=== PATIENT | female | born 1960 | race Caucasian/White ===

== ENCOUNTER 2016-07-27 14:11 | Emergency (ER) | payer OTHER, MEDICARE ==
[2016-07-27] MEDS ORDERED: Ondansetron INJ* 2 MG/ML VIAL IV ONE ×2 (14:30→15:30)
[2016-07-27 14:56] LABS: Hematocrit 43 % (35-47); Hemoglobin 14.3 g/dl (12.0-16.0); Mean Corpuscular HGB Conc 33 g/dl (31-36); Mean Corpuscular Hemoglobin 30 pg (27-31); Mean Corpuscular Volume 90 fL (80-97); Mean Platelet Volume 8 um3 (7.4-10.4); Red Blood Count 4.76 10^6/ul (4.0-5.4); Red Cell Distribution Width 14 % (10.5-15); White Blood Count 7.5 10^3/ul (3.5-10.8)
--- NOTE | 2016-07-27 15:15 | RAD ---
INDICATION: Right upper quadrant pain. COMPARISON: Comparison is made with a prior right upper quadrant ultrasound from November 23, 2011. TECHNIQUE: Multiple real-time images of the right upper quadrant were obtained. FINDINGS: The patient is status post cholecystectomy. No intra or extrahepatic ductal distention is present. The common bile duct measured 0.5 cm in diameter. The liver is normal in size without significant focal abnormality. The pancreas is partially obscured by overlying bowel gas. The right kidney is normal in size without evidence for hydronephrosis. IMPRESSION: STATUS POST CHOLECYSTECTOMY, OTHERWISE UNREMARKABLE STUDY.
--- NOTE | 2016-07-27 15:25 | RAD ---
HISTORY: Chest pain COMPARISONS: August 05, 2015 VIEWS:1: Single frontal portable view of the chest at 3:00 PM FINDINGS: LINES AND TUBES: None. CARDIOMEDIASTINAL SILHOUETTE: The cardiomediastinal silhouette is normal for portable technique. PLEURA: The costophrenic angles are sharp. No pleural abnormalities are noted. LUNG PARENCHYMA: The lungs are clear. ABDOMEN: The upper abdomen is clear. There is no subphrenic gas. BONES AND SOFT TISSUES: No bone or soft tissue abnormalities are noted. IMPRESSION: NO ACTIVE CARDIOPULMONARY DISEASE.
[2016-07-27] MEDS ORDERED: NS 0.9% 1000 ML* 1,000 ML IV ONE (15:30)
[2016-07-27 15:51] LABS: T4 8.52 g/dL (6.09-12.23)
[2016-07-27 15:52] LABS: TSH (Thyroid Stimulating Horm) 1.59 mcIU/mL (0.34-5.60)
[2016-07-27 16:13] LABS: Albumin 4.5 g/dL (3.2-5.2); BUN/Creatinine Ratio 10.6 (8-20); EGFR Non-African American 55.2 (>60); Globulin 3.2 g/dL (2-4); Total Bilirubin 0.3 mg/dL (0.2-1.0); Total Protein 7.7 g/dL (6.4-8.9)
[2016-07-27] MEDS ORDERED: fentaNYL* 50 MCG/ML 2 ML VIAL (100 MCG VIAL) IV SLOW PU ONE (18:16)
--- NOTE | 2016-07-27 18:38 | RAD ---
INDICATION: Right flank pain COMPARISON: CT abdomen pelvis 3 2014 TECHNIQUE: Noncontrast axial source images were acquired from the level hemidiaphragms to the symphysis pubis as part of CT imaging for renal stone. Lung bases: The lung bases are clear. Liver: The liver is normal in size. Noncontrast imaging shows no evidence of a hepatic mass or ductal dilatation. Gallbladder: Cholecystectomy. Spleen: The spleen is normal in size. The noncontrast CT appearance is normal. Pancreas: Noncontrast imaging shows no pancreatic mass or ductal dilitation. Adrenal glands: No masses are identified. Kidneys/Bladder: There is no evidence of nephrolithiasis or CT evidence of hydronephrosis. Noncontrast imaging shows no evidence of a renal mass. The bladder is unremarkable.. Adenopathy: There is no evidence of intraperitoneal or retroperitoneal adenopathy. Evaluation is limited without oral contrast. Fluid collections: There are no free or localized fluid collections. Vessels: There are atherosclerotic changes of the aorta and iliac vessels. There is no focal aneurysm. The IVC appears normal Pelvic organs: There is hysterectomy. There is no adnexal mass. There are multiple surgical clips in the minor pelvis GI tract: Evaluation of the bowel is limited without oral contrast. The stomach, small bowel, and lower GI tract appear grossly normal. There are no obstructive findings. The appendix is visualized and appears normal. Soft tissues: No soft tissue abnormalities of the extraperitoneal abdomen or pelvis are identified. Osseous structures: There are no acute osseous findings. IMPRESSION: NO ACUTE CT FINDINGS. NO EVIDENCE OF UROLITHIASIS. NO MASS OR INFLAMMATORY CHANGE. CHOLECYSTECTOMY. HYSTERECTOMY.
[2016-07-27 19:42] VITALS: BP 145/80
--- NOTE | 2016-07-27 20:47 | ED ---
manuel Mckay Timothy, scribed for Darryl Graves MD on 07/27/16 at 1432 . HPI Chest Pain - HPI Summary HPI Summary: Nichole Boggs is a 55 yo female presenting to [facility] with 8/10 left sided CP since 07/22/16. She was seen in [facility] ER for similar Sx 07/23/16. Her pain has persisted in her chest and mid-epigastric region, and increased. She presents today vomiting with excessive belching. She has not taken any PO medication as she drove here today, but did take dilaudid and zofran last night. Pt's MHx includes angina, CAD, HLD, HTN, coagulopathy, migraine, CVA, seizures, PE, GERD , obesity, kidney stones, hypothyroidism, PTSD, panic disorder, depression, anxietycholecystectomy, hysterectomy, coronary artery spasms. - History of Current Complaint Time Seen by Provider: 07/27/16 14:30 Hx Obtained From: Patient Onset/Duration: Started Days Ago, Still Present, Worse Since - now Timing: Constant Initial Severity: Moderate Current Severity: Moderate Pain Intensity: 8 Pain Scale Used: 0-10 Numeric Chest Pain Location: Discrete at: - left sided Chest Pain Radiates: No Aggravating Factor(s): Nothing Alleviating Factor(s): Nothing Associated Signs and Symptoms: Positive: Chest Pain, Nausea, Abdominal Pain, Vomiting - Additional Pertinent History Primary Care Physician: [id number] - Allergy/Home Medications Allergies/Adverse Reactions: Allergies Allergy/AdvReac Type Severity Reaction Status Date / Time Bee Venom Allergy Severe Anaphylatic Verified 08/06/15 01:20 Shock Hydroxyzine [From Atarax] Allergy Mild Anxiety Verified 08/06/15 01:20 Amitriptyline Allergy See Comment Verified 08/06/15 01:20 CI Pigment Blue 63 Allergy seizure Verified 08/06/15 01:20 [From Cymbalta] Ciprofloxacin [From Cipro] Allergy Itching Verified 08/06/15 01:20 Duloxetine [From Cymbalta] Allergy seizure Verified 08/06/15 01:20 Morphine Allergy Difficulty Verified 08/06/15 01:20 Breathing Sulfa Antibiotics Allergy Unknown Verified 08/06/15 01:25 Reaction Details Amoxicillin [From Augmentin] AdvReac Intermediate NAUSEA/VOMI Verified 08/06/15 01:20 T Clavulanic Acid AdvReac Intermediate NAUSEA/VOMI Verified 08/06/15 01:20 [From Augmentin] T almonds Allergy See Comment Uncoded 08/06/15 01:20 PMH/Surg Hx/FS Hx/Imm Hx Endocrine/Hematology History: Reports: Hx Anticoagulant Therapy, Hx Blood Disorders, Hx Thyroid Disease - benign tumor, Other Endocrine/Hematological Disorders - pt states blood disorder but unable to tell what its called Denies: Hx Diabetes, Hx Anemia Cardiovascular History: Reports: Hx Angina, Hx Coronary Artery Disease, Hx Hypercholesterolemia, Hx Hypertension, Other Cardiovascular Problems/Disorders - HX OF STROKE 2009 HX OF PE X2 MOST RECENT 2006 Denies: Hx Congestive Heart Failure, Hx Myocardial Infarction, Hx Pacemaker/ ICD, Hx Valvular Heart Disease Respiratory History: Reports: Hx Pneumonia, Hx Pulmonary Embolism, Hx Seasonal Allergies Denies: Hx Asthma, Hx Chronic Obstructive Pulmonary Disease (COPD) GI History: Reports: 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., Hx Gastroesophageal Reflux Disease, Hx Gastrointestinal Bleed, Hx Hiatal Hernia, Other GI Disorders - Esophageal spasms Denies: Hx Jaundice History: Reports: Hx Kidney Stones - 4x Denies: Hx Dialysis, Hx Renal Disease Musculoskeletal History: Reports: Hx Arthritis, Hx Back Problems, Hx Bursitis, Hx Orthopedic Injury, Hx Osteoporosis Sensory History: Reports: Hx Contacts or Glasses, Hx Legally Blind - L eye Denies: Hx Hearing Aid Opthamlomology History: Reports: Hx Contacts or Glasses, Hx Legally Blind - L eye Neurological History: Reports: Hx Headaches, Hx Migraine, Hx Seizures - 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, Other Neuro Impairments/Disorders - 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 Psychiatric History: Reports: Hx Anxiety, Hx Depression, Hx Panic Disorder, Hx Post Traumatic Stress Disorder - Cancer History Cancer Type, Location and Year: CERVICAL CA Hx Chemotherapy: No Hx Radiation Therapy: No - Surgical History Surgery Procedure, Year, and Place: GALLBLADDER 98,T&A 91, OVARY REMOVED, SHOULDER X3,WRIST,HYSTERECTOMY,TONSILS Hx Anesthesia Reactions: No - Immunization History Date of Tetanus Vaccine: PT STATES UNSURE Date of Influenza Vaccine: NONE Infectious Disease History: No Infectious Disease History: Denies: Traveled Outside the [place] in Last 30 Days - Family History Known Family History: Positive: Cardiac Disease, Blood Disorder - Social History Alcohol Use: None Hx Substance Use: No Substance Use Type: Reports: None Substance Use Comment - Amount & Last Used: Fentanyl patch 75mcg. Hx Tobacco Use: No Smoking Status (MU): Never Smoked Tobacco Review of Systems Constitutional: Negative Eyes: Negative ENT: Negative Positive: Chest Pain Respiratory: Negative Positive: Abdominal Pain, Vomiting, Nausea Genitourinary: Negative Musculoskeletal: Negative Skin: Negative Neurological: Negative Psychological: Normal All Other Systems Reviewed And Are Negative: Yes Physical Exam - Summary Physical Exam Summary: VITAL SIGNS: Reviewed. GENERAL: Patient is an obese female whos is actively vomiting in the ED. Patient is not in any acute respiratory distress. HEAD AND FACE: No signs of trauma. No ecchymosis, hematomas or skull depressions. No sinus tenderness. EYES: PERRLA, EOMI x 2, No injected conjunctiva, no nystagmus. EARS: Hearing grossly intact. Ear canals and tympanic membranes are within normal limits. MOUTH: Oropharynx within normal limits. NECK: Supple, trachea is midline, no adenopathy, no JVD, no carotid bruit, no c- spine tenderness, neck with full ROM. CHEST: Symmetric, no tenderness at palpation LUNGS: Clear to auscultation bilaterally. No wheezing or crackles. CVS: Regular rate and rhythm, S1 and S2 present, no murmurs or gallops appreciated. ABDOMEN: Soft, Positive RUQ tenderness. No signs of distention. No rebound no guarding, and no masses palpated. Bowel sounds are normal. EXTREMITIES: FROM in all major joints, no edema, no cyanosis or clubbing. NEURO: Alert and oriented x 3. No acute neurological deficits. Speech is normal and follows commands. SKIN: Dry and warm Triage Information Reviewed: Yes Vital Signs On Initial Exam: Initial Vitals Temp Pulse Resp BP Pulse Ox 99.1 F 101 20 138/97 100 07/27/16 14:15 07/27/16 14:15 07/27/16 14:15 07/27/16 14:15 07/27/16 14:15 Vital Signs Reviewed: Yes Diagnostics - Vital Signs Vital Signs Temp Pulse Resp BP Pulse Ox 07/27/16 14:15 99.1 F 101 20 138/97 100 - Laboratory Result Diagrams: 07/27/16 14:40 07/27/16 14:40 Lab Statement: Any lab studies that have been ordered have been reviewed, and results considered in the medical decision making process. - Radiology CXR Xray Interpretation: No Acute Changes - IMPRESSION: NO ACTIVE CARDIOPULMONARY DISEASE. Radiology Interpretation Completed By: Radiologist - CT A/P CT Interpretation: No Acute Changes - IMPRESSION: NO ACUTE CT FINDINGS. NO EVIDENCE OF UROLITHIASIS. NO MASS OR INFLAMMATORY CHANGE. CHOLECYSTECTOMY. HYSTERECTOMY. CT Interpretation Completed By: Radiologist - Ultrasound No standard instances Ultrasound Interpretation: No Acute Changes - IMPRESSION: STATUS POST CHOLECYSTECTOMY, OTHERWISE UNREMARKABLE STUDY. Ultrasound Interpretation Completed By: Radiologist - US abdomen - EKG 1423 Cardiac Rate: Tachycardia - 102 BPM EKG Interpretation: Sinus tachycardia @ 102 BPM, no STEMI Re-Evaluation - Re-Evaluation First Eval Re-Evaluation Time: 19:19 Change: Improved Comment: Pt was informed of results of imaging and lab studies. She is agreeable to the current course of Tx and discharge plan. Chest Pain Course/Dx - Course Assessment/Plan: Nichole Boggs is a 55 yo female presenting to [facility] with left sided CP and N/V since 07/22/16, seen in [facility] ED 07/23/16. Pt's bloodwork was wnl, except creatinine 1.04 glucose 102. Her abd US shows no acute pathology as does her A/P CT. In her ED course, she was given zofran for vomiting, and morphine for pain. She was hydstated via IV. Two troponin tests were conducted 4 hours apart, both were negative. Therefore, Pt will be discharged with instructions to follow up with her PCP, particularly if her symptoms persist. She is hemodynamically stable at this time. I believe patient may benefit of a ERCP. She reports pain and and vomiting only starts after eating meals. I discussed all the findings and test results with the patient. Patient was instructed to return to the emergency room immediately if any of the symptoms return or worsens. They were explained the possibility of an early abdominal pathology which was not detected at this time despite the physical exam and testing. They understand and agree. Abdominal exam before discharge: Soft, NT. No signs of distention. BS present. No rebound no guarding , and no masses palpated. Patient is alert and oriented and hemodynamically stable. Patient is to follow up with primary care physician in the next 2 to 3 days. Patient agree and understands. - Chest Pain Differential Diagnosis/HQI/PQRI: Acute MS, ACS, Angina, CHF, GI Disease, Lower Respiratory Infection - Diagnoses Provider Diagnoses: Abdominal pain, Chest pain, Nausea, Vomiting Discharge - Discharge Plan Condition: Stable Disposition: HOME Prescriptions: Ondansetron ODT TAB* [Zofran 4 MG Odt TAB*] 4 mg PO Q6H PRN #10 tab.odt PRN Reason: Vomiting Patient Education Materials: Abdominal Pain (ED), Chest Pain (ED), Acute Nausea and Vomiting (ED) Referrals: Sandee Gonzalez MD [Primary Care Provider] - As Soon As Possible Additional Instructions: Please follow up with your primary care physician as soon as possible regarding your visit to the emergency department today. Return to the emergency department with any new or recurring symptoms. The documentation as recorded by the manuel smith Timothy accurately reflects the service I personally performed and the decisions made by Star de la rosa Walter, MD.
== END 2016-07-27 19:43 | disposition home or self-care (01) ==
LOC: ED 14:11
DX: R07.9 Chest pain, unspecified (principal); R11.2 Nausea with vomiting, unspecified; R10.9 Unspecified abdominal pain; Z90.49 Acquired absence of other specified parts of digestive tract
CPT/HCPCS: 36415; 71010; 74176; 76705; 80053; 82550; 82553; 83605; 83735; 84436; 84443; 84484; 85025; 85610; 85730; 93005; 96374; 96375; 99283; J2405; J3010

== ENCOUNTER 2016-08-08 13:22 | Inpatient (IN) | payer OTHER, MEDICARE ==
[2016-08-08] MEDS ORDERED: Morphine INJ* 4 MG/ML 1 ML SYRINGE IV ONE (13:56)
[2016-08-08] MEDS ORDERED: NS 0.9% 1000 ML* 1,000 ML IV ONE (13:56)
[2016-08-08 14:18] LABS: Hematocrit 44 % (35-47); Hemoglobin 14.9 g/dl (12.0-16.0); Mean Corpuscular HGB Conc 34 g/dl (31-36); Mean Corpuscular Hemoglobin 30 pg (27-31); Mean Corpuscular Volume 90 fL (80-97); Mean Platelet Volume 9 um3 (7.4-10.4); Red Blood Count 4.92 10^6/ul (4.0-5.4); Red Cell Distribution Width 14 % (10.5-15); White Blood Count 6.9 10^3/ul (3.5-10.8)
[2016-08-08 14:32] LABS: Albumin 4.7 g/dL (3.2-5.2); BUN/Creatinine Ratio 13.2 (8-20); C Reactive Protein 2.81 mg/L (< 5.00); Calcium 10.1 mg/dL (8.6-10.3); EGFR African American 63.9 (>60); EGFR Non-African American 49.7 (>60); Globulin 3.2 g/dL (2-4); Magnesium 1.8 mg/dL (1.9-2.7); Potassium 3.8 mmol/L (3.5-5.0); Total Bilirubin 0.5 mg/dL (0.2-1.0); Total Protein 7.9 g/dL (6.4-8.9)
[2016-08-08] MEDS ORDERED: Ondansetron INJ* 2 MG/ML VIAL IV ONE (15:10)
[2016-08-08] MEDS ORDERED: Morphine INJ* 2 MG/ML 1 ML SYRINGE IV ONE ×2 (15:56→17:37)
--- NOTE | 2016-08-08 15:56 | ED ---
Abdominal Pain/Female - HPI Summary HPI Summary: Patient arrives to ED after transfer by Dr. Rhodes in GI for chest pain. However, on arrival, patient is complaining of LUQ pain and epigastric pain radiating to the back since this morning. She states the pain began about 1 week ago and she was able to keep it at bay by not eating and drinking very little. She ate a biscuit this morning and states the pain returned at 10/10 immediately after eating. She is uncomfortable on exam and tearful. She continues to have gas and is burping on exam. She notes to 5 days of diarrhea with "pus" look to it. She has a significant PMHx of CAD and stroke. She takes Lovenox once daily for previous stroke. She was seen at Dr. Rhodes's office 2 weeks ago, but did not have the severity of symptoms she has currently. PCP is Dr. Gonzalez. - History of Current Complaint Chief Complaint: EDAbdPain Stated Complaint: ABD PAIN Time Seen by Provider: 08/08/16 13:32 Hx Obtained From: Patient ?: No Onset/Duration: Gradual Onset Timing: Constant Severity Initially: Moderate Severity Currently: Severe Pain Intensity: 6 Pain Scale Used: 0-10 Numeric Location: Discrete At: RUQ, Epigastric Radiates: Yes Radiates to: Back Character: Sharp, Burning Aggravating Factor(s): Food Alleviating Factor(s): Spontaneous Resolution - by not eating - Risk Factors Ectopic Risk Factor: Maternal Age ^ 30 Ovarian Torsion Risk Factor: Hysterectomy Allergies/Adverse Reactions: Allergies Allergy/AdvReac Type Severity Reaction Status Date / Time Bee Venom Allergy Severe Anaphylatic Verified 08/08/16 21:15 Shock Hydroxyzine [From Atarax] Allergy Mild Anxiety Verified 08/08/16 21:15 Amitriptyline Allergy See Comment Verified 08/08/16 21:15 CI Pigment Blue 63 Allergy seizure Verified 08/08/16 21:15 [From Cymbalta] Ciprofloxacin [From Cipro] Allergy Itching Verified 08/08/16 21:15 Duloxetine [From Cymbalta] Allergy seizure Verified 08/08/16 21:15 Morphine Allergy Difficulty Verified 08/08/16 21:15 Breathing Sulfa Antibiotics Allergy Unknown Verified 08/08/16 21:15 Reaction Details Amoxicillin [From Augmentin] AdvReac Intermediate NAUSEA/VOMI Verified 08/08/16 21:15 T Clavulanic Acid AdvReac Intermediate NAUSEA/VOMI Verified 08/08/16 21:15 [From Augmentin] T almonds Allergy See Comment Uncoded 08/08/16 21:15 Home Medications: Home Medications Coenzyme Q10 (Ubidecarenone) [Coq-10] 400 mg PO BEDTIME 08/08/16 [History Confirmed 08/08/16] Gabapentin (Once-Daily) [Gralise] 600 mg PO BEDTIME 08/08/16 [History Confirmed 08/08/16] Losartan Potassium [Cozaar] 50 mg PO BEDTIME 08/08/16 [History Confirmed ] Multiple Vitamins W/ Minerals [Multivitamin Women] 1 tab PO DAILY 08/08/16 [ History Confirmed 08/08/16] Rosuvastatin Calcium [Crestor] 10 mg PO BEDTIME 08/08/16 [History Confirmed ] PMH/Surg Hx/FS Hx/Imm Hx Previously Healthy: No - CVA, CAD, PVD, thryoid, on anticoagulants Endocrine/Hematology History: Reports: Hx Anticoagulant Therapy, Hx Blood Disorders, Hx Thyroid Disease - benign tumor, Other Endocrine/Hematological Disorders - pt states blood disorder but unable to tell what its called Denies: Hx Diabetes, Hx Anemia Cardiovascular History: Reports: Hx Angina, Hx Coronary Artery Disease, Hx Hypercholesterolemia, Hx Hypertension, Other Cardiovascular Problems/Disorders - HX OF STROKE 2008 HX OF PE X2 MOST RECENT 2006 Denies: Hx Congestive Heart Failure, Hx Myocardial Infarction, Hx Pacemaker/ ICD, Hx Valvular Heart Disease Respiratory History: Reports: Hx Pneumonia, Hx Pulmonary Embolism, Hx Seasonal Allergies Denies: Hx Asthma, Hx Chronic Obstructive Pulmonary Disease (COPD) GI History: Reports: 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., Hx Gastroesophageal Reflux Disease, Hx Gastrointestinal Bleed, Hx Hiatal Hernia, Other GI Disorders - Esophageal spasms Denies: Hx Jaundice History: Reports: Hx Kidney Stones - 4x Denies: Hx Dialysis, Hx Renal Disease Musculoskeletal History: Reports: Hx Arthritis, Hx Back Problems, Hx Bursitis, Hx Orthopedic Injury, Hx Osteoporosis Sensory History: Reports: Hx Contacts or Glasses, Hx Legally Blind - L eye Denies: Hx Hearing Aid Opthamlomology History: Reports: Hx Contacts or Glasses, Hx Legally Blind - L eye Neurological History: Reports: Hx CVA, Hx Headaches, Hx Migraine, Hx Seizures - Seizures caused by cymbalta 2009, Other Neuro Impairments/Disorders - 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 Psychiatric History: Reports: Hx Anxiety, Hx Depression, Hx Panic Disorder, Hx Post Traumatic Stress Disorder - Cancer History Cancer Type, Location and Year: CERVICAL CA Hx Chemotherapy: No Hx Radiation Therapy: No - Surgical History Surgery Procedure, Year, and Place: GALLBLADDER 98,T&A 91, OVARY REMOVED, SHOULDER X3,WRIST,HYSTERECTOMY,TONSILS Hx Anesthesia Reactions: No - Immunization History Date of Tetanus Vaccine: PT STATES UNSURE Date of Influenza Vaccine: NONE Infectious Disease History: No Infectious Disease History: Denies: Traveled Outside the [place] in Last 30 Days - Family History Known Family History: Positive: Cardiac Disease, Hypertension, Blood Disorder - Social History Occupation: Employed Full-time Lives: With Family Alcohol Use: None Hx Substance Use: No Substance Use Type: Reports: None Substance Use Comment - Amount & Last Used: Fentanyl patch 75mcg. Hx Tobacco Use: No Smoking Status (MU): Never Smoked Tobacco Review of Systems Constitutional: Negative Cardiovascular: Negative Respiratory: Negative Positive: Abdominal Pain, Vomiting, Diarrhea - with "pus" look, Nausea Positive: no symptoms reported, see HPI Musculoskeletal: Negative Skin: Negative Neurological: Negative Psychological: Normal All Other Systems Reviewed And Are Negative: Yes Physical Exam Triage Information Reviewed: Yes Vital Signs On Initial Exam: Initial Vitals Temp Pulse Resp BP Pulse Ox 98.8 F 68 22 136/68 97 08/08/16 13:23 08/08/16 13:23 08/08/16 13:23 08/08/16 13:23 08/08/16 13:23 Vital Signs Reviewed: Yes Appearance: Positive: Well-Appearing, Well-Nourished Skin: Positive: Warm, Skin Color Reflects Adequate Perfusion Eyes: Positive: EOMI, SHADI, Conjunctiva Clear Neck: Positive: Supple Respiratory/Lung Sounds: Positive: Clear to Auscultation, Breath Sounds Present Cardiovascular: Positive: Normal, RRR Abdomen Description: Positive: Soft, Other: - tenderness in RUQ and epigastric pain radiating to the back with diarrhea and N/V Bowel Sounds: Positive: Hypoactive Musculoskeletal: Positive: Normal, Strength/ROM Intact Neurological: Positive: Alert, Oriented to Person Place, Time, Speech Normal Psychiatric: Positive: Normal AVPU Assessment: Alert - [place] Coma Scale Coma Scale Total: 15 Diagnostics - Vital Signs Vital Signs Temp Pulse Resp BP Pulse Ox 08/08/16 15:00 91 96 08/08/16 14:18 18 08/08/16 14:00 90 99 08/08/16 13:36 93 97 08/08/16 13:35 133/66 08/08/16 13:23 98.8 F 68 22 136/68 97 - Laboratory Lab Results: Lab Results 08/08/16 08/08/16 08/08/16 Range/Units 13:55 13:55 13:55 WBC 6.9 (3.5-10.8) 10^3/ul RBC 4.92 (4.0-5.4) 10^6/ul Hgb 14.9 (12.0-16.0) g/dl Hct 44 (35-47) % MCV 90 (80-97) fL MCH 30 (27-31) pg MCHC 34 (31-36) g/dl RDW 14 (10.5-15) % Plt Count 312 (150-450) 10^3/ul MPV 9 (7.4-10.4) um3 Neut % (Auto) 59.4 (38-83) % Lymph % (Auto) 27.2 (25-47) % [place] % (Auto) 9.9 H (1-9) % Eos % (Auto) 2.8 (0-6) % Baso % (Auto) 0.7 (0-2) % Absolute Neuts (auto) 4.1 (1.5-7.7) 10^3/ul Absolute Lymphs (auto) 1.9 (1.0-4.8) 10^3/ul Absolute Monos (auto) 0.7 (0-0.8) 10^3/ul Absolute Eos (auto) 0.2 (0-0.6) 10^3/ul Absolute Basos (auto) 0 (0-0.2) 10^3/ul Absolute Nucleated RBC 0 10^3/ul Nucleated RBC % 0 Sodium 137 (133-145) mmol/L Potassium 3.8 (3.5-5.0) mmol/L Chloride 102 (101-111) mmol/L Carbon Dioxide 24 (22-32) mmol/L Anion Gap 11 (2-11) mmol/L BUN 15 (6-24) mg/dL Creatinine 1.14 H (0.51-0.95) mg/dL Est GFR ( Amer) 63.9 (>60) Est GFR (Non-Af Amer) 49.7 (>60) BUN/Creatinine Ratio 13.2 (8-20) Glucose 78 (70-100) mg/dL Lactic Acid 1.0 (0.5-2.0) mmol/L Calcium 10.1 (8.6-10.3) mg/dL Magnesium 1.8 L (1.9-2.7) mg/dL Total Bilirubin 0.50 (0.2-1.0) mg/dL AST 33 (13-39) U/L ALT 38 (7-52) U/L Alkaline Phosphatase 61 (34-104) U/L Total Creatine Kinase 71 (10-223) U/L C-Reactive Protein 2.81 (< 5.00) mg/L Total Protein 7.9 (6.4-8.9) g/dL Albumin 4.7 (3.2-5.2) g/dL Globulin 3.2 (2-4) g/dL Albumin/Globulin Ratio 1.5 (1-3) Amylase 31 (29-103) U/L Lipase 20 (11.0-82.0) U/L Result Diagrams: 08/09/16 13:22 08/08/16 13:55 Lab Statement: Any lab studies that have been ordered have been reviewed, and results considered in the medical decision making process. - CT No standard instances CT Interpretation: Positive (See Comments) CT Interpretation Completed By: Radiologist - IMPRESSION: 1. Hepatic steatosis. 2. Post cholecystectomy. 3. Potential early acute appendicitis with inflammatory change surrounding the appendix new compared with the July 27, 2016 exam. As this doesn't grossly correlate with LEFT upper quadrant pain correlate with clinical assessment. 4. Post hysterectomy. Negative for adnexal region lesions. 5. Negative for lymphadenopathy. 6. Peripheral vascular disease without aneurysm of the abdominal aorta. Abdominal Pain Fem Course/Dx - Course Course Of Treatment: Morphine given in ambulance. Patient arrives with 10/10 RUQ and epigastric tenderness which radiates to the back. No CVA tenderness. This has been present for [address] abd pelvis shows: 3. Potential early acute appendicitis with inflammatory change surrounding the appendix. new compared with the July 27, 2016 exam. As this doesn't grossly correlate with LEFT. upper quadrant pain correlate with clinical assessment. Patient is not well controlled on morphine. Fluids given. D-Dimer negative. Pleurisy symptoms. Lovenox daily, unable to take NSAIDS. Dr. De Jesus called at 6 :30p for possible surgical need for appendicitis. Dr. Fleming called at 6:45p for possible pain control admit. Patient agrees to stay if needed. EKG WNL NSR. - Diagnoses Differential Diagnosis: Positive: Appendicitis, Bowel Obstruction, Diverticulitis, Hepatitis, Pancreatitis Provider Diagnoses: Abdominal pain Discharge - Discharge Plan Condition: Guarded Disposition: ADMITT[facility] TO [facility]
[2016-08-08 16:14] LABS: Urine Bacteria Absent (Absent); Urine Bilirubin Negative (Negative); Urine Glucose Negative (Negative); Urine Nitrite Negative (Negative)
[2016-08-08] MEDS ORDERED: Iodixanol* (CONTRAST) 320 MG/ML 100 ML SDV IV ONE (16:27)
--- NOTE | 2016-08-08 17:53 | RAD ---
INDICATION: Severe epigastric and LEFT upper quadrant pain radiating to the back. Post cholecystectomy. Previous ovary resection and hysterectomy. History of cervical carcinoma. COMPARISON: July 27, 2016 CT. TECHNIQUE: Multidetector CT images were obtained from the lung bases to the ischial tuberosities with 125 mL Visipaque 320 IV and oral contrast. Multiplanar reformation. REPORT: Unremarkable visualized inferior thorax. Decreased density of the liver consistent with fatty infiltration. Negative for focal hepatic lesions. Post cholecystectomy. Negative for biliary dilatation. Unremarkable pancreas and spleen. Negative for CT abnormality of the upper GI or small bowel. 7 mm diameter minimally prominent appendix demonstrates gas within the proximal to mid segment. Mild periappendiceal fat stranding which appears new compared with the prior exam. No appendicolith visualized. A few colonic diverticula are visualized. No evidence for acute diverticulitis. Negative for ascites, free air, or significant hernias. Normal adrenal glands. Unremarkable kidneys with symmetric nephrograms and pyelograms. Unremarkable ureters and largely decompressed urinary bladder. Post hysterectomy. Pelvic surgical clips. No suspicious lesions at the adnexal regions. Negative for lymphadenopathy. Atherosclerotic plaque of normal diameter abdominal aorta and iliac arteries. Physiologic distention of the IVC. Negative for suspicious osseous lesions. IMPRESSION: 1. Hepatic steatosis. 2. Post cholecystectomy. 3. Potential early acute appendicitis with inflammatory change surrounding the appendix new compared with the July 27, 2016 exam. As this doesn't grossly correlate with LEFT upper quadrant pain correlate with clinical assessment. 4. Post hysterectomy. Negative for adnexal region lesions. 5. Negative for lymphadenopathy. 6. Peripheral vascular disease without aneurysm of the abdominal aorta.
[2016-08-08] MEDS ORDERED: Famotidine IV* 10 MG/ML 2 ML (20 mg) IV SLOW PU ONE (18:36)
[2016-08-08] MEDS: HYDROmorphone* 1 MG/ML 1 ML SYR IV SLOW PU PRN (21:10)
[2016-08-08] MEDS ORDERED: Heparin VIAL(*) 5000 UNITS/ML VIAL (FIVE THOUSAND) SUBCUT SCH (22:00)
[2016-08-08] MEDS: NS 0.9% 1000 ML* 1,000 ML IV SCH (22:11)
[2016-08-08] MEDS: Ondansetron INJ* 2 MG/ML VIAL IV PRN (22:18)
[2016-08-08] MEDS ORDERED: GABAPENTIN 600 MG PO SCH (22:45)
[2016-08-08] MEDS: Ondansetron ODT TAB* 4 MG PO PRN (23:52)
[2016-08-09] MEDS ORDERED: PROCHLORPERAZINE INJ 5 MG/ML 2 ML VIAL ONE (00:51)
[2016-08-09] MEDS: PROCHLORPERAZINE INJ 5 MG/ML 2 ML VIAL IV PRN (00:54)
[2016-08-09] MEDS: Atorvastatin* 20 MG TAB PO SCH ×2 (01:16→20:21)
[2016-08-09] MEDS: Losartan TAB* 25 MG PO SCH ×2 (01:16→20:21)
[2016-08-09] MEDS: Ondansetron INJ* 2 MG/ML VIAL IV PRN ×4 (02:24→23:30)
[2016-08-09] MEDS: Gabapentin CAP(*) 300 MG PO SCH ×2 (02:25→20:20)
[2016-08-09] MEDS: Diltiazem CD CAP* 180 MG PO SCH ×2 (03:00→20:19)
[2016-08-09] MEDS: Ondansetron ODT TAB* 4 MG PO PRN (05:51)
[2016-08-09] MEDS: Levothyroxine TAB* 50 MCG TAB PO SCH (05:51)
[2016-08-09] MEDS: HYDROmorphone* 1 MG/ML 1 ML SYR IV SLOW PU PRN ×4 (06:21→23:30)
--- NOTE | 2016-08-09 08:09 | HP ---
HISTORY AND PHYSICAL: DATE OF ADMISSION: 08/08/16 PRIMARY CARE PHYSICIAN: Sandee Gonzalez MD COLD STORAGE WORKER: Darien Lopez MD CHIEF COMPLAINT: Abdominal pain. HISTORY OF PRESENT ILLNESS: The patient is a 55-year-old woman who presents to [facility] with a chief complaint of abdominal pain, mostly on the left upper quadrant. She states she started having initially in the upper right quadrant. A couple of weeks ago, went to [place] for further evaluation. They did a workup in the ER that apparently was negative and she was sent home. She said she stopped eating for a couple of days, felt better, but then it came back again. She saw Dr. Lopez after that and again stopped eating. She felt better and then she went ahead and had breakfast this past Tuesday at [employer] with her grandchildren. After that she developed significant nausea , vomiting, and diarrhea within a few hours. She stopped eating this weekend after that. She then tried some asad sixto and crackers and felt a little bit better. This morning, ate breakfast again. She had some asad sixto and crackers and then developed left upper quadrant abdominal pain that was significant. She had no fevers or chills. Had some nausea and vomiting. No diarrhea at this time. In the ED, the patient was evaluated and had CAT scan, which indicated possibly early appendicitis if consistent with her clinical picture. The issue is that this is not consistent with her clinical picture. PAST MEDICAL HISTORY: She has a past medical history significant for hypercoagulable state, pulmonary emboli, hypertension, depression, anxiety, migraines, hypothyroidism, retinal artery occlusion on the left, chronic back pain, and ischemic colitis. PAST SURGICAL HISTORY: Significant for EDITH-BSO, laparoscopic cholecystectomy, and 3 right shoulder surgeries. CURRENT MEDICATIONS: Are as follows: 1. Multivitamin 1 tablet daily. 2. Coenzyme Q10 400 mg at bedtime. 3. Rosuvastatin 10 mg at bedtime. 4. Losartan 50 mg at bedtime. 5. Gabapentin 600 mg at bedtime. 6. Lovenox 150 mg subcu q.24 hours. 7. Diltiazem 180 mg at bedtime. 8. Aspirin 81 mg daily. 9. Omeprazole 20 mg in the morning. 10. Levothyroxine 50 mcg daily. 11. Zofran 4 mg every 6 hours as needed. ALLERGIES/ADVERSE REACTIONS: HYDROXYZINE, CYMBALTA, AUGMENTIN, MORPHINE, AMITRIPTYLINE, C1 PIGMENT BLUE, BEE VENOM, ALMONDS, SULFA, and CIPRO. FAMILY HISTORY: Significant for a mother who had a history of cardiomyopathy. Father of coronary artery disease and heart attack at age 49. She has a sister, who had RI at age 55, and also a history of psoriatic arthritis in her mother who has a history of psoriatic arthritis. SOCIAL HISTORY: No tobacco, alcohol, or recreational drug use. 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 She is to her , Gil, also known as Kamaljit Boggs, who is her healthcare proxy. She has 2 children. REVIEW OF SYSTEMS: A 14-point review of systems is completed with the patient. All pertinent positives and negatives are in the history of present Illness, otherwise it is negative. PHYSICAL EXAMINATION GENERAL: A pleasant woman lying in bed, in no acute distress. VITAL SIGNS: Temperature 97.2 degrees, heart rate 82 beats per minute, respiratory rate 16 breaths per minute, pulse ox 97%, and blood pressure 138/81. HEENT: Normocephalic and atraumatic. Pupils are equal, round and reactive to light. Moist mucous membranes. NECK: Supple. No JVD, bruits, palpable thyroid or lymphadenopathy. CHEST: Clear to auscultation and percussion bilaterally. CARDIOVASCULAR: S1, S2 appreciated. ABDOMEN: Positive bowel sounds in all 4 quadrants. Soft, nontender, and nondistended. EXTREMITIES: No cyanosis, clubbing, or edema; +2 peripheral pulses bilaterally. NEUROLOGIC: Alert and oriented x3. Moves all extremities. SKIN: No rashes or abnormalities. DIAGNOSTIC STUDIES/LAB DATA: White count 6.9, hemoglobin 14.9, hematocrit 44, and platelets 312. Sodium 137, potassium 3.8, chloride 102, CO2 of 24, BUN 15, creatinine 1.14, and glucose is 78. D-dimer is less than 200. Urine is unremarkable. CT of the abdomen and pelvis was interpreted by Radiology as hepatic steatosis, post cholecystectomy, potential early acute appendicitis with inflammatory changes surrounding the appendix, new compared to 07/27/16 exam. As this does not closely correlate with left upper quadrant pain correlating with clinical assessment, post hysterectomy, negative for adnexal lesions, negative for lymphadenopathy, peripheral vascular disease, without aneurysm of the abdominal aorta. EKG shows normal sinus rhythm at 77 beats per minute, normal axis, and no acute ST- T wave changes. ASSESSMENT AND PLAN: 1. Abdominal pain: At this point, it is unexplainable as to her pain. She states she has no real history of irritable bowel syndrome. His belly is soft on physical examination. It is actually nontender when I palpated. For now, I will observe her overnight. Surgery is to see her in the morning, IV fluids, and pain management. 2. Hypothyroidism: Stable. Continue Synthroid. 3. Hypertension: Borderline control, continue current regimen, and adjust medications accordingly. 4. Hypercoagulable state: Continue Lovenox. 5. FEN: N.P.O. 6. DVT prophylaxis: She is on Lovenox. 7. Code status: The patient is a full code. TIME SPENT: Over 75 minutes was spent on this H and P; more than 40 minutes of which was spent in direct face-to -face contact with the patient, evaluation, physical exam, counseling, and coordination of care. CC: Sandee Gonzalez MD; Darien Lopez MD * [id number]/[facility] #: [id number] MTDD
[2016-08-09] MEDS: Multivitamins/Minerals TAB PO SCH (08:35)
[2016-08-09] MEDS: Enoxaparin(*) 150 MG/ML 1 ML SYRINGE SUBCUT SCH (08:58)
[2016-08-09] MEDS: Omeprazole CAP* 20 MG PO SCH (09:10)
[2016-08-09] MEDS: NS 0.9% 1000 ML* 1,000 ML IV SCH ×2 (09:11→19:54)
--- NOTE | 2016-08-09 09:55 | CONS ---
CONSULTATION NOTE DATE OF CONSULT: 08/09/16 PATIENT OF: Dr. Michael REFERRED TO: Dr. Jernigan REASON FOR CONSULTATION: Abdominal pain. HISTORY OF PRESENT ILLNESS: Mrs. Boggs is a pleasant, 55-year-old female who was admitted to the hospital via the emergency room last night with complaints of left upper quadrant abdominal pain. Patient notes that her pain started roughly two weeks ago and has been intermittent in nature. The pain usually gets worse after she eats and gets better if she doesn't eat anything. She has not been eating or drinking much for the last two weeks. On Tuesday morning, she had some biscuit and other breakfast items at [employer], after which the pain has gotten severely worse. She described it as a sharp, aching pain, localized to her left upper quadrant and epigastric area with associated nausea and vomiting. Patient was very uncomfortable, for which she was seen at [facility] emergency room initially two weeks ago. She had laboratory workup and a CT scan of the abdomen and pelvis that was essentially unremarkable. Patient was asked to follow up with Dr. Rhodes for a GI consult, and she was seen by him and noted to have more left upper quadrant and epigastric pain for which she was sent to the ER for further evaluation. It is noted that patient has a significnat cardiovascular history with prior cardiac catheterization, but she denied any stent placement at that time. She had laboratory workup and another CT scan last night that was significant for questionable early appendicitis and some inflammation around the appendix, for whcih we were asked to see the patient for further evaluation. Patient, this morning, appears comfortable and she denies any recurrent pain. She has been taking morphine as needed for pain management as well as Zofran for nausea. She also notes diarrhea for the last two days with some pus noted, but denies any blood in the stools. She had her gall bladder out in the past, and she denies any changes in the color of stools, jaundice, or any other associated symptoms. PAST MEDICAL HISTORY: As mentioned above, remarkable for cardiovascular disease , coronary artery disease, PVD, thyroid disease, and she has been chronically on Lovenox as an anticoagulant. She also has a history of a blood disorder, thyroid disease, benign tumor; however, she was unable to tell me exactly why she has been chronically on Lovenox as mentioned above. PAST SURGICAL HISTORY: Significant for cholecystectomy in 1997; T and A in 1990 ; shoulder surgery x3; wrist surgeries; hysterectomy as well as oophorectomy in the past. CURRENT MEDICATIONS: Her medications at home include - 1. Aspirin 81 mg po q daily. 2. Co-enzyme Q10 400 mg po q daily. 3. Diltiazem 120 mg po q daily. 4. Lovenox 150 mg subcu q daily. 5. Gabapentin 600 mg po q daily. 6. Levothyroxine 50 mcg po q daily. 7. Losartan 50 mg po q daily. 8. Multivitamin one tab a day. 9. Prilosec 20 mg po q a.m. 10. Zofran ODT 4 mg po q 6 hours as needed for nausea. 11. Crestor 10 mg po q hs. ALLERGIES: Patient has multiple allergies including on the list - 1. AMOXICILLIN - causing nausea and vomiting. 2. AUGMENTIN - causing nausea and vomiting. 3. SULFA ANTIBIOTICS - causing anaphylactic shock. 4. ALMONDS. 5. CYMBALTA. 6. CIPRO. 7. AMITRIPTYLINE. 8. HYDROXYZINE. 9. MORPHINE - caused difficulty breathing. FAMILY HISTORY: Patient denies any family history of gall bladder disease or colorectal malignancies. SOCIAL HISTORY: Patient is a non-smoker who drinks alcohol rarely, and caffeine intake is minimal. REVIEW OF SYSTEMS: See HPI - otherwise negative. She denies any headache, dizziness, chest pain or shortness of breath. She admits to epigastric and left upper quadrant abdominal pain with associated nausea and vomiting. She also notes diarrhea for the last two days, but denies any blood in the stools. No dysuria, hematuria, or urinary frequency. PHYSICAL EXAMINATION: VITALS: Her vitals this morning showed temperature 97.4, pulse 80, respirations 17, O2 sat 97% on room air, and blood pressure 121/66. GENERAL: She is a pleasant, obese, middle-aged female who appears comfortable and in no acute distress or discomfort at the time of consultation. HEENT: Sclerae anicteric, SUSY, EOMs intact. Oropharynx pink, moist with no exudate. NECK: Supple, trachea midline, no cervical adenopathy, thyromegaly or JVD. LUNGS: Clear to auscultation bilaterally. HEART: Regular rhythm, rate , normal S1 and S2, without rubs, murmurs or gallops. BACK: With normal curvature. No CVA tenderness. BREAST EXAM: Deferred at this time. ABDOMEN: Obese, round, and nondistended. There is moderate tenderness throughout the abdomen, more focused on the left upper quadrant and right lower quadrant respectively. There is some guarding but no rigidity or rebound tenderness noted. There is a focal tenderness at McBurney's point. No hernias, masses or hepatosplenomegaly. EXTREMITIES: Without cyanosis, clubbing, or edema. NEUROLOGIC: Grossly intact. RECTAL EXAM: Deferred at this time. LABORATORY WORKUP: She had a CBC yesterday with white count of 6,900, hemoglobin 14.9, hematocrit 44, and platelets of 312. Her chemistry - sodium 137, potassium 3.8, chloride 102, CO2 24, BUN 15, creatinine 1.1, glucose 78, and lactic acid 1.0. Her LFTs were essentially within normal limits, lipase 20, and magnesium slightly low with value of 1.8. ACCESSORY DIAGNOSTIC DATA: Patient had another CT scan of the abdomen and pelvis last night that was compared to previous study she had two weeks ago. It was noted that she has potentially acute appendicitis with some inflammatory changes noted surrounding the appendix compared to the study she had on . She also had evidence of fatty liver, post hysterectomy, and peripheral vascular disease, but no aneurysm was noted. ASSESSMENT: A 55-year-old female with worsening epigastric and left upper quadrant pain for the past two weeks with associated nausea, vomiting and diarrhea, who had CT scan of the abdomen and pelvis consistent with early acute appendicitis. PLAN: I went on and discussed with patient the findings of her physical exam and CT scan from last night. She appears to be tender on exam, now localized to the right lower quadrant, consistent with acute appendicitis. I went on and discussed with her the rationale, indication, risks and benefits of performing a laparoscopic appendectomy today. Risks include, but are not limited to infection, bleeding, or injury to adjacent structures. There is also her known cardiovascular disease. There's a risk of blood clots, and respiratory issues following her general intubations. She appears to under-stand and wishes to proceed with surgery later today. The case will be discussed with Dr. Jernigan. Patient had her last echocardiogram about a year ago, and she had an EKG that showed sinus rhythm and some abnormal changes with left ventricular hypertrophy yesterday. We will obtain clearance in anticipation to surgery later today. CARMEN COY CC: Dr. Michael; Dr. Rhodes * [id number]/[facility] #: [id number] [facility] CENTERNarciso
[2016-08-09 13:33] LABS: Hematocrit 37 % (35-47); Hemoglobin 12.2 g/dl (12.0-16.0); Mean Corpuscular HGB Conc 33 g/dl (31-36); Mean Corpuscular Hemoglobin 30 pg (27-31); Mean Corpuscular Volume 91 fL (80-97); Mean Platelet Volume 8 um3 (7.4-10.4); Red Blood Count 4.05 10^6/ul (4.0-5.4); Red Cell Distribution Width 14 % (10.5-15); White Blood Count 7.4 10^3/ul (3.5-10.8)
--- NOTE | 2016-08-09 16:13 | PN ---
Subjective Date of Service: 08/09/16 Interval History: Seen and examined with at bedside Of note different man present earlier who pt told nursing was her "work " Pt reporting abdominal pain in multiple places with radiation to back +diarrhea 3 times overnight and several times today with "mucous" no blood +dry heaving Objective Active Medications: Aspirin (Aspirin Ec Low Dose*) 81 mg PO BEDTIME ANDREW Atorvastatin Calcium (Lipitor*) 20 mg PO BEDTIME ANDREW PRN Reason: Protocol Last Admin: 08/09/16 01:16 Dose: Not Given Coenzyme Q10 (Coenzyme Q10 (Nf)) 1 cap PO BEDTIME ANDREW Diltiazem HCl (Cardizem Cd Cap*) 180 mg PO BEDTIME ANDREW Last Admin: 08/09/16 03:00 Dose: Not Given Enoxaparin Sodium (Lovenox(*)) 150 mg SUBCUT Q24HR ANDREW Last Admin: 08/09/16 08:58 Dose: Not Given Gabapentin (Neurontin Cap(*)) 600 mg PO BEDTIME ANDREW Last Admin: 08/09/16 02:25 Dose: 600 mg Sodium Chloride (Ns 0.9% 1000 Ml*) 1,000 mls @ 100 mls/hr IV PER RATE ANDREW Last Admin: 08/09/16 09:11 Dose: 100 mls/hr Levothyroxine Sodium (Synthroid Tab*) 50 mcg PO 0600 ANDREW Last Admin: 08/09/16 05:51 Dose: 50 mcg Losartan Potassium (Cozaar Tab*) 50 mg PO BEDTIME ANDREW Last Admin: 08/09/16 01:16 Dose: Not Given Multivitamins/Minerals (Theragran/Minerals Tab*) 1 tab PO DAILY ANDREW Last Admin: 08/09/16 08:35 Dose: Not Given Omeprazole (Prilosec Cap*) 20 mg PO QAM ANDREW Last Admin: 08/09/16 09:10 Dose: 20 mg Ondansetron HCl (Zofran Inj*) 4 mg IV Q4H PRN PRN Reason: NAUSEA Last Admin: 08/09/16 12:29 Dose: 4 mg Ondansetron HCl (Zofran Odt Tab*) 4 mg PO Q6H PRN PRN Reason: VOMITING Last Admin: 08/09/16 05:51 Dose: 4 mg Oxycodone/Acetaminophen (Percocet 5/325 Tab*) 2 tab PO Q4H PRN PRN Reason: PAIN Prochlorperazine Edisylate (Compazine Inj*) 5 mg IV Q6H PRN PRN Reason: NAUSEA/VOMITING Last Admin: 08/09/16 00:54 Dose: 5 mg Vital Signs 08/08/16 08/08/16 08/08/16 19:00 21:10 21:48 Temperature 97.8 F Pulse Rate 84 80 Respiratory 18 18 Rate Blood Pressure 154/79 (mmHg) O2 Sat by Pulse 96 97 Oximetry 08/08/16 08/08/16 08/08/16 21:55 22:10 22:33 Temperature 97.8 F Pulse Rate 80 Respiratory 18 18 18 Rate Blood Pressure 154/79 (mmHg) O2 Sat by Pulse 97 Oximetry 08/09/16 08/09/16 08/09/16 00:35 04:21 06:21 Temperature 97.2 F 97.4 F Pulse Rate 83 75 Respiratory 16 16 16 Rate Blood Pressure 138/81 139/72 (mmHg) O2 Sat by Pulse 97 99 Oximetry 08/09/16 08/09/16 08/09/16 07:49 08:00 12:28 Temperature 97.4 F Pulse Rate 80 Respiratory 17 16 18 Rate Blood Pressure 121/66 (mmHg) O2 Sat by Pulse 97 Oximetry 08/09/16 15:32 Temperature 98.0 F Pulse Rate 87 Respiratory 18 Rate Blood Pressure 153/87 (mmHg) O2 Sat by Pulse 97 Oximetry Oxygen Devices in Use Now: None Appearance: rocking back and forth in bed, NAD Eyes: No Scleral Icterus, PERRLA Ears/Nose/Mouth/Throat: NL Teeth, Lips, Gums, Clear Oropharnyx, Mucous Membranes Moist Neck: NL Appearance and Movements; NL JVP, Trachea Midline Respiratory: Symmetrical Chest Expansion and Respiratory Effort, Clear to Auscultation Cardiovascular: NL Sounds; No Murmurs; No JVD, RRR Abdominal: - - soft, ND, TTP greatest RUQ, +bs, no rebound gaurding Lymphatic: No Cervical Adenopathy Extremities: No Edema, No Clubbing, Cyanosis Skin: No Rash or Ulcers Neurological: Alert and Oriented x 3 Result Diagrams: 08/09/16 13:22 08/08/16 13:55 Additional Lab and Data: Lab Results 08/08/16 08/08/16 08/08/16 Range/Units 13:55 13:55 13:55 WBC 6.9 (3.5-10.8) 10^3/ul RBC 4.92 (4.0-5.4) 10^6/ul Hgb 14.9 (12.0-16.0) g/dl Hct 44 (35-47) % MCV 90 (80-97) fL MCH 30 (27-31) pg MCHC 34 (31-36) g/dl RDW 14 (10.5-15) % Plt Count 312 (150-450) 10^3/ul MPV 9 (7.4-10.4) um3 Neut % (Auto) 59.4 (38-83) % Lymph % (Auto) 27.2 (25-47) % [place] % (Auto) 9.9 H (1-9) % Eos % (Auto) 2.8 (0-6) % Baso % (Auto) 0.7 (0-2) % Absolute Neuts (auto) 4.1 (1.5-7.7) 10^3/ul Absolute Lymphs (auto) 1.9 (1.0-4.8) 10^3/ul Absolute Monos (auto) 0.7 (0-0.8) 10^3/ul Absolute Eos (auto) 0.2 (0-0.6) 10^3/ul Absolute Basos (auto) 0 (0-0.2) 10^3/ul Absolute Nucleated RBC 0 10^3/ul Nucleated RBC % 0 Sodium 137 (133-145) mmol/L Potassium 3.8 (3.5-5.0) mmol/L Chloride 102 (101-111) mmol/L Carbon Dioxide 24 (22-32) mmol/L Anion Gap 11 (2-11) mmol/L BUN 15 (6-24) mg/dL Creatinine 1.14 H (0.51-0.95) mg/dL Est GFR ( Amer) 63.9 (>60) Est GFR (Non-Af Amer) 49.7 (>60) BUN/Creatinine Ratio 13.2 (8-20) Glucose 78 (70-100) mg/dL Lactic Acid 1.0 (0.5-2.0) mmol/L Calcium 10.1 (8.6-10.3) mg/dL Magnesium 1.8 L (1.9-2.7) mg/dL Total Bilirubin 0.50 (0.2-1.0) mg/dL AST 33 (13-39) U/L ALT 38 (7-52) U/L Alkaline Phosphatase 61 (34-104) U/L Total Creatine Kinase 71 (10-223) U/L C-Reactive Protein 2.81 (< 5.00) mg/L Total Protein 7.9 (6.4-8.9) g/dL Albumin 4.7 (3.2-5.2) g/dL Globulin 3.2 (2-4) g/dL Albumin/Globulin Ratio 1.5 (1-3) Amylase 31 (29-103) U/L Lipase 20 (11.0-82.0) U/L Microbiology and Other Data: Microbiology 08/09/16 00:50 Stool Gross Appearance - Final Stool Stool Lactoferrin - Final Assess/Plan/Problems-Billing Assessment: 55 yo F h/o reported retinal artery occlusion, "coagulopathy" of unknown type on loevnox, h/o coumadin overdose in 2010, pseudoseizures, 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, ischemic colitis 12/2014 presents with 2 weeks waxing/waning abdominal pain associated with N/V, diarrhea - Patient Problems (1) Abdominal pain Comment: CT with concern for early appendicitis but so far inconsistent with presenting course Surgery does not plan on intervention Stool culture pending Advance to clear liquid diet Pain control GI consultation given mucous in stool and history of ischemic colitis In pt with history of conversion disorder (pseudoseizures and blindness) somatization remains on differential (2) Retinal artery occlusion Comment: Lovenox full dose (3) HTN (hypertension) Comment: losaratn and diltiazem
[2016-08-09] MEDS ORDERED: Enoxaparin(*) 100 MG/ML SYR SUBCUT SCH (17:00)
[2016-08-09] MEDS: Aspirin EC Low Dose* 81 MG TAB.EC PO SCH (20:21)
[2016-08-09] MEDS: Coenzyme Q10 (NF) ** ENTER STREGNTH IN LABEL DIRECTIONS PO SCH (20:52)
[2016-08-09] MEDS ORDERED: DILTIAZEM 120 MG PO SCH (21:00)
--- NOTE | 2016-08-09 23:46 | CONS ---
CONSULTATION REPORT: ADDENDUM: DATE OF SERVICE: 08/09/16 REASON FOR CONSULTATION: Abdominal pain with concern on CT scan for appendicitis. HISTORY OF PRESENT ILLNESS: Please see previous dictated note by CARMEN Pete. Ms. Nichole Boggs is a 55-year-old woman with multiple medical issues who over the past 3 weeks has developed migratory abdominal discomfort mainly in the upper abdomen including the epigastrium and left upper quadrant, radiated to her back associated with nausea without vomiting. She has not had any fevers , shakes, or chills, but she states she has had between 7 and 9 loose nonbloody bowel movements a day. This came on rather suddenly. She has had a history of colitis in the past by review of her records. She was seen in [facility] about 3 weeks ago. The pain was described more up into the chest and they did do a CT of her chest, which was unremarkable and laboratory workup was normal and she was discharged home at that time. She had seen Dr. Lopez from in the interim and due to her discomfort, she was sent to the emergency room on July 27. At that time, laboratory workup showed a normal white count as well as chemistry values including liver function tests, total bilirubin, and lactic acid. She underwent a CT scan of the abdomen and pelvis. I did review this image at that time. I did review the images of the study. It showed no acute findings and the patient is status post cholecystectomy as well as hysterectomy. Over the past 10 days, she has had persistent abdominal pain, mainly upper in the left abdomen radiating through to her back associated with the nausea as described above. She has had, once again, no fevers or chills. She has had little oral intake. Last night, she underwent a CT scan of her abdomen and pelvis which I did review. This shows little acute change; however, in this reading, mention was made of potential early acute appendicitis with some possible inflammatory change around the appendix. Also noted, however, was air within the appendix. Repeat white blood cell count yesterday on admission as well as today has been unremarkable as well as the remainder of her chemistry panel. She has had no fevers noted and she has not been tachycardic. PHYSICAL EXAMINATION: On exam today, her abdomen is morbidly obese. She is soft. She had diminished bowel sounds throughout. She has some tenderness in the left upper and epigastric area, some in the periumbilical area. There is no rebound, guarding, or peritoneal signs. I appreciate no significant right lower quadrant abdominal pain, although her exam is somewhat unreliable due to her size. IMPRESSION: Three weeks of abdominal pain radiating up into the chest and back associated with nausea and loose bowel movements. She has had normal laboratory workup over time and a CT scan of the chest 3 weeks ago was normal. I reviewed the last 2 CT scans that were done no more than 2 weeks apart. Mention is made in the CT scan done yesterday of some inflammation surrounding the appendix; however, I feel that this is really not significantly changed from the study done 2 weeks ago and there is air in the appendix done yesterday without enlargement of the appendiceal lumen or any fluid to suggest acute appendicitis and I appreciate no other acute findings. At this point, I do not believe that she has acute appendicitis and I would not recommend any surgical intervention or even treatment with IV antibiotics. With her symptoms of 3 weeks, I would suspect that a CAT scan would have some significant findings related to appendicitis and she would have an elevated white blood cell count. I discussed all of this with her. I suspect this may be perhaps more of a long - term viral-type illness, but I do not feel that surgical intervention is warranted at this time. Thank you for the consultation. We will follow her closely with you. CC: Dr. Hank Rhodes; [facility]; Dr. Sandee Gonzalez in [facility]* [id number]/[facility] #: [id number] MTDD
[2016-08-10] MEDS: HYDROmorphone* 1 MG/ML 1 ML SYR IV SLOW PU PRN ×2 (06:03→11:02)
[2016-08-10] MEDS: Levothyroxine TAB* 50 MCG TAB PO SCH (06:03)
[2016-08-10] MEDS: Ondansetron INJ* 2 MG/ML VIAL IV PRN ×3 (06:05→15:13)
[2016-08-10] MEDS: NS 0.9% 1000 ML* 1,000 ML IV SCH (06:14)
[2016-08-10 06:38] LABS: Hematocrit 37 % (35-47); Hemoglobin 12.2 g/dl (12.0-16.0); Mean Corpuscular HGB Conc 33 g/dl (31-36); Mean Corpuscular Hemoglobin 30 pg (27-31); Mean Corpuscular Volume 91 fL (80-97); Mean Platelet Volume 8 um3 (7.4-10.4); Red Blood Count 4.04 10^6/ul (4.0-5.4); Red Cell Distribution Width 14 % (10.5-15); White Blood Count 5.6 10^3/ul (3.5-10.8)
[2016-08-10 06:52] LABS: BUN/Creatinine Ratio 7.8 (8-20); Calcium 8.9 mg/dL (8.6-10.3); EGFR African American 83.9 (>60); EGFR Non-African American 65.2 (>60); Potassium 3.7 mmol/L (3.5-5.0)
[2016-08-10] MEDS: Omeprazole CAP* 20 MG PO SCH (07:51)
[2016-08-10] MEDS: oxyCODONE/Acetamin 5/325 MG* TAB PO PRN ×3 (07:51→23:22)
[2016-08-10] MEDS: Multivitamins/Minerals TAB PO SCH (07:51)
[2016-08-10] MEDS: Enoxaparin(*) 150 MG/ML 1 ML SYRINGE SUBCUT SCH (07:52)
--- NOTE | 2016-08-10 11:56 | PN ---
Subjective Date of Service: 08/10/16 Interval History: RN reports pt flushed own IV then removed it overnight. Pt denies doing this. She also thinks last dose of dilaudid did not work properly through this IV and would like another dose. Seen walking around unit then hunched over in pain after walking into room. Reports continued loose BMs, 4 this AM. Ate well. No emesis. Objective Active Medications: Aspirin (Aspirin Ec Low Dose*) 81 mg PO BEDTIME ANDREW Last Admin: 08/09/16 20:21 Dose: 81 mg Atorvastatin Calcium (Lipitor*) 20 mg PO BEDTIME ANDREW PRN Reason: Protocol Last Admin: 08/09/16 20:21 Dose: 20 mg Coenzyme Q10 (Coenzyme Q10 (Nf)) 1 cap PO BEDTIME ANDREW Last Admin: 08/09/16 20:52 Dose: Not Given Diltiazem HCl (Cardizem Cd Cap*) 180 mg PO BEDTIME ANDREW Last Admin: 08/09/16 20:19 Dose: 180 mg Enoxaparin Sodium (Lovenox(*)) 150 mg SUBCUT Q24HR ANDREW Last Admin: 08/10/16 07:52 Dose: 150 mg Gabapentin (Neurontin Cap(*)) 600 mg PO BEDTIME ANDREW Last Admin: 08/09/16 20:20 Dose: 600 mg Levothyroxine Sodium (Synthroid Tab*) 50 mcg PO 0600 ANDREW Last Admin: 08/10/16 06:03 Dose: 50 mcg Losartan Potassium (Cozaar Tab*) 50 mg PO BEDTIME ANDREW Last Admin: 08/09/16 20:21 Dose: 50 mg Multivitamins/Minerals (Theragran/Minerals Tab*) 1 tab PO DAILY ANDREW Last Admin: 08/10/16 07:51 Dose: 1 tab Omeprazole (Prilosec Cap*) 20 mg PO QAM ANDREW Last Admin: 08/10/16 07:51 Dose: 20 mg Ondansetron HCl (Zofran Inj*) 4 mg IV Q4H PRN PRN Reason: NAUSEA Last Admin: 08/10/16 11:02 Dose: 4 mg Ondansetron HCl (Zofran Odt Tab*) 4 mg PO Q6H PRN PRN Reason: VOMITING Last Admin: 08/09/16 05:51 Dose: 4 mg Oxycodone/Acetaminophen (Percocet 5/325 Tab*) 2 tab PO Q4H PRN PRN Reason: PAIN Last Admin: 08/10/16 07:51 Dose: 2 tab Prochlorperazine Edisylate (Compazine Inj*) 5 mg IV Q6H PRN PRN Reason: NAUSEA/VOMITING Last Admin: 08/09/16 00:54 Dose: 5 mg Vital Signs 08/09/16 08/09/16 08/09/16 12:28 13:28 15:32 Temperature 98.0 F Pulse Rate 87 Respiratory 18 17 18 Rate Blood Pressure 153/87 (mmHg) O2 Sat by Pulse 97 Oximetry 08/09/16 08/09/16 08/09/16 17:35 18:35 20:00 Temperature Pulse Rate Respiratory 18 16 20 Rate Blood Pressure (mmHg) O2 Sat by Pulse Oximetry 08/09/16 08/09/16 08/09/16 20:20 22:20 23:17 Temperature 98.2 F Pulse Rate 91 Respiratory 18 18 16 Rate Blood Pressure 148/83 (mmHg) O2 Sat by Pulse 97 Oximetry 08/09/16 08/10/16 08/10/16 23:30 00:30 06:03 Temperature Pulse Rate Respiratory 18 20 18 Rate Blood Pressure (mmHg) O2 Sat by Pulse Oximetry 08/10/16 08/10/16 07:51 11:02 Temperature Pulse Rate Respiratory 16 20 Rate Blood Pressure (mmHg) O2 Sat by Pulse Oximetry Oxygen Devices in Use Now: None Appearance: NAD Eyes: No Scleral Icterus, PERRLA Ears/Nose/Mouth/Throat: NL Teeth, Lips, Gums, Clear Oropharnyx, Mucous Membranes Moist Neck: NL Appearance and Movements; NL JVP, Trachea Midline Respiratory: Symmetrical Chest Expansion and Respiratory Effort, Clear to Auscultation Cardiovascular: NL Sounds; No Murmurs; No JVD, RRR Abdominal: No Hepatosplenomegaly, - - soft, ND, +bs, mild TTP RUQ Lymphatic: No Cervical Adenopathy Extremities: No Edema Skin: No Rash or Ulcers Neurological: Alert and Oriented x 3 Result Diagrams: 08/10/16 05:43 08/10/16 05:43 Additional Lab and Data: Lab Results 08/08/16 08/08/16 08/08/16 Range/Units 13:55 13:55 13:55 WBC 6.9 (3.5-10.8) 10^3/ul RBC 4.92 (4.0-5.4) 10^6/ul Hgb 14.9 (12.0-16.0) g/dl Hct 44 (35-47) % MCV 90 (80-97) fL MCH 30 (27-31) pg MCHC 34 (31-36) g/dl RDW 14 (10.5-15) % Plt Count 312 (150-450) 10^3/ul MPV 9 (7.4-10.4) um3 Neut % (Auto) 59.4 (38-83) % Lymph % (Auto) 27.2 (25-47) % Hooker % (Auto) 9.9 H (1-9) % Eos % (Auto) 2.8 (0-6) % Baso % (Auto) 0.7 (0-2) % Absolute Neuts (auto) 4.1 (1.5-7.7) 10^3/ul Absolute Lymphs (auto) 1.9 (1.0-4.8) 10^3/ul Absolute Monos (auto) 0.7 (0-0.8) 10^3/ul Absolute Eos (auto) 0.2 (0-0.6) 10^3/ul Absolute Basos (auto) 0 (0-0.2) 10^3/ul Absolute Nucleated RBC 0 10^3/ul Nucleated RBC % 0 Sodium 137 (133-145) mmol/L Potassium 3.8 (3.5-5.0) mmol/L Chloride 102 (101-111) mmol/L Carbon Dioxide 24 (22-32) mmol/L Anion Gap 11 (2-11) mmol/L BUN 15 (6-24) mg/dL Creatinine 1.14 H (0.51-0.95) mg/dL Est GFR ( Amer) 63.9 (>60) Est GFR (Non-Af Amer) 49.7 (>60) BUN/Creatinine Ratio 13.2 (8-20) Glucose 78 (70-100) mg/dL Lactic Acid 1.0 (0.5-2.0) mmol/L Calcium 10.1 (8.6-10.3) mg/dL Magnesium 1.8 L (1.9-2.7) mg/dL Total Bilirubin 0.50 (0.2-1.0) mg/dL AST 33 (13-39) U/L ALT 38 (7-52) U/L Alkaline Phosphatase 61 (34-104) U/L Total Creatine Kinase 71 (10-223) U/L C-Reactive Protein 2.81 (< 5.00) mg/L Total Protein 7.9 (6.4-8.9) g/dL Albumin 4.7 (3.2-5.2) g/dL Globulin 3.2 (2-4) g/dL Albumin/Globulin Ratio 1.5 (1-3) Amylase 31 (29-103) U/L Lipase 20 (11.0-82.0) U/L Microbiology and Other Data: Microbiology 08/09/16 00:50 Stool Gross Appearance - Final Stool Stool Lactoferrin - Final Assess/Plan/Problems-Billing Assessment: 55 yo F h/o reported retinal artery occlusion, "coagulopathy" of unknown type on lovenox, h/o coumadin overdose in 2010, pseudoseizures, 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 diff added per surgery Stool culture negative including fevcal lactoferrin Advance to GI diet Pain control. d/c IV meds now that she is tolerating oral GI consultation given mucous in stool and history of ischemic colitis In pt with history of conversion disorder (pseudoseizures and blindness) somatization remains on differential (2) Retinal artery occlusion Comment: Lovenox full dose (3) HTN (hypertension) Comment: losaratn and diltiazem
--- NOTE | 2016-08-10 14:10 | PN ---
Progress Note - Progress Note Note: Surgery Progress: (patient seen ~10:30 this a.m.) S: States she is still having pain, variable in location, seemingly assoc w/ eating, and she reports increased diarrhea following advancement of diet. This seems to occur about 15 min after eating. She admits to nausea, but no vomiting. O: Vital Signs - 8 hr 08/10/16 08/10/16 08/10/16 07:30 07:51 11:02 Temperature 97.8 F Pulse Rate 79 Respiratory 16 16 20 Rate Blood Pressure 132/57 (mmHg) O2 Sat by Pulse 98 Oximetry Intake and Output Last 24 Hours 08/08/16 08/09/16 08/10/16 08/11/16 06:59 06:59 06:59 06:59 Intake Total 1756 680 350 Balance 1756 680 350 Weight 223 lb 1.6 oz Intake: IV Fluids 1746 300 NS (0.9%) 733 300 IVPB 10 0 NS (0.9%) 0 Oral 380 350 Other: Estimated Void Small Medium Date of Last Bowel 08/07/16 Movement # Bowel Movements 2 6 Estimated Stool Amount Small Medium # Voids 1 5 Heart: reg LUngs: clear ant Abd: +BS; obese; soft; mild tenderness both upper quadrants, R>L, with referred tenderness to RUQ when palpating RLQ. There is no guarding or rigidity, within limits of exam based on body habitus. Labs: Laboratory Tests 08/10/16 05:43 WBC 5.6 Hgb 12.2 Neut % (Auto) 55.9 P3: normal Stool tests neg (incl occult blood), though it does not appear that C diff was ordered (granted, patient has not been treated with abx recently, though does take omeprazole chronically) A: abd pain, w/ diarrhea P: there do not appear to be any surgically related reasons for her symptoms; I did order a stool for C diff; would also consider GI consult, especially given her history of ischemic colitis. We will continue to follow. Case discussed w/ Dr. Jernigan.
[2016-08-10] MEDS: PROCHLORPERAZINE INJ 5 MG/ML 2 ML VIAL IV PRN ×2 (17:36→23:14)
[2016-08-10] MEDS: Losartan TAB* 25 MG PO SCH (23:20)
[2016-08-10] MEDS: Diltiazem CD CAP* 180 MG PO SCH (23:21)
[2016-08-10] MEDS: Atorvastatin* 20 MG TAB PO SCH (23:21)
[2016-08-10] MEDS: Gabapentin CAP(*) 300 MG PO SCH (23:23)
[2016-08-10] MEDS: Aspirin EC Low Dose* 81 MG TAB.EC PO SCH (23:24)
[2016-08-10] MEDS: Coenzyme Q10 (NF) ** ENTER STREGNTH IN LABEL DIRECTIONS PO SCH (23:25)
[2016-08-11] MEDS: CMCS: Pantoprazole TAB (NF) 40 MG TAB PO SCH ×2 (01:29→08:58)
[2016-08-11] MEDS ORDERED: Zolpidem TAB* 5 MG PO PRN (01:38)
[2016-08-11] MEDS: Levothyroxine TAB* 50 MCG TAB PO SCH (06:31)
[2016-08-11 07:28] VITALS: BP 133/70
[2016-08-11] MEDS: Enoxaparin(*) 150 MG/ML 1 ML SYRINGE SUBCUT SCH (08:56)
[2016-08-11] MEDS: Ondansetron ODT TAB* 4 MG PO PRN (08:58)
[2016-08-11] MEDS: Multivitamins/Minerals TAB PO SCH (08:58)
--- NOTE | 2016-08-11 09:10 | CONS ---
GASTROENTEROLOGY CONSULTATION: DATE OF CONSULT: 08/10/16. CONSULTING PHYSICIAN: Justino De La Cruz MD REASON FOR CONSULTATION: Chronic left upper quadrant and variable abdominal pain. HISTORY OF PRESENT ILLNESS: This 55-year-old woman with a complex past history has had multiple abdominal surgeries. She is followed by Dr. Gonzalez, and is taking Lovenox daily for apparently unspecified thrombophilic tendency. Several weeks ago, she was seen by Dr. Lopez as an outpatient with complaints of abdominal pain and vomiting. Because of the flare, she feels that he wanted her to go to the emergency room and have a CAT scan. She did this and there were no findings on 07/27/16. She also went to [facility] and had a workup there a few days later; this was also nondiagnostic. She called me three days ago over the weekend and said that she had been really sick on 08/06/16 with vomiting and it was bad. She said there was pain in the chest with nausea, vomiting and diarrhea. There was no fever. She talked about, how over basically 2.5 to 3 weeks, she has put herself on clear liquids or crackers periodically and just could not eat. She states the pain was predominantly on the left side later in the conversation. Although there were no alarm findings, it was known that she had had a history of ischemic colitis and carried a diagnosis of a retinal vascular occlusion from 2007, and thus was directed to the emergency room. She was seen there by Dr. Michael who found no particular alarm features to the history, and her abdomen was soft with normal bowel sounds. A repeat CT scan questioned the appendiceal area, though, of course, her complaint was in the left upper quadrant. Beatriz, the nurse that her during the day reports she ate 100% of her breakfast and 100% of her lunch, but no dinner. At 8:15, she was asleep. With some difficulty arousing her, she had gum in her mouth. The nurse had observed that, although diarrhea was a frequent complaint, none had been documented. There was also no documented vomiting. PAST MEDICAL HISTORY: 1. Status post cholecystectomy. 2. Status post ERCP and sphincterotomy. 3. Status post hysterectomy. 4. Status post ischemic colitis, December 2014. 5. Chronic pain syndrome. 6. Depression. SOCIAL HISTORY: She is . She has a grandchild. 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 REVIEW OF SYSTEMS: No history of arrhythmias, syncope, TB, hemoptysis, acute hepatitis (15 ALTs over the last 7 years all normal), renal stones. She has had several upper endoscopies, most recently 2010. She has been maintained on omeprazole for quite some time. PHYSICAL EXAM: After arousal, she is a healthy-appearing though morbidly-obese woman with a large abdominal panniculus. She is afebrile with temperature under 99 the entire 48 hours. Pulses vary between 68 and 100. She appears in no distress, and is quite engaging and pleasant in conversation. She indicates the pain is in the right upper quadrant, and then comments that it moves around. HEENT exam is unremarkable. She has no adenopathy. Lungs are clear. Heart sounds are regular. The abdomen has a very large, symmetric panniculus. No hernias appreciated, though the exam is limited. Bowel sounds are quite normal. Rectal deferred. Extremities are symmetric without any erythema. DIAGNOSTIC STUDIES/LAB DATA: Today - white count 5.6, hemoglobin 12.2, hematocrit 37, platelets 250, eos 3.2%. Sodium 139. LFTs are normal. Albumin 4.7. The most recent CRP 2.81 two days ago. IMPRESSION: This woman with a very complex past medical history and frequent hospitalization complains of abdominal pain which has predominantly been in the left upper quadrant on most recitations of the history, though at other time she will talk about the right upper quadrant or right lower quadrant. It seems unlikely there is a serious underlying disorder, and it also seems unlikely there is just a single etiology for all of her pains. The most likely cause for a treatable entity in the left upper quadrant would be some persisting uncontrolled reflux. This is not likely to be the cause of all of her complaints, and actually may not even be operating; but, to gain her trust, omeprazole will be stopped and Protonix 40 mg will be given, a dose tonight and one in the morning. Sorbitol intolerance is a possibility as are a variety of self-limited illnesses. In particular, she is complained of diarrhea although her stool is heme negative and C. diff negative; there have been no recent antibiotics, and the nurses have been unable to document diarrhea at this time. At this time, no further diagnostic studies seem high yield and will not be ordered. [id number]/[facility] #: [id number] [facility] NOBLE HOSPITALNarciso
--- NOTE | 2016-08-11 20:07 | DS ---
DISCHARGE SUMMARY: DATE OF ADMISSION: 08/08/16 DATE OF DISCHARGE: 08/11/16 PRIMARY CARE PROVIDER: Dr. Sandee Gonzalez. NEUROPHYSIOLOGIST: Dr. Lopez. PRIMARY DIAGNOSIS: Abdominal pain. SECONDARY DIAGNOSES: Include: 1. History of retinal artery occlusion, on therapeutic Lovenox as an outpatient daily. 2. History of hypertension. 3. History of depression and anxiety. 4. History of migraines. 5. History of ischemic colitis. 6. History of chronic back pain. HISTORY OF PRESENT ILLNESS AND HOSPITAL COURSE: This is a 55-year-old woman with a past medical history as outlined in the history of present illness on the day of admission, who presented to the hospital with abdominal pain. Of note, the patient has been hospitalized with pseudoseizures, as well as left eye blindness, was thought to be in the setting of conversion disorder. Multiple studies were undertaken to evaluate etiologies of the patient's abdominal pain, which all were negative. During the course of the patient's hospital stay, she indicated she was having diarrhea, which was unable to be measured. When attempted to test it for C. diff., the patient who was reporting multiple bowel movements per day ceased to have any diarrhea. C. diff was checked on bowel movement from presentation. Of note, the patient's indicated to care provider's team that the patient may have an opioid addiction and he was hesitant about her being discharged with any pain medications. The patient continued to complain of abdominal pain; however, tolerated all of her food. She was seen by Dr. Rhodes from Gastroenterology who changed her omeprazole to Protonix after which the patient reported that all of her problems, including diarrhea and abdominal pain, resolved. I do not think this is an organic problem. I think it is partly conversion or malingering for opioids, unable to differentiate either at this time. Additional abnormal behavior during the hospital stay included flushing her own IV and then removing it when she said it did not work, as well as interact well. On the day of discharge, the patient was tolerating a regular diet, ambulating around the the unit, no longer requiring pain medications. MEDICATIONS ON DISCHARGE: Include: 1. Multivitamin 1 tab daily. 2. Co-enzyme Q10, 400 mg at bedtime. 3. Crestor 10 mg at bedtime. 4. Losartan 50 mg at bedtime. 5. Gabapentin 600 mg at bedtime. 6. Lovenox 150 mg daily. 7. Diltiazem CD 184 mg at bedtime. 8. Aspirin 81 mg at bedtime. 9. Synthroid 50 mcg daily. 10. Ondansetron ODT 4 mg every 6 hours as needed for nausea. 11. Protonix 40 mg daily. DISCHARGE INSTRUCTIONS: At followup, please: 1. Continue to evaluate underlying psychiatric comorbidities which may be contributing to somatization. 2. No specific labs or vitals that need followup. Reasons to return to the hospital include, but not limited to, recurrent or worsening symptoms, including abdominal pain, diarrhea, bright red blood per rectum, chest pain, shortness of breath, nausea, vomiting, lightheadedness, fevers, chills, night sweats, inability to obtain or tolerate medications were discussed with the patient, she acknowledged understanding. TIME SPENT: Greater than 60 minutes were spent on discharge of this patient, greater than half was spent [id number] with the patient. CC: Dr. Sandee Gonzalez; Dr. Lopez* [id number]/[facility] #: [id number] [facility]
== END 2016-08-11 15:35 | disposition home or self-care (01) | DRG 394 ==
LOC: ED 13:22 → MED 18:56
PROVIDERS: ADMIT Internal Medicine; ATTEND Internal Medicine
DX: K35.80 Unspecified acute appendicitis (principal); H34.9 Unspecified retinal vascular occlusion; D68.59 Other primary thrombophilia; Z68.41 Body mass index [BMI] 40.0-44.9, adult; I10 Essential (primary) hypertension; F32.9 Major depressive disorder, single episode, unspecified; F41.9 Anxiety disorder, unspecified; G43.909 Migraine, unspecified, not intractable, without status migrainosus; K21.9 Gastro-esophageal reflux disease without esophagitis; E03.9 Hypothyroidism, unspecified; G89.29 Other chronic pain; M54.9 Dorsalgia, unspecified; E66.9 Obesity, unspecified; Z86.711 Personal history of pulmonary embolism; Z88.2 Allergy status to sulfonamides; Z91.030 Bee allergy status; Z88.3 Allergy status to other anti-infective agents; Z91.018 Allergy to other foods; Z79.01 Long term (current) use of anticoagulants; Z79.82 Long term (current) use of aspirin
CPT/HCPCS: 36415; 74177; 80048; 80053; 81003; 81015; 82150; 82272; 82550; 83605; 83630; 83690; 83735; 85025; 85379; 86140; 87045; 87046; 87493; 87899; 93005; A9270-GY; J0780; J1170; J1650; J2270; J2405; Q9967

== ENCOUNTER 2016-08-25 12:58 | Emergency (ER) | payer OTHER, MEDICARE ==
[2016-08-25] MEDS ORDERED: HYDROmorphone* 2 MG/ML 1 ML SYR IV SLOW PU ONE (13:46)
[2016-08-25] MEDS ORDERED: Ondansetron INJ* 2 MG/ML VIAL IV ONE (13:46)
[2016-08-25 13:55] LABS: Hematocrit 44 % (35-47); Hemoglobin 14.7 g/dl (12.0-16.0); Mean Corpuscular HGB Conc 33 g/dl (31-36); Mean Corpuscular Hemoglobin 30 pg (27-31); Mean Corpuscular Volume 91 fL (80-97); Mean Platelet Volume 8 um3 (7.4-10.4); Red Blood Count 4.88 10^6/ul (4.0-5.4); Red Cell Distribution Width 14 % (10.5-15); White Blood Count 7.8 10^3/ul (3.5-10.8)
[2016-08-25 14:13] LABS: Albumin 4.5 g/dL (3.2-5.2); BUN/Creatinine Ratio 16.9 (8-20); C Reactive Protein 3.84 mg/L (< 5.00); Calcium 9.7 mg/dL (8.6-10.3); EGFR Non-African American 66.1 (>60); Potassium 4.3 mmol/L (3.5-5.0); Total Bilirubin 0.3 mg/dL (0.2-1.0); Total Protein 7.5 g/dL (6.4-8.9)
[2016-08-25 14:25] LABS: Urine Bilirubin Negative (Negative); Urine Glucose Negative (Negative); Urine Nitrite Negative (Negative)
[2016-08-25] MEDS ORDERED: Metoclopramide IV* 5 MG/ML 2 ML VIAL IV ONE (14:31)
[2016-08-25] MEDS ORDERED: Morphine INJ* 4 MG/ML 1 ML SYRINGE IV ONE (14:32)
[2016-08-25] MEDS ORDERED: Lidocaine 2% VISCOUS* 15 ML UDC PO ONE (14:56)
[2016-08-25] MEDS ORDERED: Al Hydrox/Mg Hydrox/Simet LIQ* 30 ML UDC PO ONE (14:56)
[2016-08-25 16:17] VITALS: BP 125/69
--- NOTE | 2016-08-25 22:27 | ED ---
manuel Mckay Timothy, scribed for Moreno Arredondo MD on 08/25/16 at 1336 . Abdominal Pain/Female - HPI Summary HPI Summary: Nichole Boggs is a 55 yo female presenting to [facility] with 8/10 right abd pain , continuing for the past 5-6 days, beginning over a month ago. She states the pain is sharp and radiates to her mid-back and right shoulder, sometimes in the chest. She recently had her gallbladder removed. She is also complaining of emesis 1x and diarrhea 6-6x today. Her pain increased today after she was given pineapple juice for MRCP at [facility]. She states her pain generally increases after she eats or drinks. Her pain is relieved to an extent by sitting on her knees bent over in bed. She has been treated with tylenol [employer] with some relief. Upon administration of morphine she is experiencing more relief. Her MHx includes benign tumor of the thyroid, angina, CAD, cardiac catheterization, anticoagulant therapy, HLD, HTN, embolism, CVA 2008, PE 2x most recently 2006, seizures, GERD, colonoscopy 2013, cholecystectomy, kidney stones 4x, arthrtitis , osteoperosis, PTSD, depression, anxiety. Her Gi Doctors are Dr.'s Lopez and Carmelo, with whom she has an appointment next week. - History of Current Complaint Chief Complaint: EDAbdPain Stated Complaint: ABD PAIN Hx Obtained From: Patient Onset/Duration: Gradual Onset, Lasting Days, Still Present Timing: Constant Severity Initially: Moderate Severity Currently: Moderate Pain Intensity: 8 Pain Scale Used: 0-10 Numeric Location: Other - right side Radiates: Yes Radiates to: Back - middle, Other - right shoulder Character: Sharp Alleviating Factor(s): Position - sitting on knees bent over Associated Signs and Symptoms: Positive: Back Pain, Nausea, Vomiting, Diarrhea Allergies/Adverse Reactions: Allergies Allergy/AdvReac Type Severity Reaction Status Date / Time Bee Venom Allergy Severe Anaphylatic Verified 08/08/16 21:15 Shock Hydroxyzine [From Atarax] Allergy Mild Anxiety Verified 08/08/16 21:15 Amitriptyline Allergy See Comment Verified 08/08/16 21:15 CI Pigment Blue 63 Allergy seizure Verified 08/08/16 21:15 [From Cymbalta] Ciprofloxacin [From Cipro] Allergy Itching Verified 03/19/17 21:15 Duloxetine [From Cymbalta] Allergy seizure Verified 08/08/16 21:15 Morphine Allergy Difficulty Verified 08/08/16 21:15 Breathing Sulfa Antibiotics Allergy Unknown Verified 08/08/16 21:15 Reaction Details Amoxicillin [From Augmentin] AdvReac Intermediate NAUSEA/VOMI Verified 08/08/16 21:15 T Clavulanic Acid AdvReac Intermediate NAUSEA/VOMI Verified 08/08/16 21:15 [From Augmentin] T almonds Allergy See Comment Uncoded 08/08/16 21:15 Home Medications: Home Medications Pantoprazole TAB (NF) [Protonix TAB (NF)] 40 mg PO BID 08/25/16 [History Confirmed 08/25/16] PMH/Surg Hx/FS Hx/Imm Hx Endocrine/Hematology History: Reports: Hx Anticoagulant Therapy, Hx Blood Disorders, Hx Thyroid Disease - benign tumor, Other Endocrine/Hematological Disorders - pt states blood disorder but unable to tell what its called Denies: Hx Diabetes, Hx Anemia Cardiovascular History: Reports: Hx Angina, Hx Coronary Artery Disease, Hx Embolism, Hx Hypercholesterolemia, Hx Hypertension, Other Cardiovascular Problems/Disorders - HX OF STROKE 2008 HX OF PE X2 MOST RECENT 2006 Denies: Hx Congestive Heart Failure, Hx Myocardial Infarction, Hx Pacemaker/ ICD, Hx Valvular Heart Disease Respiratory History: Reports: Hx Pneumonia, Hx Pulmonary Embolism, Hx Seasonal Allergies Denies: Hx Asthma, Hx Chronic Obstructive Pulmonary Disease (COPD) GI History: Reports: 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., Hx Gastroesophageal Reflux Disease, Hx Gastrointestinal Bleed, Hx Hiatal Hernia, Other GI Disorders - Esophageal spasms Denies: Hx Jaundice History: Reports: Hx Kidney Stones - 4x Denies: Hx Dialysis, Hx Renal Disease Musculoskeletal History: Reports: Hx Arthritis, Hx Back Problems, Hx Bursitis, Hx Orthopedic Injury, Hx Osteoporosis Sensory History: Reports: Hx Contacts or Glasses, Hx Legally Blind - L eye, Hx Vision Problem - blind in left eye Denies: Hx Hearing Aid Opthamlomology History: Reports: Hx Contacts or Glasses, Hx Legally Blind - L eye, Hx Vision Problem - blind in left eye Neurological History: Reports: Hx CVA, Hx Headaches, Hx Migraine, Hx Seizures - 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 Hx Tobacco Use: No Smoking Status (MU): Never Smoked Tobacco Review of Systems Constitutional: Negative Negative: Fever, Chills Eyes: Negative Negative: Other - eye redness ENT: Negative Negative: Sore Throat Positive: Chest Pain Respiratory: Negative Negative: Shortness Of Breath, Cough Positive: Abdominal Pain, Vomiting, Diarrhea, Nausea Genitourinary: Negative Negative: dysuria, hematuria Musculoskeletal: Negative Negative: Myalgia, Edema - leg Skin: Negative Negative: Rash Neurological: Negative Psychological: Normal All Other Systems Reviewed And Are Negative: Yes Physical Exam - Summary Physical Exam Summary: Constitutional: Well-developed, Well-nourished, Alert. (-) Distressed Skin: Warm, Dry HENT: Normocephalic; Atraumatic Eyes: Conjunctiva normal Neck: Musculoskeletal ROM normal neck. (-) JVD, (-) Stridor, (-) Tracheal deviation Cardio: Rhythm regular, rate normal, Heart sounds normal; Intact distal pulses; The pedal pulses are 2+ and symmetric. Radial pulses are 2+ and symmetric. (-) Murmur Pulmonary/Chest wall: Effort normal. (-) Respiratory distress, (-) Wheezes, (-) Rales Abd: Soft, (+) exquisite tenderness RUQ palpation of which exactly reproduces her pain, (-) Distension, (-) Guarding, (-) Rebound Musculoskeletal: (-) Edema Lymph: (-) Cervical adenopathy Neuro: Alert, Oriented x3 Psych: Mood and affect Normal Triage Information Reviewed: Yes Vital Signs On Initial Exam: Initial Vitals Temp Pulse Resp BP Pulse Ox 96.7 F 72 18 159/79 100 08/25/16 12:59 08/25/16 12:59 08/25/16 12:59 08/25/16 12:59 08/25/16 12:59 Vital Signs Reviewed: Yes Diagnostics - Vital Signs Vital Signs Temp Pulse Resp BP Pulse Ox 08/25/16 13:09 97.8 F 76 20 151/87 97 08/25/16 12:59 96.7 F 72 18 159/79 100 - Laboratory Result Diagrams: 08/25/16 13:45 08/25/16 13:45 Lab Statement: Any lab studies that have been ordered have been reviewed, and results considered in the medical decision making process. - EKG 1359 Cardiac Rate: NL - 77 BPM EKG Interpretation: NSR @ 77 BPM, no STEMI, biphasic T-waves in V3. Abdominal Pain Fem Course/Dx - Course Course Of Treatment: Nichole Boggs is a 55 yo female with continued 8/10 right sided abd pain radiating to her mid back and right shoulder. In the ED she was administered reglan, zofran to prevent vomiting, and morphine for pain control. Her EKG showed no STEMI and biphasic T-wave in V3. After clinical examination and review of her lab work and EKG, she will be discharged home with epigastric pain and appropriate instructions. - Diagnoses Provider Diagnoses: Epigastric pain Discharge - Discharge Plan Condition: Stable Disposition: HOME Patient Education Materials: Epigastric Pain (ED) Forms: *Work Release Referrals: Sandee Gonzalez MD [Primary Care Provider] - Hank Rhodes MD [Medical Doctor] - 3 Days Additional Instructions: Please follow up with Dr. Rhodes regarding your visit to the emergency department today. Return to the emergency department with any new or recurring symptoms. The documentation as recorded by the manuel smith Timothy accurately reflects the service I personally performed and the decisions made by , Moreno Arredondo MD.
== END 2016-08-25 17:15 | disposition home or self-care (01) ==
LOC: ED 12:58
DX: R10.13 Epigastric pain (principal); M54.9 Dorsalgia, unspecified; R11.2 Nausea with vomiting, unspecified; R19.7 Diarrhea, unspecified
CPT/HCPCS: 36415; 80053; 81003; 83605; 83690; 85025; 86140; 93005; 96374; 96375; 99282; A9270-GY; J2270; J2405

== ENCOUNTER 2016-11-04 14:38 | Emergency (ER) | payer OTHER, MEDICARE ==
--- NOTE | 2016-11-04 16:10 | RAD ---
HISTORY: Trauma, loss of consciousness, headache COMPARISONS: January 16, 2016 TECHNIQUE: Multiple contiguous axial CT scans were obtained of the head without intravenous contrast. FINDINGS: HEMORRHAGE/INFARCT: There is no hemorrhage or acute infarct. MASSES/SHIFT: There is no mass or shift. EXTRA-AXIAL SPACES: There are no extra-axial fluid collections. SULCI AND VENTRICLES: The sulci and ventricles are normal in size and position for the patient's stated age. CEREBRUM: There are no focal parenchymal abnormalities. BRAINSTEM: There are no focal parenchymal abnormalities. CEREBELLUM: There are no focal parenchymal abnormalities. VESSELS: The vessels are grossly normal. PARANASAL SINUSES: The paranasal sinuses are clear. ORBITS: The orbits are unremarkable. BONES AND SOFT TISSUE: No bone or soft tissue abnormalities are noted. OTHER: None IMPRESSION: NO ACUTE INTRACRANIAL PATHOLOGY.
--- NOTE | 2016-11-04 16:14 | RAD ---
HISTORY: Trauma, fall COMPARISONS: September 21, 2011 TECHNIQUE: Multiple contiguous axial CT scans were obtained of the cervical spine without intravenous contrast, with coronal and sagittal multiplanar reformations. FINDINGS: BRAIN: The visualized brain is unremarkable CENTRAL CANAL: Evaluation of the central canal is limited on CT technique, however there is no obvious canalicular mass or epidural hemorrhage. ALIGNMENT: There is straightening of the normal cervical lordosis. VERTEBRAL BODIES: The odontoid process is intact. The atlantoaxial intervals are symmetric. The vertebral bodies are normal in attenuation, without fracture. JOINTS: There is mild diffuse uncovertebral and facet osteoporosis. There is osteoarthritis of the atlantoaxial articulation. MUSCULATURE: Unremarkable INTERVERTEBRAL DISCS: There is diffuse loss of intervertebral disc height. AXIAL IMAGES: There is multilevel degenerative disc disease and osteoarthritis, without osseous neural foraminal narrowing or central canal stenosis. SOFT TISSUES: The visualized soft tissues of the neck are unremarkable. The prevertebral fat stripe is preserved. OTHER: None. IMPRESSION: DEGENERATIVE DISC DISEASE AND OSTEOARTHRITIS. NO ACUTE OSSEOUS INJURY TO THE CERVICAL SPINE
[2016-11-04] MEDS ORDERED: oxyCODONE/Acetamin 5/325 MG* TAB PO ONE (16:22)
[2016-11-04 16:52] VITALS: BP 130/62
--- NOTE | 2016-11-04 17:24 | RAD ---
HISTORY: Right shoulder trauma COMPARISONS: July 16, 2003 VIEWS: 4, Frontal internal rotation, external rotation, outlet, and axillary views of the right shoulder FINDINGS: BONE DENSITY: Normal. BONES: There is no displaced fracture. JOINTS: There is no arthropathy. ALIGNMENT: There is no dislocation. SOFT TISSUES: Unremarkable. OTHER FINDINGS: None. IMPRESSION: NO ACUTE OSSEOUS INJURY. IF SYMPTOMS PERSIST, RECOMMEND REPEAT IMAGING.
--- NOTE | 2016-11-05 18:09 | ED ---
Meg Mckay Edward, scribed for Darryl Graves MD on 11/04/16 at 1518 . Adult Trauma - HPI Summary HPI Summary: 55 y/o female presents to ED s/p large ceramic bowl falling on her head. Patient c/o severe throbbing head and right shoulder pain, neck and upper back pain, nausea and dizziness. Patient denies vomiting, blurred vision, CP, and palpitations. Patient estimated that the bowl was over 20 lbs and stated that it fell on the top left region of her forehead. Patient had a syncopal episode but does not know for how long, from which she woke up on the floor. - History of Current Complaint Chief Complaint: EDHeadInjury Stated Complaint: HEAD INJURY Time Seen by Provider: 11/04/16 15:02 Hx Obtained From: Patient Hx Last Menstrual Period: N/A Mechanism of Injury: Blunt Trauma Loss of Consciousness: brief (seconds) - Woke up on floor Impact: Frontal - Ceramic bowl fell on forehead/top of head Onset of Pain: Immediate Onset Severity: Moderate Current Severity: Moderate Pain Intensity: 5 Pain Scale Used: 0-10 Numeric Location: Head - Forehead and top of head, Neck, Back - Upper back and right shoulder Associated Signs & Symptoms: Positive: Loss of Consciousness, Other: - Dizziness. No palpitations, blurred visions. Negative: Chest Pain, Nausea/ Vomiting - Additional Pertinent History Primary Care Physician: [id number] - Allergy/Home Medications Allergies/Adverse Reactions: Allergies Allergy/AdvReac Type Severity Reaction Status Date / Time Bee Venom Allergy Severe Anaphylatic Verified 08/08/16 21:15 Shock Hydroxyzine [From Atarax] Allergy Mild Anxiety Verified 08/08/16 21:15 Amitriptyline Allergy See Comment Verified 08/08/16 21:15 CI Pigment Blue 63 Allergy seizure Verified 08/08/16 21:15 [From Cymbalta] Ciprofloxacin [From Cipro] Allergy Itching Verified 08/08/16 21:15 Duloxetine [From Cymbalta] Allergy seizure Verified 08/08/16 21:15 Morphine Allergy Difficulty Verified 08/08/16 21:15 Breathing Sulfa Antibiotics Allergy Unknown Verified 08/08/16 21:15 Reaction Details Amoxicillin [From Augmentin] AdvReac Intermediate NAUSEA/VOMI Verified 08/08/16 21:15 T Clavulanic Acid AdvReac Intermediate NAUSEA/VOMI Verified 08/08/16 21:15 [From Augmentin] T almonds Allergy See Comment Uncoded 08/08/16 21:15 PMH/Surg Hx/FS Hx/Imm Hx Previously Healthy: No Endocrine/Hematology History: Reports: Hx Anticoagulant Therapy, Hx Blood Disorders, Hx Thyroid Disease - benign tumor, Other Endocrine/Hematological Disorders - pt states blood disorder but unable to tell what its called Denies: Hx Diabetes, Hx Anemia Cardiovascular History: Reports: Hx Angina, Hx Coronary Artery Disease, Hx Embolism, Hx Hypercholesterolemia, Hx Hypertension, Other Cardiovascular Problems/Disorders - HX OF STROKE 2008 HX OF PE X2 MOST RECENT 2006 Denies: Hx Congestive Heart Failure, Hx Myocardial Infarction, Hx Pacemaker/ ICD, Hx Valvular Heart Disease Respiratory History: Reports: Hx Pneumonia, Hx Pulmonary Embolism, Hx Seasonal Allergies Denies: Hx Asthma, Hx Chronic Obstructive Pulmonary Disease (COPD) GI History: Reports: 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., Hx Gastroesophageal Reflux Disease, Hx Gastrointestinal Bleed, Hx Hiatal Hernia, Other GI Disorders - Esophageal spasms Denies: Hx Jaundice History: Reports: Hx Kidney Stones - 4x Denies: Hx Dialysis, Hx Renal Disease Musculoskeletal History: Reports: Hx Arthritis, Hx Back Problems, Hx Bursitis, Hx Orthopedic Injury, Hx Osteoporosis Sensory History: Reports: Hx Contacts or Glasses, Hx Legally Blind - L eye, Hx Vision Problem - blind in left eye Denies: Hx Hearing Aid Opthamlomology History: Reports: Hx Contacts or Glasses, Hx Legally Blind - L eye, Hx Vision Problem - blind in left eye Neurological History: Reports: Hx CVA, Hx Headaches, Hx Migraine, Hx Seizures - 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 ABDOMINAL LAPROSCOPIC Hx Anesthesia Reactions: No - Immunization History Date of Tetanus Vaccine: PT STATES UNSURE Date of Influenza Vaccine: NONE Infectious Disease History: No Infectious Disease History: Denies: Traveled Outside the [place] in Last 30 Days - Family History Known Family History: Positive: Cardiac Disease, Hypertension, Blood Disorder, Other - GERD - Social History Occupation: Unemployed Lives: With Family Alcohol Use: Rare Hx Substance Use: No Substance Use Type: Reports: None Substance Use Comment - Amount & Last Used: Fentanyl patch 75mcg. Hx Tobacco Use: No Smoking Status (MU): Never Smoked Tobacco Review of Systems Constitutional: Negative Eyes: Negative Negative: Blurred Vision ENT: Negative Cardiovascular: Negative Negative: Palpitations, Chest Pain Respiratory: Negative Positive: Nausea. Negative: Vomiting Genitourinary: Negative Positive: Arthralgia - Neck, upper back and right shoulder pain, Other - COLVIN Skin: Negative Neurological: Other - Dizziness Positive: Headache, Syncope Psychological: Normal All Other Systems Reviewed And Are Negative: Yes Physical Exam - Summary Physical Exam Summary: ~ VITAL SIGNS:~Reviewed. GENERAL:~ Patient is an obese female who is lying comfortable in the stretcher. ~ Patient is not in any acute respiratory distress. HEAD AND FACE:~No signs of trauma.~ Ecchymosis on left forehead, hematomas or skull depressions. No sinus tenderness. EYES:~PERRLA, EOMI x 2, No injected conjunctiva, no nystagmus. EARS:~Hearing grossly intact. Ear canals and tympanic membranes are within normal limits. MOUTH:~Oropharynx within normal limits. NECK:~Supple, trachea is midline, no adenopathy, no JVD, no carotid bruit, no c- spine tenderness, neck with full ROM. CHEST:~Symmetric, no tenderness at palpation LUNGS:~Clear to auscultation bilaterally. No wheezing or crackles. CVS:~Regular rate and rhythm, S1 and S2 present, no murmurs or gallops appreciated. ABDOMEN:~Soft, non-tender. No signs of distention. No rebound no guarding, and no masses palpated. Bowel sounds are normal. EXTREMITIES:~Decreased ROM secondary to pain in the right shoulder, no edema, no cyanosis or clubbing. NEURO:~Alert and oriented x 3. No acute neurological deficits. Speech is normal and follows commands. SKIN:~Dry and warm BACK: No vertebral tenderness, no C-spine tenderness Triage Information Reviewed: Yes Vital Signs On Initial Exam: Initial Vitals Temp Pulse Resp BP Pulse Ox 97.3 F 75 16 131/76 100 11/04/16 14:52 11/04/16 14:52 11/04/16 14:52 11/04/16 14:52 11/04/16 14:52 Vital Signs Reviewed: Yes Diagnostics - Vital Signs Vital Signs Temp Pulse Resp BP Pulse Ox 11/04/16 14:52 97.3 F 75 16 131/76 100 - Laboratory Lab Statement: Any lab studies that have been ordered have been reviewed, and results considered in the medical decision making process. - Radiology Shoulder XR Xray Interpretation: No Acute Changes - NO ACUTE OSSEOUS INJURY. IF SYMPTOMS PERSIST, RECOMMEND REPEAT IMAGING. Radiology Interpretation Completed By: Radiologist - CT C-Spine CT CT Interpretation: No Acute Changes - DEGENERATIVE DISC DISEASE AND OSTEOARTHRITIS. NO ACUTE OSSEOUS INJURY TO THE CERVICAL SPINE CT Interpretation Completed By: Radiologist Brain CT CT Interpretation: No Acute Changes - NO ACUTE INTRACRANIAL PATHOLOGY CT Interpretation Completed By: Radiologist Adult Trauma Course/Dx - Course Assessment/Plan: 55 y/o female presents to ED s/p large ceramic bowl falling on her head. Patient c/o severe head and right shoulder pain, neck and upper back pain, nausea and dizziness. Patient denies vomiting, blurred vision, CP, and palpitations. Patient estimated that the bowl was over 20 lbs and stated that it fell on the top left region of her forehead. Patient had a syncopal episode but does not know for how long, from which she woke up on the floor. In the ED course, the patient was stable. She was given 1 Percocet for the pain. Head CT, C-spine CT and shoulder X-ray all show no acute pathology. She was discharged with a f/u with her PCP. She is ambulating well with a steady good walk. She has no other complaints. The patient is hemodynamically stable and AxOx3. - Diagnoses Provider Diagnoses: Contusion, hip, Neck pain, Shoulder pain Discharge - Discharge Plan Condition: Stable Disposition: HOME Patient Education Materials: Shoulder Pain (ED), Hip Contusion (ED), Neck Pain (ED) Referrals: Sandee Gonzalez MD [Primary Care Provider] - 3 Days The documentation as recorded by the Meg smith Edward accurately reflects the service I personally performed and the decisions made by Star de la rosa Walter, MD.
== END 2016-11-04 17:57 | disposition home or self-care (01) ==
LOC: ED 14:38
DX: S70.00XA Contusion of unspecified hip, initial encounter (principal); M54.2 Cervicalgia; M25.511 Pain in right shoulder; W20.8XXA Other cause of strike by thrown, projected or falling object, initial encounter; R55 Syncope and collapse; Z88.1 Allergy status to other antibiotic agents; Z88.5 Allergy status to narcotic agent; Z88.2 Allergy status to sulfonamides; Z91.030 Bee allergy status; Z79.01 Long term (current) use of anticoagulants; I25.10 Atherosclerotic heart disease of native coronary artery without angina pectoris; I10 Essential (primary) hypertension; M19.90 Unspecified osteoarthritis, unspecified site
CPT/HCPCS: 70450; 72125; 99282; A9270-GY

== ENCOUNTER 2016-11-18 11:43 | Emergency (ER) | payer OTHER, MEDICARE ==
[2016-11-18] MEDS ORDERED: Dexamethasone IV* 4 MG/ML 5 ML VIAL (20 MG) IVPB ONE (12:10)
[2016-11-18] MEDS ORDERED: Orphenadrine Citrate IV* 30 MG/ML 2 ML VIAL IV ONE (12:11)
[2016-11-18] MEDS ORDERED: HYDROmorphone* 1 MG/ML 1 ML SYR IV SLOW PU ONE (12:14)
--- NOTE | 2016-11-18 12:50 | RAD ---
HISTORY: Neck pain, numbness and tingling in the left hand COMPARISONS: November 04, 2016 TECHNIQUE: Multiple contiguous axial CT scans were obtained of the cervical spine without intravenous contrast, with coronal and sagittal multiplanar reformations. FINDINGS: BRAIN: The visualized brain is unremarkable CENTRAL CANAL: Evaluation of the central canal is limited on CT technique; however, there is no obvious canalicular mass or epidural hemorrhage. ALIGNMENT: There is straightening of the cervical lordosis. VERTEBRAL BODIES: There is mild anterolateral marginal osteophyte formation. JOINTS: There is uncovertebral and facet hypertrophic change. This most pronounced at C5-C6. MUSCULATURE: Unremarkable INTERVERTEBRAL DISCS: There is diffuse loss of intervertebral disc height. AXIAL IMAGES: As noted above, there is uncovertebral and facet hypertrophy most now set C5-C6. There is no significant osseous neuroforaminal narrowing or central canal stenosis. SOFT TISSUES: The visualized soft tissues of the neck are unremarkable. The prevertebral fat stripe is preserved. OTHER: None. IMPRESSION: 1. DEGENERATIVE CHANGES, MOST PRONOUNCED AT C5-C6, SIMILAR TO THE EXAMINATION OF NOVEMBER 04, 2016. 2. STRAIGHTENING OF THE CERVICAL LORDOSIS.
--- NOTE | 2016-11-18 13:40 | ED ---
Neck Pain - HPI Summary HPI Summary: 55F presents with extreme neck pain for 3 days. She denies any injury. She states she did have head injury on 11/04 and had no neck pain on that time. She states she has history of neck pain and sees a neck specialists but that it has never been this bad. She gets numbness and tingling into her hands which also occurs with her neck pain. She states that she has been taking tyenlol and flexeril for her pain and it is not enough. She is on a blood thinner for a clotting disorder. She denies any headache. She states she feels this is muscular pain and does not believe she is having a stroke or dissection. She has no midline neck pain. It is located mostly on the right side of her neck. She does have a history of strokes. She denies any fever, chest pain, or SOB. - History of Current Complaint Chief Complaint: EDNeckComplaint Stated Complaint: NECK PAIN Time Seen by Provider: 11/18/16 11:53 Hx Last Menstrual Period: N/A Pain Intensity: 8 - Allergies/Home Medications Allergies/Adverse Reactions: Allergies Allergy/AdvReac Type Severity Reaction Status Date / Time Bee Venom Allergy Severe Anaphylatic Verified 11/18/16 13:36 Shock Hydroxyzine [From Atarax] Allergy Mild Anxiety Verified 11/18/16 13:36 Amitriptyline Allergy See Comment Verified 11/18/16 13:36 CI Pigment Blue 63 Allergy seizure Verified 11/18/16 13:36 [From Cymbalta] Ciprofloxacin [From Cipro] Allergy Itching Verified 11/18/16 13:36 Duloxetine [From Cymbalta] Allergy seizure Verified 11/18/16 13:36 Morphine Allergy Difficulty Verified 11/18/16 13:36 Breathing Sulfa Antibiotics Allergy Unknown Verified 11/18/16 13:36 Reaction Details Amoxicillin [From Augmentin] AdvReac Intermediate NAUSEA/VOMI Verified 11/18/16 13:36 T Clavulanic Acid AdvReac Intermediate NAUSEA/VOMI Verified 11/18/16 13:36 [From Augmentin] T almonds Allergy See Comment Uncoded 08/08/16 21:15 PMH/Surg Hx/FS Hx/Imm Hx Endocrine/Hematology History: Reports: Hx Anticoagulant Therapy, Hx Blood Disorders, Hx Thyroid Disease - benign tumor, Other Endocrine/Hematological Disorders - pt states blood disorder but unable to tell what its called Denies: Hx Diabetes, Hx Anemia Cardiovascular History: Reports: Hx Angina, Hx Coronary Artery Disease, Hx Embolism, Hx Hypercholesterolemia, Hx Hypertension, Other Cardiovascular Problems/Disorders - HX OF STROKE 2009 HX OF PE X2 MOST RECENT 2006 Denies: Hx Congestive Heart Failure, Hx Myocardial Infarction, Hx Pacemaker/ ICD, Hx Valvular Heart Disease Respiratory History: Reports: Hx Pneumonia, Hx Pulmonary Embolism, Hx Seasonal Allergies Denies: Hx Asthma, Hx Chronic Obstructive Pulmonary Disease (COPD) GI History: Reports: 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., Hx Gastroesophageal Reflux Disease, Hx Gastrointestinal Bleed, Hx Hiatal Hernia, Other GI Disorders - Esophageal spasms Denies: Hx Jaundice History: Reports: Hx Kidney Stones - 4x Denies: Hx Dialysis, Hx Renal Disease Musculoskeletal History: Reports: Hx Arthritis, Hx Back Problems, Hx Bursitis, Hx Orthopedic Injury, Hx Osteoporosis Sensory History: Reports: Hx Contacts or Glasses, Hx Legally Blind - L eye, Hx Vision Problem - blind in left eye Denies: Hx Hearing Aid Opthamlomology History: Reports: Hx Contacts or Glasses, Hx Legally Blind - L eye, Hx Vision Problem - blind in left eye Neurological History: Reports: Hx CVA, Hx Headaches, Hx Migraine, Hx Seizures - 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 ABDOMINAL LAPROSCOPIC Hx Anesthesia Reactions: No - Immunization History Date of Tetanus Vaccine: PT STATES UNSURE Date of Influenza Vaccine: NONE Infectious Disease History: No Infectious Disease History: Denies: Traveled Outside the [place] in Last 30 Days - Family History Known Family History: Positive: Cardiac Disease, Hypertension, Blood Disorder, Other - GERD - Social History Alcohol Use: Rare Hx Substance Use: No Substance Use Type: Reports: None Substance Use Comment - Amount & Last Used: Fentanyl patch 75mcg. Hx Tobacco Use: No Smoking Status (MU): Never Smoked Tobacco Review of Systems Negative: Fever Negative: Chest Pain Negative: Shortness Of Breath Positive: Myalgia - neck pain All Other Systems Reviewed And Are Negative: Yes Physical Exam Triage Information Reviewed: Yes Vital Signs On Initial Exam: Initial Vitals Temp Pulse Resp BP Pulse Ox 97.7 F 75 20 148/100 100 11/18/16 11:44 11/18/16 11:44 11/18/16 11:44 11/18/16 11:44 11/18/16 11:44 Vital Signs Reviewed: Yes Appearance: Positive: Pain Distress Skin: Positive: Warm, Dry Head/Face: Positive: Normal Head/Face Inspection Eyes: Positive: Normal, Conjunctiva Clear ENT: Positive: Normal ENT inspection, Pharynx normal, TMs normal Respiratory/Lung Sounds: Positive: Clear to Auscultation, Breath Sounds Present Cardiovascular: Positive: Normal, RRR Musculoskeletal: Positive: Limited @ - neck due to pain, Other - good rn home health strength, good pulses, capillary refill < 2 secs, able to oppose all finger Neurological: Positive: Reflexes Intact - biceps Diagnostics - Vital Signs Vital Signs Temp Pulse Resp BP Pulse Ox 11/18/16 12:52 20 11/18/16 11:46 97.8 F 70 20 148/100 100 11/18/16 11:44 97.7 F 75 20 148/100 100 - Laboratory Lab Statement: Any lab studies that have been ordered have been reviewed, and results considered in the medical decision making process. - CT neck CT Interpretation: Positive (See Comments) - IMPRESSION: 1. DEGENERATIVE CHANGES , MOST PRONOUNCED AT C5-C6, SIMILAR TO THE EXAMINATION OF NOVEMBER 04, 2016. 2. STRAIGHTENING OF THE CERVICAL LORDOSIS. CT Interpretation Completed By: Radiologist Neck Course/Dx - Course Course Of Treatment: 55F presents with extreme neck pain for 3 days. She denies any injury. She states she did have head injury on 11/04 and had no neck pain on that time but things could be related to that. She states she has history of neck pain and sees a neck specialists but that it has never been this bad. She gets numbness and tingling into her hands which also occurs with her neck pain and is unchanged from previous. She states that she has been taking tyenlol and flexeril for her pain and it is not enough. She is on a blood thinner for a clotting disorder. She denies any headache. She states she feels this is muscular pain and does not believe she is having a stroke or dissection and does not work up for such. She has no midline neck pain on exam. It is located mostly on the right side of her neck. neurovascular intact. CT no acute changes. gave dilaudid, norflex, and decardon and pain dec. discussed pain options and since this is a long holiday weekend and can not get into primary will gave more pain medication than normal give to cover until can see primary next week. elen understands and agrees with plan - Diagnoses Differential Dx/HQI/PQRI: Positive: Arthritis, Sprain, Strain, Vertebral Artery Aneurysm Provider Diagnoses: Neck pain Discharge - Discharge Plan Condition: Good Disposition: HOME Prescriptions: Dexamethasone TAB* [Decadron TAB*] 4 mg PO DAILY #4 tab oxyCODONE/Acetamin 5/325 MG* [Percocet 5/325 TAB*] 1 tab PO Q6H PRN #20 tab MDD 4 PRN Reason: Pain Patient Education Materials: Neck Pain (ED) Referrals: Sandee Gonzalez MD [Primary Care Provider] - Additional Instructions: Take steroid once a day for next 4 days starting tomorrow Use Tylenol for pain every 6 hours and use narcotic for break through pain Take muscle relaxer has at home ice/heat area, move as much as possible Follow up with primary within 5 days Return to ED if develop any develop any new or worsening symptoms
[2016-11-18 13:58] VITALS: BP 137/67
== END 2016-11-18 13:58 | disposition home or self-care (01) ==
LOC: ED 11:43
DX: M54.2 Cervicalgia (principal)
CPT/HCPCS: 72125; 96374; 96375; 99282; J1170; J2360

== ENCOUNTER 2016-11-27 18:38 | Emergency (ER) | payer OTHER, MEDICARE ==
[2016-11-27 18:50] VITALS: BP 148/83
--- NOTE | 2016-11-27 19:11 | UC ---
Dental HPI - HPI Summary HPI Summary: 55 YEAR OLD PRESENTS WITH RIGHT SIDED LOWER FACE PAIN. SHE IS HAVING UNCONTROLLED VOMITING SO I WILL SEN D HER TO THE ER. - History of Current Complaint Chief Complaint: UCDentalProblem Stated Complaint: DENTAL COMPLAINT Time Seen by Provider: 11/27/16 19:04 Hx Last Menstrual Period: N/A - Allergies/Home Medications Allergies/Adverse Reactions: Allergies Allergy/AdvReac Type Severity Reaction Status Date / Time Bee Venom Allergy Severe Anaphylatic Verified 11/18/16 13:36 Shock Hydroxyzine [From Atarax] Allergy Mild Anxiety Verified 11/18/16 13:36 Amitriptyline Allergy See Comment Verified 11/18/16 13:36 CI Pigment Blue 63 Allergy seizure Verified 11/18/16 13:36 [From Cymbalta] Ciprofloxacin [From Cipro] Allergy Itching Verified 11/18/16 13:36 Duloxetine [From Cymbalta] Allergy seizure Verified 11/18/16 13:36 Morphine Allergy See Comment Verified 11/27/16 18:52 Sulfa Antibiotics Allergy Unknown Verified 11/18/16 13:36 Reaction Details Amoxicillin [From Augmentin] AdvReac Intermediate NAUSEA/VOMI Verified 11/18/16 13:36 T Clavulanic Acid AdvReac Intermediate NAUSEA/VOMI Verified 11/18/16 13:36 [From Augmentin] T almonds Allergy See Comment Uncoded 08/08/16 21:15 PMH/Surg Hx/FS Hx/Imm Hx Other History Of: Anticoagulant Therapy - Surgical History Surgical History: Yes Surgery Procedure, Year, and Place: GALLBLADDER 98,T&A 91, OVARY REMOVED, SHOULDER X3 ,WRIST,HYSTERECTOMY,TONSILS. ABDOMINAL LAPROSCOPIC - Family History Known Family History: Positive: Cardiac Disease, Hypertension, Blood Disorder, Other - GERD - Social History Alcohol Use: None Substance Use Type: None Substance Use Comment - Amount & Last Used: Fentanyl patch 75mcg. Smoking Status (MU): Never Smoked Tobacco - Immunization History Most Recent Influenza Vaccination: jan 2016 Most Recent Tetanus Shot: 11/2006 Most Recent Pneumonia Vaccination: 2005 Review of Systems Constitutional: Negative Skin: Negative Eyes: Negative ENT: Negative Respiratory: Negative Cardiovascular: Palpitations, Chest Pain Gastrointestinal: Negative Genitourinary: Negative Motor: Negative Neurovascular: Negative Musculoskeletal: Negative Neurological: Negative Psychological: Negative All Other Systems Reviewed And Are Negative: Yes Physical Exam Triage Information Reviewed: Yes Vital Signs: Initial Vital Signs Temp 36.3 C 11/27/16 18:45 Pulse 99 11/27/16 18:45 Resp 18 11/27/16 18:45 BP 148/83 11/27/16 18:45 Pulse Ox 99 11/27/16 18:45 Dental Complaint Course/Dx - Differential Dx/Diagnosis Provider Diagnoses: CHEST PAIN Discharge - Discharge Plan Condition: Stable Disposition: HOME Prescriptions: Chlorhexidine MW 0.12% 473ML* [Peridex Mouth Wash 0.12%*] 15 ml MT TID PC #1 btl Naproxen [Naproxen DR 500 MG TAB] 500 mg PO BID PC #30 tab Penicillin VK TAB 500 MG(NF) [Penicillin VK 500 mg Tab(NF)] 500 mg PO QID #28 tab Patient Education Materials: Dental Abscess (ED) Referrals: Sandee Gonzalez MD [Primary Care Provider] - If Needed
[2016-11-27] MEDS ORDERED: Penicillin VK TAB* 250 MG PO ONE (19:16)
== END 2016-11-27 19:45 | disposition home or self-care (01) ==
LOC: UCEAST 18:38
DX: R07.9 Chest pain, unspecified (principal); Z88.0 Allergy status to penicillin; Z88.3 Allergy status to other anti-infective agents; Z91.030 Bee allergy status; Z88.5 Allergy status to narcotic agent; Z91.018 Allergy to other foods
CPT/HCPCS: 99202; A9270-GY; G0463

== ENCOUNTER 2016-12-26 14:11 | Emergency (ER) | payer OTHER, MEDICARE ==
[2016-12-26] MEDS ORDERED: Ondansetron INJ* 2 MG/ML VIAL IV ONE (14:12)
[2016-12-26] MEDS ORDERED: Morphine INJ* 4 MG/ML 1 ML SYRINGE IV ONE (14:12)
[2016-12-26] MEDS ORDERED: diPHENhydraMINE IV* 25 MG in NS 0.9% 50 ML* 50 ML IVPB ONE ×2 (14:13→14:36)
[2016-12-26] MEDS ORDERED: LORazepam INJ* 2 MG/ML 1 ML VIAL IV PUSH ONE (14:36)
--- NOTE | 2016-12-26 14:45 | RAD ---
Indication: LEFT shoulder and elbow pain post fall. Swelling. Comparison: No relevant prior exams available on the [facility] PACS for comparison. Technique: AP and lateral views LEFT elbow Report: Patient discomfort limits positioning and image quality. No gross evidence for fat pad displacement to indicate effusion. No cortical disruption or suspicious trabecular irregularity to suggest fracture. Normal articular alignment. Few nonspecific calcifications at the level of the extensor musculature along the radial aspect of the proximal forearm. These do not appear to represent acute avulsion fragments from the LEFT lateral epicondyle. IMPRESSION: Negative for effusion, fracture, malalignment.
--- NOTE | 2016-12-26 14:51 | RAD ---
Indication: LEFT shoulder and elbow pain post fall. Comparison: No relevant prior exams available on the [facility] PACS for comparison. Technique: AP and scapular Y views LEFT shoulder. Positioning limited due to patient discomfort. Report: While positioning limits assessment there is suggestion of inferior dislocation of the humeral head. No definitive fracture evident. Normal acromioclavicular joint alignment. No fracture visualized. IMPRESSION: While assessment is limited due to patient discomfort the appearance is suspicious for inferior glenohumeral dislocation/luxatio erecta.
[2016-12-26] MEDS ORDERED: NS 0.9% 500 ML BAG* 500 ML IV SCH (15:00)
[2016-12-26] MEDS ORDERED: Midazolam* 1 MG/ML 5 ML VIAL (5 MG) SLOW PUSH ONE ×2 (15:08→15:09)
[2016-12-26] MEDS ORDERED: Naloxone* 0.4 MG/ML 10 ML VIAL ONE (16:53)
[2016-12-26] MEDS ORDERED: Flumazenil* 0.1 MG/ML 5 ML MDV ONE (16:53)
[2016-12-26] MEDS ORDERED: fentaNYL* 50 MCG/ML 2 ML VIAL (100 MCG VIAL) ONE (16:53)
[2016-12-26] MEDS ORDERED: HYDROcodone/ACETAMIN 5-325 MG* 1 TAB PO ONE (17:16)
--- NOTE | 2016-12-26 17:19 | PN ---
Progress Note - Progress Note Date of Service: 12/26/16 Note: reduction left shoulder done by Parul MORALES and Dr Arredondo attempts 1 with traction and counter traction joint reduced xray: showed joint reduced
--- NOTE | 2016-12-26 17:32 | RAD ---
Indication: Post reduction LEFT glenohumeral joint dislocation Comparison: Prereduction exam of the same date. Technique: AP LEFT shoulder REPORT AND IMPRESSION: Normal alignment of the glenohumeral joint in the AP projection with full assessment requiring an orthogonal view either scapular Y or axillary view. Fracture involving the greater tuberosity of the humerus with only mild displacement. Normal acromioclavicular joint alignment.
--- NOTE | 2016-12-26 19:42 | RAD ---
Indication: Low back pain post fall. Comparison: August 08, 2016 CT abdomen pelvis with sagittal and coronal reformatted images. Technique: AP and lateral views lumbar sacral spine. Report: Alignment is anatomic. No cortical disruption or trabecular impaction to indicate a vertebral body fracture. Preserved disc spaces. Facet joint osteoarthritis most prominent at L4-L5 and L5-S1. Unremarkable paraspinal soft tissue contours. Atherosclerotic calcification of the abdominal aorta and gallbladder fossa and pelvic surgical clips noted. IMPRESSION: No radiographic evidence for traumatic lumbar sacral spine injury.
[2016-12-26] MEDS ORDERED: oxyCODONE/Acetamin 5/325 MG* TAB PO ONE (20:11)
[2016-12-26 21:29] VITALS: BP 134/76
--- NOTE | 2016-12-28 07:55 | ED ---
Karishma Mckay SooYoung, scribed for Moreno Arredondo MD on 12/26/16 at 1418 . Upper Extremity Pain - HPI Summary HPI Summary: A 56 y/o F ALISSA presents to ED with acute, severe LUE pain onset [employer]. EMS gave pt two doses Fentanyl en route. Pt was at home and standing on a stool, she fell and landed on her LUE, mostly on her elbow she thinks. Mild L shoulder pain , mild numbness and tingling in L hand, but she is able to move her fingers. Denies CP, abd pain, back pain, abd pain. No LOC, head trauma. Has previously, broken her L wrist. No pain meds at home. PCP is Dr. Gonzalez. - History of Current Complaint Chief Complaint: EDExtremityUpper Stated Complaint: FALL Hx Obtained From: Patient Hx Last Menstrual Period: N/A Mechanism Of Injury: Fall From Height Of: - 1ft above ground (was on stool), Fall From A Standing Position Onset/Duration: Started Hours Ago, Traumatic, Still Present Severity Currently: Severe Pain Location: Arm - L Aggravating Factor(s): Movement Associated Signs & Symptoms: Positive: Numbness/Tingling - L hand, mild, Other - pos: mild L shoulder pain. Negative: Back Pain, Neck Pain - Allergies/Home Medications Allergies/Adverse Reactions: Allergies Allergy/AdvReac Type Severity Reaction Status Date / Time Bee Venom Allergy Severe Anaphylatic Verified 11/18/16 13:36 Shock Hydroxyzine [From Atarax] Allergy Mild Anxiety Verified 11/18/16 13:36 Amitriptyline Allergy See Comment Verified 11/18/16 13:36 CI Pigment Blue 63 Allergy seizure Verified 11/18/16 13:36 [From Cymbalta] Ciprofloxacin [From Cipro] Allergy Itching Verified 11/18/16 13:36 Duloxetine [From Cymbalta] Allergy seizure Verified 11/18/16 13:36 Morphine Allergy See Comment Verified 11/27/16 18:52 Sulfa Antibiotics Allergy Unknown Verified 11/18/16 13:36 Reaction Details Amoxicillin [From Augmentin] AdvReac Intermediate NAUSEA/VOMI Verified 11/18/16 13:36 T Clavulanic Acid AdvReac Intermediate NAUSEA/VOMI Verified 11/18/16 13:36 [From Augmentin] T almonds Allergy See Comment Uncoded 08/08/16 21:15 PMH/Surg Hx/FS Hx/Imm Hx Previously Healthy: No Endocrine/Hematology History: Reports: Hx Anticoagulant Therapy, Hx Blood Disorders, Hx Thyroid Disease - benign tumor, Other Endocrine/Hematological Disorders - pt states blood disorder but unable to tell what its called Denies: Hx Diabetes, Hx Anemia Cardiovascular History: Reports: Hx Angina, Hx Coronary Artery Disease, Hx Embolism, Hx Hypercholesterolemia, Hx Hypertension, Other Cardiovascular Problems/Disorders - HX OF STROKE 2008 HX OF PE X2 MOST RECENT 2006 Denies: Hx Congestive Heart Failure, Hx Myocardial Infarction, Hx Pacemaker/ ICD, Hx Valvular Heart Disease Respiratory History: Reports: Hx Pneumonia, Hx Pulmonary Embolism, Hx Seasonal Allergies Denies: Hx Asthma, Hx Chronic Obstructive Pulmonary Disease (COPD) GI History: Reports: 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., Hx Gastroesophageal Reflux Disease, Hx Gastrointestinal Bleed, Hx Hiatal Hernia, Other GI Disorders - Esophageal spasms Denies: Hx Jaundice History: Reports: Hx Kidney Stones - 4x Denies: Hx Dialysis, Hx Renal Disease Musculoskeletal History: Reports: Hx Arthritis, Hx Back Problems, Hx Bursitis, Hx Orthopedic Injury, Hx Osteoporosis Sensory History: Reports: Hx Contacts or Glasses, Hx Legally Blind - L eye, Hx Vision Problem - blind in left eye Denies: Hx Hearing Aid Opthamlomology History: Reports: Hx Contacts or Glasses, Hx Legally Blind - L eye, Hx Vision Problem - blind in left eye Neurological History: Reports: Hx CVA, Hx Headaches, Hx Migraine, Hx Seizures - 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, Other Neuro Impairments/Disorders - 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 Hypercoagulation Hx Chemotherapy: No Hx Radiation Therapy: No - Surgical History Surgery Procedure, Year, and Place: GALLBLADDER 98,T&A 91, OVARY REMOVED, SHOULDER X3 ,WRIST,HYSTERECTOMY,TONSILS. ABDOMINAL LAPROSCOPIC Hx Anesthesia Reactions: No - Immunization History Date of Tetanus Vaccine: PT STATES UNSURE Date of Influenza Vaccine: NONE - Family History Known Family History: Positive: Cardiac Disease, Hypertension, Blood Disorder, Other - GERD - Social History Occupation: Unemployed Lives: With Family Alcohol Use: None Hx Substance Use: No Substance Use Type: Reports: None Substance Use Comment - Amount & Last Used: Fentanyl patch 75mcg. Hx Tobacco Use: No Smoking Status (MU): Never Smoked Tobacco Review of Systems Negative: Fever, Chills Negative: Erythema Negative: Sore Throat Negative: Chest Pain Negative: Shortness Of Breath, Cough Negative: Abdominal Pain, Vomiting, Nausea Negative: dysuria, hematuria Positive: Arthralgia - L elbow pain, mild L shoulder pain, Myalgia - LUE pain, Decreased ROM - LUE. Negative: Edema Negative: Rash Neurological: Other - neg: dizziness Positive: Numbness - and tingling in L hand All Other Systems Reviewed And Are Negative: Yes Physical Exam - Summary Physical Exam Summary: Constitutional: Well-developed, Well-nourished, Alert. Pt is crying out, exam is inconsistent with pt's reported symptoms. Skin: Warm, Dry HENT: Normocephalic; Atraumatic Eyes: Conjunctiva normal Neck: Musculoskeletal ROM normal neck. (-) JVD, (-) Stridor, (-) Tracheal deviation Cardio: Rhythm regular, rate normal, Heart sounds normal; Intact distal pulses; The pedal pulses are 2+ and symmetric. Radial pulses are 2+ and symmetric. (-) Murmur. Good radial ulnar pulses. Pulmonary/Chest wall: Effort normal. (-) Respiratory distress, (-) Wheezes, (-) Rales Abd: Soft, (-) Tenderness, (-) Distension, (-) Guarding, (-) Rebound Musculoskeletal: (-) Edema. Some tenderness of proximal L humorous. Lymph: (-) Cervical adenopathy Neuro: Alert, Oriented x3 Psych: Mood and affect Normal Triage Information Reviewed: Yes Vital Signs Reviewed: Yes Diagnostics - Laboratory Lab Statement: Any lab studies that have been ordered have been reviewed, and results considered in the medical decision making process. - Radiology Elbow XR Xray Interpretation: No Acute Changes - IMPRESSION: Negative for effusion, fracture, malalignment. Radiology Interpretation Completed By: Radiologist Shoulder XR Xray Interpretation: Positive (See Comments) - IMPRESSION: While assessment is limited due to patient discomfort the appearance is suspicious for inferior glenohumeral dislocation/luxatio erecta. Radiology Interpretation Completed By: Radiologist Shoulder XR 2 Xray Interpretation: Positive (See Comments) - REPORT AND IMPRESSION: Normal alignment of the glenohumeral joint in the AP projection with full assessment requiring an orthogonal view either scapular Y or axillary view. Fracture involving the greater tuberosity of the humerus with only mild displacement. Normal acromioclavicular joint alignment. Radiology Interpretation Completed By: Radiologist L-SPINE XR Xray Interpretation: No Acute Changes - IMPRESSION: No radiographic evidence for traumatic lumbar sacral spine injury. Radiology Interpretation Completed By: Radiologist Re-Evaluation - Re-Evaluation 1 Re-Evaluation Time: 17:30 Change: Unchanged Comment: Pt recovering from sedation. 2 Re-Evaluation Time: 18:00 Change: Improved Comment: Pt awake but still groggy from sedation. 3 Re-Evaluation Time: 18:36 Change: Worse Comment: Discussing reduction with pt. Pt complains of low back pain; present contradicts this. Will order Back XR. Course/Dx - Course Course Of Treatment: Pt is a 56 y/o F BIBA presenting with acute, severe LUE pain onset [employer]. EMS gave pt two doses Fentanyl en route. Pt was standing on a stool, fell and landed on her LUE, mostly on her elbow she thinks. Mild L shoulder pain, mild numbness and tingling in L hand, but she is able to move her fingers. Denies CP, abd pain, back pain, abd pain. No LOC, head trauma. Has previously broken her L wrist. Denies taking pain meds at home. PCP is Dr. Gonzalez. In ED course, pt given fluids, Morphine, Zofran, Diphenhydramine, Ativan. L elbow XR is negative. L shoulder XR report states "while assessment is limited due to patient discomfort the appearance is suspicious for inferior glenohumeral dislocation/luxatio erecta.". L shoulder reduction performed, note to be completed by CARMEN Fan. Pt was sedated with 10mg Versed, which was tolerated well. Capnography, bag/valve mask, suction and cardiac monitoring present. Shoulder XR after reduction shows "Normal alignment of the glenohumeral joint in the AP projection with full assessment requiring an orthogonal view either scapular Y or axillary view. Fracture involving the greater tuberosity of the humerus with only mild displacement. Normal acromioclavicular joint alignment." L-spine XR is negative. Will d/C home with Percocet to f/u with ortho. - Diagnoses Provider Diagnoses: Greater tuberosity of humerus fracture, Shoulder dislocation Discharge - Discharge Plan Condition: Stable Disposition: HOME Prescriptions: oxyCODONE/Acetamin 5/325 MG* [Percocet 5/325 TAB*] 1 tab PO Q6H PRN #10 tab MDD 4 PRN Reason: Pain Scale 6-10 Patient Education Materials: Shoulder Dislocation (ED), Oxycodone/ Acetaminophen (By mouth), Proximal Humerus Fracture (ED) Referrals: Sandee Gonzalez MD [Primary Care Provider] - Justino Ge MD [Medical Doctor] - 3 Days (Follow up within 2-3 days.) Additional Instructions: Follow up with crystal Robles, in the next 2-3 days. Please return to the ED if you experience new or worsening symptoms. The documentation as recorded by the Karishma smith SooYoung accurately reflects the service I personally performed and the decisions made by , Moreno Arredondo MD.
== END 2016-12-26 21:27 | disposition home or self-care (01) ==
LOC: ED 14:11
DX: S42.252A Displaced fracture of greater tuberosity of left humerus, initial encounter for closed fracture (principal); S43.006A Unspecified dislocation of unspecified shoulder joint, initial encounter; W19.XXXA Unspecified fall, initial encounter; Y93.9 Activity, unspecified; Y92.89 Other specified places as the place of occurrence of the external cause
CPT/HCPCS: 72100; 99285; A9270-GY; J1200; J2060; J2250; J2270; J2310; J2405; J3010

== ENCOUNTER 2016-12-29 12:02 | Day surgery (SDC) | payer OTHER, MEDICARE ==
--- NOTE | 2016-12-29 03:42 | HP ---
CC: PCP, Dr. Gonzalez * HISTORY AND PHYSICAL: DATE OF ADMISSION: 12/29/16 HISTORY OF PRESENT ILLNESS: Nichole is a 56-year-old right-hand dominant female who sustained an injury when she was standing on a step stool to pick some lice on her lean tube. This occurred on 12/26/16 and she fell off the step stool and landed on her outstretched arm, the arm then dislocated. She was subsequently transferred to the [facility] [place] [facility]. She states that it was about 2 to 2 -1/2 hours before an x-ray was done and then it was relocated. She then presented to me for followup. She states that her pain is about 3/10. She has been using a shoulder immobilizer. She does still have some persistent numbness and tingling particularly on the lateral deltoid and even in the hands somewhat. She has noticed that it decreases somewhat but it is still present. She denies any fevers or chills. She has not been moving the shoulder very much. She has never had any prior shoulder surgery or trauma to the shoulder. PAST MEDICAL HISTORY: Significant for high blood pressure, DVT, pulmonary embolism for which she is on Lovenox, high cholesterol, arthritis, thyroid problems, past history of seizures, stroke, kidney disease, kidney stones, bleeding problems, anxiety, history of cervical cancer. PAST SURGICAL HISTORY: Significant for carpal tunnel and tendon repair in 2008 , at least 3 right shoulder surgeries done in [place], hysterectomy, tonsillectomy, oophorectomy, laparoscopic abdominal surgery for acute colitis. MEDICATIONS: Include: 1. Diltiazem. 2. Losartan. 3. Levothyroxine. 4. Omeprazole. 5. Crestor. 6. Lovenox. 7. Soma. 8. Vitamin B3. 9. Vitamin D3 10. Lipitor. ALLERGIES: AUGMENTIN, CYMBALTA, ALMONDS, HYDROXYZINE, VISTARIL, SEPTRA. FAMILY HISTORY: Significant for diabetes in her mother, heart disease in everyone, high blood pressure in everyone, stroke in her father, cancer in her mother and maternal aunt, psoriatic arthritis in her sibling and her grandmother , osteoarthritis in her sibling and parents, hypogonadism I think in her father. SOCIAL HISTORY: She lives with her spouse. 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 She denies tobacco. She drinks 1 alcoholic beverage per week. She walks occasionally. 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 She is right hand dominant, but she also does a lot with her left hand. REVIEW OF SYSTEMS: A 14-point review of systems reviewed, the patient is significant for nausea and vomiting due to pain, kidney stones by history, chronic neck or back pain, weakness, fatigue, easy bleeding and bruising, history of PE as well as the above complaint. PHYSICAL EXAMINATION GENERAL: She is in no acute distress. She is well developed, well nourished. She is alert, oriented x3. She has pleasant mood and normal effect. HEENT: EOMI. LUNGS: Her chest is clear to auscultation. HEART: Regular rate and rhythm. ABDOMEN: Soft and nontender. EXTREMITIES: Examination of the left shoulder demonstrates the skin is intact. There is no erythema or warmth. She has some diminished sensation about the lateral deltoid. She is nontender about the elbow or wrist. She is able to flex and extend her wrist. She is sensate to light touch about the first dorsal webspace and into long finger, also small finger, although it is somewhat subdued. She has 2+ radial pulse. DIAGNOSTIC STUDIES: X-rays reviewed, repeat images obtained today demonstrates a greater tuberosity fracture with a well-located joint with some displacement in rotation. ASSESSMENT AND PLAN: She has displaced greater tuberosity fracture. She is young and she is very active at this point. I would recommend open reduction internal fixation. We can do this as early as tomorrow. We obtained labs which I reviewed at the time of this dictation and are unremarkable. We talked about pain management. I wrote a prescription for oxycodone to help control her pain. I will plan for open reduction internal fixation of the left shoulder tomorrow. We talked about the risks and benefits of surgery. Risks include but are not limited to bleeding, infection, damage to nerves, vessels, surrounding structures, wound nonhealing, persistent pain, need for further surgery, risks of anesthesia, scarring, incomplete relief of symptoms, loss of motion, risk of osteonecrosis and risk of anesthesia. She is also at risk of DVT. I will see the patient back approximately 10 to 14 days postop. [id number]/[facility] #: [id number] [facility]AMPUSNarciso
[~2016-12-29 12:02] MED LIST: Buffered Lidocaine 0.9% SYRIN* 5 ML/SYR SYRINGE INTRADERM ONE; Dexamethasone IV* 4 MG/ML 1 ML (4 MG) IV SLOW PU ONE
[2016-12-29] MEDS ORDERED: Dexamethasone IV* 4 MG/ML 1 ML (4 MG) ONE (12:03)
[2016-12-29] MEDS ORDERED: Buffered Lidocaine 0.9% SYRIN* 5 ML/SYR SYRINGE ONE (12:03)
[2016-12-29] MEDS ORDERED: Clindamycin 900 MG IVPREMIX(* 900 MG/50 ML SDV IV ONE (12:03)
[2016-12-29] MEDS ORDERED: ROPIVACAINE 5 MG/ML 30 ML BTL (0.5%) ONE (14:25)
[2016-12-29] MEDS ORDERED: Midazolam* 1 MG/ML 5 ML VIAL (5 MG) ONE (15:02)
[2016-12-29] MEDS ORDERED: Propofol* 10 MG/ML 20 ML BTL IV PUSH ONE (15:43)
[2016-12-29] MEDS ORDERED: Atracurium* 10 MG/ML 10 ML VIAL ONE (15:43)
[2016-12-29] MEDS ORDERED: fentaNYL* 50 MCG/ML 2 ML VIAL (100 MCG VIAL) ONE (15:43)
[2016-12-29] MEDS ORDERED: Ketorolac INJ* 30 MG/ML 1 ML VIAL ONE (15:43)
[2016-12-29] MEDS ORDERED: Ondansetron INJ* 2 MG/ML VIAL ONE ×2 (15:43→18:25)
[2016-12-29] MEDS ORDERED: Desflurane* 240 ML INH ONE (17:32)
[2016-12-29] MEDS ORDERED: Scopolamine 1.5 mg* PATCH TRANSDERM PRN (18:26)
[2016-12-29] MEDS ORDERED: Ondansetron INJ* 2 MG/ML VIAL IV PRN (18:26)
[2016-12-29] MEDS ORDERED: fentaNYL* 50 MCG/ML 2 ML VIAL (100 MCG VIAL) IV PRN (18:26)
[2016-12-29] MEDS ORDERED: DiMENhydriNATE IV* 50 MG/ML VIAL IV PUSH PRN (18:26)
[2016-12-29] MEDS ORDERED: HYDROmorphone* 1 MG/ML 1 ML SYR IV PRN (18:26)
[2016-12-29] MEDS ORDERED: oxyCODONE/Acetamin 5/325 MG* TAB PO PRN (18:26)
[2016-12-29] MEDS ORDERED: DiMENhydriNATE IV* 50 MG/ML VIAL ONE (18:50)
[2016-12-29] MEDS ORDERED: Scopolamine 1.5 mg* PATCH ONE (18:50)
[2016-12-29 19:11] VITALS: BP 156/99
--- NOTE | 2016-12-29 19:30 | RAD ---
CPT II Codes: 6045F INDICATION: Left proximal humerus ORIF TECHNIQUE: Intraoperative fluoroscopy was provided during left proximal humerus ORIF. FINDINGS: 4 spot films depict 2 medullary screws overlying the greater trochanter of the right humerus.. Fluoroscopy time: 37 seconds IMPRESSION: As above.
--- NOTE | 2016-12-30 02:14 | OP ---
DATE OF OPERATION: 12/29/16 [facility] DATE OF : 62 SURGEON: Karlee Lopez MD. ASSISTANTS: CARMEN Dowell and CARMEN Yusuf. Assistants were needed for the entirety of the case to help with positioning, retraction, and was utilized throughout all portions of the case. ANESTHESIOLOGIST: Dr. Cordoba. ANESTHESIA: General interscalene block. PRE-OP DIAGNOSIS: Left shoulder fracture dislocation greater tuberosity fracture. POST-OP DIAGNOSIS: Left shoulder fracture dislocation greater tuberosity fracture. There was some mild comminution. OPERATIVE PROCEDURE: Open reduction internal fixation of left proximal humerus as well as backup rotator cuff repair. COMPLICATIONS: None. ESTIMATED BLOOD LOSS: 50 cc. IMPLANTS USED: Synthes 4.0 cannulated screws x2 size 32 and 34 mm as well as one Almanzar and [employer] Multifix anchor. INDICATIONS: Nichole Boggs is a 56-year-old right hand dominant female who 3 days ago was standing on an 18-inch step stool when she fell and landed on her shoulders. She experienced immediate pain and swelling, was seen in the ER and diagnosed with a dislocated shoulder. She also sustained a greater tuberosity fracture. She was closed reduced and she followed up in my office yesterday. We reviewed the diagnosis. She is 56 and relatively young. This is not her dominant arm; however, she is very active with both and is almost ambidextrous. This was displaced and we talked about open reduction internal fixation. After review of the risks and benefits, which included, but are not limited to bleeding, infection, damage to nerves, vessels, surrounding structures, wound nonhealing, persistent pain, need for further surgery, scarring, stiffness, risk of anesthesia, osteonecrosis, incomplete relief of symptoms, retear, hardware failure, nonunion, she has elected to proceed. DESCRIPTION OF PROCEDURE: The patient was greeted in the preoperative area by the attending surgeon. The correct extremity was marked and consent was confirmed. The patient underwent interscalene nerve block with anesthesiologist. Please note that she had some paresthesias from the original dislocation, but both she and the anesthesiologist chose to proceed with a block. She was aware that she had likely a stretch injury and this may take some time to resolve. After the block was done, she was brought to the operative suite, where she was placed in supine position on the operating table. She then underwent general anesthesia with endotracheal intubation after which she was placed in the [facility] beach chair position. All bony prominences were padded. SCDs were placed and Zach hugger as well and the patient was appropriately positioned after x-ray confirmation of the fracture as well as positioning. The left shoulder was prepped and draped in the usual sterile fashion beginning with chlorhexidine soap, scrub, and alcohol wipe and a final prep with ChloraPrep. After appropriate surgical pause indicating side, site, procedure, and administration of antibiotics, the lateral deltoid split approach was made. Approximately 6 cm skin incision was then made. The soft tissues were carefully dissected to expose the deltoid fascia. The tip of the acromion was palpated again and a ruler was used to measure approximately 5 cm distal to the tip to place a stay suture to protect any further complication in deltoid split and therefore, possible damage to the axillary nerve. Once this was placed with a nonabsorbable suture, the deltoid was bluntly split in line with its fibers, which exposed the subdeltoid bursa, which was then carefully excised and removed, this helped identify the fracture fragment. The fracture fragment was displaced posteriorly. The hematoma and fracture fragment were debrided. There was a small cortical piece and there was some comminution at the fracture line. The fractured feet was then gently manipulated and reduced carefully. The articular surface was able to be slightly visualized and there was a small stepoff that should attempted to be corrected. There was a small area of impaction of the joint from the comminution that was carefully lifted back into place. Once the reduction was done, this was secured with K-wires that were sized for a cannulated 4.0 screw. The size 2-7 drill bit was then used to break the cortex of the very proximal screw. This was again confirmed under C-arm visualization. At this point, the guidewires were measured and the appropriate length long threaded cannulated screws were then placed with appropriate level of tightening and care not to overtighten or over compress the fracture. The shoulder was taken through range of motion with x-ray gotten and found to have good stability in all planes. The decision was then made to back this up because of the small amount of comminution and the small cortical piece that was easily able to be cued in, but needed some compression. A Almanzar and Nephew fiber tape was then passed through the supraspinatus tendon using a free needle and then passed through a knot that was distal to the fracture with care not to damage the axillary nerve. Once this was complete and shoulder was again taken through range of motion, status post reduction, the wounds were copiously irrigated with sterile saline. The deltoid fascia was closed with #2 Ti-Cron. The subcutaneous tissue was closed with 2-0 Vicryl and the skin was closed with lucila. Sterile dressings were applied. She was placed in a regular sling as well as Cryo/Cuff. She was awoken from anesthesia and transferred to PACU in stable condition. POSTOPERATIVE PLAN: She will be nonweightbearing for 6 weeks. I will protect her and allow only elbow, wrist, and hand range of motion as well as pendulums for the first 2 weeks and I will put her on physical therapy to work on passive range of motion. I will see the patient back in 10 to 14 days. She will be discharged on pain medication and antibiotics. DVT prophylaxis was considered, but she is already on Lovenox for hypercoagulable state. [id number]/[facility] #: [id number] MTDD
[2017-01-01] MEDS ORDERED: Scopolomine PATCH Remove* 1 NOTE MISC PATCH OFF ONE (18:27)
== END 2016-12-29 19:50 | disposition home or self-care (01) ==
LOC: OR 12:02
PROVIDERS: ATTEND Orthopaedic Surgery
DX: S42.252A Displaced fracture of greater tuberosity of left humerus, initial encounter for closed fracture (principal); I10 Essential (primary) hypertension; E03.9 Hypothyroidism, unspecified; W11.XXXA Fall on and from ladder, initial encounter; Y92.009 Unspecified place in unspecified non-institutional (private) residence as the place of occurrence of the external cause
CPT/HCPCS: A9270-GY; C1713; J1100; J1240; J1885; J2250; J2405; J2704; J2795; J3010

== ENCOUNTER 2017-06-01 14:45 | Emergency (ER) | payer OTHER, MEDICARE ==
--- OUTSIDE RECORDS SUMMARY | 2017-06-01 15:29 | XMS REPORT ---
:1960 External Reference #:[id number] Author Organization [facility] Address [address] [address] Phone [phone] Care Team Providers Name Role Phone Sandee Gonzalez MD Primary Care Physician Unavailable Payers Type Date Identification Numbers Payment Provider Subscriber Commercial Effective: Policy Number: [employer] Gil Boggs 2008 [id number] Group Number: [id number] [address] PayID: [id number] [place] [address] Medigap Part B Effective: 2014 Policy Number: Medicare Nichole Boggs [id number] PayID: [id number] [address] [place] [address] Problems Date Description Provider Status Onset: 03/05/2014 Essential hypertension Basil Kuo M.D., [facility], Active [facility] Onset: 03/05/2014 Coronary arteriosclerosis Basil Kuo M.D., [facility], Active [facility] Onset: 03/05/2014 Hyperlipidemia Basil Kuo M.D., [facility], Active [facility] Onset: 03/05/2014 Obesity Basil Kuo M.D., [facility], Active [facility] Onset: 10/10/2014 Cervical spondylosis without Russell Godfrey M.D. 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 ETOH Use Denies alcohol use Smoking Patient has never smoked Recreational Drug Use Denies Drug Use Allergies, Adverse Reactions, Alerts Date Description Reaction Status Severity Comments 05/28/2013 Augmentin active 05/28/2013 Almonds active 03/05/2014 Cymbalta active 03/05/2014 Hydroxyzine active 12/28/2016 Vistaril active 12/28/2016 Sulfamethoxazole/Trimethoprim active 12/31/2016 Sulfa Antibiotics active Medications Medication Date Status Form Strength Qnty SIG Indications Ordering Provider Percocet 01/11/ Active Tablets 7.5-325mg 20tab take 1 S42.252D Zaneb 2017 s tabs as Yaseen, needed MD every 6-8 hours Cyclobenzaprine 01/11/ Active Tablets 10mg 60tab take 1 S42.252D Zaneb HCL 2016 s tab 3 Yaseen, times a MD day as needed Diltiazem HCL ER 03/05/ Active Caps ER 120mg 90cap 1 cap by 414.01 Basil Coated Beads 2013 24HR s mouth Stefek, every day M.D., FACC, [facility] Gralise / Active Tablets 600mg 90tab 1 tab po Unknown 0000 s daily Vitamin B Complex / Active Tablets 1 by Unknown 0000 mouth every day Levothyroxine / Active 105mcg Unknown Sodium 0000 Omeprazole / Active Capsules 20mg [address] mouth every day Lovenox / Active Solution 150mg/ml 150 mg sc Unknown 0000 twice a day as directed Losartan / Active Tablets 50mg 1 by Unknown Potassium 0000 mouth every day Crestor / Active Unknown 0000 Cyclobenzaprine 12/31/ Hx Tablets 10mg 30tab 1 tablet Z48.89 Nyla HCL 2016 - s by mouth Eleno, 01/11/ q8 hours M.D. 2016 as needed muscle spasms Clindamycin HCL 12/29/ Hx Capsules 300mg 15cap 1 tab by Karlee 2016 - s mouth Yaseen, 03/09/ three MD 2017 times a day for 5 days Oxycodone-Acetami 12/28/ Hx Tablets 7.5-325mg 45tab take 1 S42.252A Karlee mcdaniel 2017 - s tab every Yase, 03/09/ 4 hours 2016 as needed for pain [place] 05/18/ Hx Tablets 5-325mg 60tab 1-2 po Dirk 2010 - s q4-6hr Dara, 03/04/ abdulkadirn Oumar 2013 Lisinopril /00/ Hx Unknown 2013 Coumadin / Hx Unknown 2013 Lipitor / Hx Unknown 2013 Lipitor / Hx Tablets 40mg 1 by Unknown 0000 - mouth at 12/30/ bedtime 2016 Lisinopril / Hx Tablets 10mg 1 by Unknown 0000 - mouth 12/28/ 2016 Aspirin / Hx Tablets 81mg 1 by Unknown 0000 - mouth 12/28/ day 2016 Fentanyl / Hx Patches 50mcg/HR 10uni one every Unknown 0000 - 72HR ts 48 hours 2016 Percocet / Hx Tablets 7.5-325mg 100ta 1-2 by Unknown 0000 - bs mouth 01/11/ four 2017 times a day as needed Diazepam / Hx Tablets 5mg 2tabs as needed Unknown - 2016 Soma / Hx Tablets 350mg 30tab as needed Unknown 0000 - s 2016 Vitamin D3 / Hx Capsules 1000Unit 90cap 1 by Unknown 0000 - s mouth 12/30/ day 2016 Magnesium / Hx Tablets 250mg 1 by Unknown 0000 - mouth 12/28/ day 2016 Medications Administered in Office Medication Date Status Form Strength Qnty SIG Indications Ordering Provider Depomedrol Administered Injection Dirk Dara, 40MG 012 M.D. Depomedrol Administered Injection Dirk Dara, 40MG 011 M.D. Depomedrol Administered Injection Dirk Dara, 40MG 009 M.D. Vital Signs Date Vital Result Comment 05/06/2017 Height 62 inches 5'2" Weight 210.00 lb BP Systolic 142 mmHg BP Diastolic 84 mmHg Body Temperature 97.8 F BMI (Body Mass Index) 38.4 kg/m2 03/11/2017 Height 62 inches 5'2" Weight 214.00 lb Heart Rate 99 /min Respiratory Rate 17 /min Body Temperature 97.1 F Pain Level 2 BMI (Body Mass Index) 39.1 kg/m2 02/11/2017 Height 62 inches 5'2" Weight 220.00 lb Heart Rate 68 /min BP Systolic 130 mmHg BP Diastolic 70 mmHg Respiratory Rate 18 /min Pain Level 3 BMI (Body Mass Index) 40.2 kg/m2 01/11/2017 Height 62 inches 5'2" Weight 220.00 lb Heart Rate 68 /min Respiratory Rate 17 /min Body Temperature 97.4 F Pain Level 3 BMI (Body Mass Index) 40.2 kg/m2 12/31/2016 Heart Rate 63 /min BP Systolic 109 mmHg BP Diastolic 60 mmHg Body Temperature 97.9 F 12/28/2016 Height 62 inches 5'2" Weight 220.00 lb BP Systolic 134 mmHg BP Diastolic 88 mmHg Body Temperature 97.7 F Pain Level 3 BMI (Body Mass Index) 40.2 kg/m2 10/10/2014 Height 61 inches 5'1" Weight 206.00 lb Heart Rate 50 /min BP Systolic Sitting 150 mmHg BP Diastolic Sitting 70 mmHg Pain Level 6 L arm BMI (Body Mass Index) 38.9 kg/m2 03/05/2014 Height 61 inches 5'1" Weight 202.00 lb Heart Rate 80 /min 96 BP Systolic Sitting 102 mmHg left arm, large cuff BP Diastolic Sitting 80 mmHg left arm, large cuff BP Systolic Standing 92 mmHg left arm, large cuff BP Diastolic Standing 76 mmHg left arm, large cuff Respiratory Rate 16 /min BMI (Body Mass Index) 38.2 kg/m2 Results Test Date Test Result H/L Range Note CBC Auto Diff 12/28/2016 White Blood Count 10.0 10^3/uL 3.5-10.8 Red Blood Count 4.54 10^6/uL 4.0-5.4 Hemoglobin 13.5 g/dL 12.0-16.0 Hematocrit 41 % 35-47 Mean Corpuscular Volume 91 fL 80-97 Mean Corpuscular Hemoglobin 30 pg 27-31 Mean Corpuscular HGB Conc 33 g/dL 31-36 Red Cell Distribution Width 15 % 10.5-15 Platelet Count 250 10^3/uL 150-450 Mean Platelet Volume 9 um3 7.4-10.4 Abs Neutrophils 6.6 10^3/uL 1.5-7.7 Abs Lymphocytes 2.4 10^3/uL 1.0-4.8 Abs Monocytes 0.9 10^3/uL High 0-0.8 Abs Eosinophils 0.1 10^3/uL 0-0.6 Abs Basophils 0.1 10^3/uL 0-0.2 Abs Nucleated RBC 0 10^3/uL Granulocyte % 65.7 % 38-83 Lymphocyte % 23.8 % Low 25-47 Monocyte % 9.0 % 1-9 Eosinophil % 0.9 % 0-6 Basophil % 0.6 % 0-2 Nucleated Red Blood Cells % 0 Basic Metabolic Panel 12/28/2016 Sodium 135 mmol/L 133-145 Potassium 3.9 mmol/L 3.5-5.0 Chloride 99 mmol/L Low 101-111 Co2 Carbon Dioxide 27 mmol/L 22-32 Anion Gap 9 mmol/L 2-11 Glucose 104 mg/dL High 70-100 Blood Urea Nitrogen 18 mg/dL 6-24 Creatinine 0.91 mg/dL 0.51-0.95 BUN/Creatinine Ratio 19.8 8-20 Calcium 9.4 mg/dL 8.6-10.3 Egfr Non- 64.2 >60 Egfr 82.5 >60 1 Basic Metabolic Panel 07/11/2010 Sodium 139 mmol/L 135-145 Potassium 4.1 mmol/L 3.5-5.0 Chloride 107 mmol/L 101-111 Co2 (Carbon Dioxide) 28.0 mmol/L 22-32 Anion Gap 4.0 mmol/L 2-11 2 Glucose 131 mg/dL High 70-100 BUN 15 mg/dL 6-24 Creatinine 1.00 mg/dL 0.50-1.40 One Over Creatinine 1.00 BUN/Creatinine Ratio 15.0 8-20 Calcium 8.7 mg/dL 8.1-9.9 eGFR Non- 59.2 > 60 eGFR 76.1 > 60 3 International Normalized Ratio 07/11/2010 Inr 7.21 High 0.82-1.17 4, 5 Protime 94.4 SEC High 10.2-14.8 4, 6 Laboratory test finding 07/11/2010 PTT (Aptt) 43.8 High 25.15-38.53 4 1 Because ethnic data is not always readily available, this report includes an eGFR for both -Americans and non- Americans. The National Kidney Disease Education Program (NKDEP) does not endorse the use of the MDRD equation for patients that are not between the ages of 18 and 70, are , have extremes of body size, muscle mass, or nutritional status, or are non- or non-. According to the National Kidney Foundation, irrespective of diagnosis, the stage of the disease is based on the level of kidney function: Stage Description GFR(mL/min/1.73 m(2)) 1 Kidney damage with normal or decreased GFR 90 2 Kidney damage with mild decrease in GFR 60-89 3 Moderate decrease in GFR 30-59 4 Severe decrease in GFR 15-29 5 Kidney failure <15 (or dialysis) 2 Anion gap measurement may be of limited value in the presence of any alkalosis, especially in a combined acid base disorder. . 3 Because ethnic data is not always readily available, this report includes an eGFR for both -Americans and non- Americans. The National Kidney Disease Education Program (NKDEP) does not endorse the use of the MDRD equation for patients that are not between the ages of 18 and 70, are , have extremes of body size, muscle mass, or nutritional status, or are non- or non-. According to the National Kidney Foundation, irrespective of diagnosis, the stage of the disease is based on the level of kidney function: Stage Description GFR(mL/min/1.73 m(2)) 1 Kidney damage with normal or decreased GFR 90 2 Kidney damage with mild decrease in GFR 60-89 3 Moderate decrease in GFR 30-59 4 Severe decrease in GFR 15-29 5 Kidney failure <15 (or dialysis) 4 VERBAL TO ILEANA JEAN-BAPTISTE BY PENDING SALE TO [facility] at 0811 on 07/11/10. Results read back accurately. 5 Recommended INR for Patients on Oral Anticoagulants Prophylaxis 2.0 - 3.0 Treatment of thrombosis 2.0 - 3.0 Prevention of embolism 2.0 - 3.0 Prevention of embolism from prosthetic heart valves 2.5 - 3.5 6 DIAGNOSIS,TREATMENT,AND THERAPY MUST BE BASED ON THE INR VALUE ALONE. Procedures Date CPT Code Description Status 12/29/2016 77403 Dislocation Shoulder Open TX W/FX GRTR Tuberosity W/Wo Completed Fixation 12/29/2016 65416 Dislocation Shoulder Open TX W/FX GRTR Tuberosity W/Wo Completed Fixation 08/07/2015 88236 Treadmill Interp/Report Only Completed 08/07/2015 85178 Stress Test Supervsn W/Out I/R Completed 08/06/2015 05360 ECHO Transthorasic Realtime 2D W Doppler & Color Completed Flow [facility] 03/05/2014 30314 EKG Tracing & Interpretation Completed 01/25/2014 54596 Left Heart Cath. Incl S/I Coronaries, Angio S/I V Gram Completed If Done 01/25/2014 80319 ECHO Transthorasic Realtime 2D W Doppler & Color Completed [facility] 01/25/2014 76231 Treadmill Interp/Report Only Completed 01/25/2014 79889 Stress Test Supervsn W/Out I/R Completed 11/01/2012 77379 Xray Knee 3 Views Completed 11/01/2012 66549 Rad Exam; Knee, Ap&L Completed 03/04/2012 79935 EKG, Interpretation Only Completed 10/22/2011 89726 Inject/Drain Joint/Bursa Major Completed 10/22/2011 96049 Xray Knee 3 Views Completed 05/27/2011 46652 Carpal Tunnel Release Completed 05/27/2011 50582 Carpal Tunnel Release Completed 05/27/2011 98075 Dequervains-Tendon Sheath Incision/Extensor Completed Sheath,Wrist 05/27/2011 49881 Dequervains-Tendon Sheath Incision/Extensor Completed Sheath,Wrist 05/18/2011 08546 Rad Exam; Elbow, Comp Completed 05/03/2011 61412 Rad Exam; Wrist, Comp, Min 3 Views Completed 05/03/201156514 Inject/Drain Joint/Bursa Small Completed 05/03/201163271 Injection, Carpal Tunnel Completed 08/05/2009 23286 Rad Exam; Knee Comp Completed 03/17/2009 37552 Rad Exam; Pelvis Completed 03/17/200988375 Inject/Drain Joint/Bursa Major Completed Encounters Type Date Location Provider CPT E/M Dx Office Visit 03/11/2017 [facility] [place] [address] S42.252D 9:00a C.M.A. M25.522 Office Visit 12/28/2016 8:45a [facility] [place] [address] S42.252A C.M.A. Office Visit 08/11/2016 11:00a [facility], 81462 R10.84 Assoc, Hospitalists Oumar E03.9 K21.9 E78.5 Office Visit 08/10/2016 8:34a [facility] Clayton Casillas, 23543 R10.10 Of Ariel PA R19.7 Office Visit 08/10/2016 11:00a [facility] Assoc,[facility], 45414 R10.84 Hospitalists Oumar K21.9 E78.5 E03.9 Office Visit 08/09/2016 [facility], 10800 R10.84 Hospitalists Oumar K21.9 E03.9 E78.5 Office Visit 08/09/2016 7:00a [facility] Gil Jernigan, 67149 R10.84 Of Ariel MATUTE R10.10 R11.2 R19.7 Office Visit 08/09/2016 7:00a [facility] CARMEN Mccall 00000 R10.84 Of Tuck Pointer R11.2 R19.7 Office Visit 08/08/2016 10:59a [facility]oc, Mauricio Michael M.D. 05347 R10.84 Hospitalists E03.9 K21.9 E78.5 Office Visit 01/02/2015 1:14p [facility] [address] 557.9 Hospitalists 578.9 558.9 401.9 Office Visit 01/01/2015 1:13p [facility],[place] [address] 557.9 Hospitalists 578.9 401.9 Office Visit 12/31/2014 1:13p [facility], Lala Gimenez, 60715 578.9 Hospitalists Oumar 558.9 401.9 Office Visit 12/30/2014 1:12p [facility]pc Lala Gimenez, 82535 578.9 Hospitalists M.DHanane 558.9 401.9 Office Visit 12/29/2014 1:12p [facility] Assoc,pc Lala Gimenez, 52617 578.9 Hospitalists M.DHanane 558.9 401.9 Office Visit 10/10/2014 11:00a [facility] Russell Godfrey M.D. 20260 721.0 Of [facility] 721.0 Office Visit 09/05/2014 1:40p [facility] Russell Hirsch 55710 300.11 Oumar Gilliam Office Visit 03/05/2014 3:40p [facility] Basil Kuo, 57271 401.9 At [facility]umar, [facility], [facility] 414.01 272.4 278.00 Office Visit 01/26/2014 9:10a [facility] Cherelle Root, 53160 786.50 Assoc, Hospitalists MSusan 784.0 401.9 300.00 Office Visit 01/25/2014 7:24a [facility], Justino De La Cruz, 10949 786.50 Hospitalists MSusan 784.0 300.00 401.9 Office Visit 01/25/2014 3:12p [facility] Talya Lozada, 11464 786.50 M.DHanane 794.31 794.39 414.9 Office Visit 01/24/2014 9:09a [facility]oc, Stefanie Gaston N.P. 85727 786.50 Hospitalists 784.0 401.9 300.00 Office Visit 11/15/2012 10:00a [facility] Diamond M.D. 57533 836.0 C.M.A. Office Visit 11/01/2012 1:45p [facility] Johnson 37418 727.09 C.M.ADaniele Olivo Office Visit 03/05/2012 12:21p [facility] [place] [address] 786.52 Assoc, Hospitalists 300.00 278.01 786.51 Office Visit 03/02/2012 12:20p [facility] Mesha, 11603 786.51 Assoc, Hospitalleyda Oseguera 300.00 278.01 Office Visit 10/22/2011 2:00p [facility] Duc Diamond M.D. 31610 726.64 Of C.M.A. Office Visit 05/18/2011 2:45p [facility] Hardy Johnson 82812 923.11 Of Nuris.Daniele Eli Office Visit 05/03/2011 8:00a [facility] Duc Diamond M.D. 08184 354.0 Of C.M.Terell 727.05 Office Visit 02/18/2010 9:30a [facility] Diamond M.D. 97250 844.9 C.M.AHanane Office Visit 08/25/2009 4:00p [facility] [place] 67050 844.9 Piyush Arnold R.S.A.-O Office Visit 08/05/2009 3:00p [facility] [place] 66732 836.3 C.Maikol Arnold R.S.A.-O 836.1 Office Visit 03/17/2009 3:30p [facility] Diamond M.D. 45469 726.5 C.M.A. 724.4 Office Visit 01/08/2009 12:30a [facility], Fabrizio Guidry, 12300 780.39 Hospitalists Oumar 784.0 Office Visit 01/07/2009 4:15a [facility] Assoc,ambrocio Guidry, 41663 780.39 Hospitalleyda Oseguera 784.0 Office Visit 01/06/2009 [facility] [address] 780.39 Assoc, Hospitalists Oumar 784.0 Plan of Care Future Appointment(s):07/07/2017 8:30 am - Karlee Lopez MD at [facility]
[2017-06-01 16:24] LABS: ABS Basophils 0.1 10^3/ul (0-0.2); ABS Eosinophils 0 10^3/ul (0-0.6); ABS Lymphocytes 1.3 10^3/ul (1.0-4.8); ABS Monocytes 0.6 10^3/ul (0-0.8); ABS Nucleated RBC 0 10^3/ul; Eosinophil % 0 % (0-6); Hematocrit 41 % (35-47); Hemoglobin 13.6 g/dl (12.0-16.0); Mean Corpuscular HGB Conc 33 g/dl (31-36); Mean Corpuscular Hemoglobin 31 pg (27-31); Mean Corpuscular Volume 92 fL (80-97); Mean Platelet Volume 8 um3 (7.4-10.4); Nucleated Red Blood Cells % 0; Platelet Count 311 10^3/ul (150-450); Red Blood Count 4.46 10^6/ul (4.0-5.4); Red Cell Distribution Width 15 % (10.5-15)
[2017-06-01 16:33] LABS: INR 0.88 (0.77-1.02)
[2017-06-01] MEDS ORDERED: diPHENhydraMINE IV* 50 MG/ML 1 ml VIAL (BENADRYL) IV ONE (16:34)
[2017-06-01] MEDS ORDERED: Metoclopramide IV* 5 MG/ML 2 ML VIAL IV ONE (16:34)
[2017-06-01 16:51] LABS: EGFR Non-African American 63.4 (>60)
[2017-06-01] MEDS ORDERED: Iohexol 350* (CONTRAST) 500 ML MDV IV ONE (16:54)
--- NOTE | 2017-06-01 17:15 | RAD ---
INDICATION: Weakness. Headaches. COMPARISON: CT brain November 04, 2016 TECHNIQUE: Noncontrast axial source images were acquired from the skull base to the vertex. FINDINGS: Ventricles/sulci: The ventricles and cisterns are normal in size and configuration for age. Brain parenchyma: There is no focal parenchymal finding, evidence of intracranial mass, or intracranial mass effect. Intracranial hemorrhage:None. Extra-axial spaces: There are no abnormal extra axial fluid collections or evidence of extra-axial mass. Calvarium: There is no calvarial fracture or other calvarial abnormality. Scalp: There is no evidence of scalp or extracalvarial soft tissue abnormality. Paranasal sinuses/mastoid: The paranasal sinuses and mastoid air cells are clear. Other: None. IMPRESSION: NEGATIVE EXAMINATION, UNCHANGED
--- NOTE | 2017-06-01 17:24 | RAD ---
INDICATION: 56-year-old with headaches. Prior CT angiographic evaluation COMPARISON: CT angiogram of the head and neck February 09, 2014 TECHNIQUE: Axial source images were acquired with coronal and sagittal reconstructions. CT angiographic technique was utilized with injection of 80 mL Omnipaque 300. FINDINGS: Aortic arch: There are no CT angiogram abnormalities of the arch or the great vessels arising from the arch. Right carotid: The common carotid artery, carotid bifurcation, extracranial portions of the internal carotid artery, carotid artery at the skull base, carotid siphon, and carotid termination appear widely patent. Mild calcific plaque formation is present at the carotid bifurcation. Left carotid:The common carotid artery, carotid bifurcation, extracranial portions of the internal carotid artery, carotid artery at the skull base, carotid siphon, and carotid termination appear widely patent. Mild calcific plaque formation is present at the carotid bifurcation.. Right middle and anterior cerebral arteries: There are no CT angiographic abnormalities of the middle or anterior cerebral arteries. Left middle and anterior cerebral arteries: There are no CT angiographic abnormalities of the middle or anterior cerebral arteries Right vertebral: The CT angiographic appearance of the vertebral artery is normal. Left vertebral: The CT angiographic appearance of the vertebral artery is normal. Basilar artery: The basilar artery and basilar tip appear normal. Posterior cerebral arteries: The distal distribution of the right and left posterior cerebral arteries is normal. [place]: The CT angiographic appearance of the [place] is normal. Source images show no evidence of mass or adenopathy within the neck. There are no focal brain parenchymal abnormalities or abnormal areas of enhancement. IMPRESSION: MILD BILATERAL CAROTID BIFURCATION PLAQUE FORMATION. NO EVIDENCE OF SIGNIFICANT STENOSIS, ANEURYSM, OR BRANCH OCCLUSION. CPT II Codes: 3100F RS
[2017-06-01] MEDS ORDERED: HYDROmorphone INJ* 2 MG/ML CARPUJECT SYRINGE IV SLOW PU ONE ×2 (17:50→20:12)
--- NOTE | 2017-06-01 18:58 | ED ---
Gurwinder Mckay Angela, scribed for Rob Lyles MD on 06/01/17 at 1547 . Hypertension - HPI Summary HPI Summary: This pt is a 56 y/o female presenting to [facility] c/o back pain x6 days, worsening since yesterday, with associated headache and HTN. Pt reports she fell 6 days ago on her buttocks and since then she has had back pain. She went to [facility] on 05/26/17 and had a cat scan of her lower back, which showed no fractures. Pt also c/o gradual onset of headache within the past 24 hours and hypertension. Pt believes her back pain is making her hypertensive. Her blood pressure at home today was 220/120. She also notes she is "dropping things" with left hand for the last few days, which began after onset of headache ( broke left arm in the summer December 26, 2016 and now has 2 screws on left shoulder done by Dr. Lopez). Pt additionally notes left two fingers are numb. Pt had cortisone injections yesterday (which usually work) with no relief. Denies abd pain, chest pain, SOB. Pt is currently on Losartan and diltiazem. She reports she is not taking any beta blockers because it makes her SOB. Denies hx of COPD. PMHx includes kidney stones, PE, coronary artery spasms, hypercoagulation syndrome. CVA x2. 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 Pt takes Lovenox 150 mg every night (for 2 years now). No hx of abdominal aortic aneurysm. Last MRI of head was 2 years ago. FHx: father had CVA and 1 year later. - History of Current Complaint Chief Complaint: EDHypertension Stated Complaint: HEADACHE Hx Obtained From: Patient Hx Last Menstrual Period: N/A Onset/Duration: Started Days Ago, Traumatic, Still Present Timing: Lasting Days Aggravating Factor(s): Other: - back pain Alleviating Factor(s): Nothing Associated Signs & Symptoms: Numbness - in left two fingers., Weakness - in left arm, Pain - back pain and headache - Allergies/Home Medications Allergies/Adverse Reactions: Allergies Allergy/AdvReac Type Severity Reaction Status Date / Time Bee Venom Allergy Severe Anaphylatic Verified 06/01/17 14:50 Shock Hydroxyzine [From Atarax] Allergy Mild Anxiety Verified 06/01/17 14:50 Amitriptyline Allergy See Comment Verified 06/01/17 14:50 CI Pigment Blue 63 Allergy seizure Verified 06/01/17 14:50 [From Cymbalta] Ciprofloxacin [From Cipro] Allergy Itching Verified 06/01/17 14:50 Duloxetine [From Cymbalta] Allergy seizure Verified 06/01/17 14:50 Sulfa Antibiotics Allergy Unknown Verified 06/01/17 14:50 Reaction Details Amoxicillin [From Augmentin] AdvReac Intermediate NAUSEA/VOMI Verified 06/01/17 14:50 T Clavulanic Acid AdvReac Intermediate NAUSEA/VOMI Verified 06/01/17 14:50 [From Augmentin] T almonds Allergy TROUBLE Uncoded 06/01/17 14:50 BREATHING VISTRAL Allergy Agitation Uncoded 06/01/17 14:50 PMH/Surg Hx/FS Hx/Imm Hx Endocrine/Hematology History: Reports: Hx Anticoagulant Therapy - Currently on Levonox, Hx Blood Disorders, Hx Thyroid Disease, Other Endocrine/Hematological Disorders - pt states blood disorder but unable to tell what its called Denies: Hx Diabetes, Hx Anemia Cardiovascular History: Reports: Hx Angina, Hx Coronary Artery Disease, Hx Embolism - PE's, Hx Hypercholesterolemia, Hx Hypertension, Other Cardiovascular Problems/Disorders - Coronary artery spasms Denies: Hx Congestive Heart Failure, Hx Myocardial Infarction, Hx Pacemaker/ ICD, Hx Valvular Heart Disease Respiratory History: Reports: Hx Pneumonia, Hx Pulmonary Embolism, Hx Seasonal Allergies Denies: Hx Asthma, Hx Chronic Bronchitis - Gets acute Bronchitis occasionally , Hx Chronic Obstructive Pulmonary Disease (COPD) GI History: Reports: Hx Gall Bladder Disease - Cholestectomy, Hx Gastroesophageal Reflux Disease, Hx Gastrointestinal Bleed, Hx Hiatal Hernia, Hx Ulcer, Other GI Disorders - Esophageal spasms Denies: Hx Jaundice History: Reports: Hx Kidney Stones Denies: Hx Dialysis, Hx Renal Disease Musculoskeletal History: Reports: Hx Arthritis, Hx Back Problems, Hx Bursitis, Hx Orthopedic Injury - Fractured bilateral wrists, left ankle, left arm, fingers , ribs, Hx Osteoporosis, Hx Tendonitis Sensory History: Reports: Hx Contacts or Glasses, Hx Legally Blind - L eye, Hx Vision Problem - blind in left eye, Other Sensory Impairments - 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 Denies: Hx Hearing Aid Opthamlomology History: Reports: Hx Contacts or Glasses, Hx Legally Blind - L eye, Hx Vision Problem - blind in left eye, Other Sensory Impairments - 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 Neurological History: Reports: Hx CVA, Hx Headaches, Hx Migraine, Hx Seizures - 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 ABDOMINAL LAPROSCOPIC Hx Anesthesia Reactions: No - Immunization History Date of Tetanus Vaccine: PT STATES UNSURE Date of Influenza Vaccine: NONE Infectious Disease History: No Infectious Disease History: Denies: Traveled Outside the [place] in Last 30 Days - Family History Known Family History: Positive: Cardiac Disease, Hypertension, Blood Disorder, Other - GERD - Social History Alcohol Use: None Hx Substance Use: No Substance Use Type: Reports: Marijuana Substance Use Comment - Amount & Last Used: occasional Hx Tobacco Use: No Smoking Status (MU): Never Smoked Tobacco Review of Systems Constitutional: Other - hypertension Negative: Fever, Chills Negative: Chest Pain Negative: Shortness Of Breath Musculoskeletal: Other - back pain Positive: Headache, Weakness - left arm, Numbness - left two fingers All Other Systems Reviewed And Are Negative: Yes Physical Exam - Summary Physical Exam Summary: Appearance: Well-appearing, Well-nourished. No acute distress. Skin: Warm. No rash. Eyes: Normal. EOMI. PERRL 3 mm and brisk. ENT: Normal Neck: Supple, nontender. Normal ROM. Respiratory: Clear to auscultation bilaterally. Cardiovascular: Normal, S1, S2. No murmurs. Abdomen: Soft, nontender Musculoskeletal: Normal, Strength/ROM Intact Neurological: A&Ox3. Mild weakness to hand bsw on the left. Minimal shakiness on finger to nose test on the left. No obvious dysmetria. No pronator drift. No facial asymmetry. Psychiatric: Normal Triage Information Reviewed: Yes Vital Signs On Initial Exam: Initial Vitals Temp Pulse Resp BP Pulse Ox 97.9 F 87 19 171/101 97 06/01/17 14:46 06/01/17 14:46 06/01/17 14:46 06/01/17 14:46 06/01/17 14:46 Vital Signs Reviewed: Yes - [place] Coma Scale Best Eye Response: 4 - Spontaneous Best Motor Response: 6 - Obeys Commands Best Verbal Response: 5 - Oriented Coma Scale Total: 15 Diagnostics - Vital Signs Vital Signs Temp Pulse Resp BP Pulse Ox 06/01/17 15:03 80 98 06/01/17 15:01 148/91 06/01/17 14:46 97.9 F 87 19 171/101 97 - Laboratory Lab Results: Lab Results 06/01/17 06/01/17 06/01/17 Range/Units 16:16 16:16 16:16 WBC 11.0 H (3.5-10.8) 10^3/ul RBC 4.46 (4.0-5.4) 10^6/ul Hgb 13.6 (12.0-16.0) g/dl Hct 41 (35-47) % MCV 92 (80-97) fL MCH 31 (27-31) pg MCHC 33 (31-36) g/dl RDW 15 (10.5-15) % Plt Count 311 (150-450) 10^3/ul MPV 8 (7.4-10.4) um3 Neut % (Auto) 81.7 (38-83) % Lymph % (Auto) 12.0 L (25-47) % [place] % (Auto) 5.8 (1-9) % Eos % (Auto) 0 (0-6) % Baso % (Auto) 0.5 (0-2) % Absolute Neuts (auto) 9.0 H (1.5-7.7) 10^3/ul Absolute Lymphs (auto) 1.3 (1.0-4.8) 10^3/ul Absolute Monos (auto) 0.6 (0-0.8) 10^3/ul Absolute Eos (auto) 0 (0-0.6) 10^3/ul Absolute Basos (auto) 0.1 (0-0.2) 10^3/ul Absolute Nucleated RBC 0 10^3/ul Nucleated RBC % 0 INR (Anticoag Therapy) 0.88 (0.77-1.02) APTT 29.9 (26.0-36.3) seconds Sodium 140 (133-145) mmol/L Potassium 3.9 (3.5-5.0) mmol/L Chloride 107 (101-111) mmol/L Carbon Dioxide 25 (22-32) mmol/L Anion Gap 8 (2-11) mmol/L BUN 23 (6-24) mg/dL Creatinine 0.92 (0.51-0.95) mg/dL Est GFR ( Amer) 81.5 (>60) Est GFR (Non-Af Amer) 63.4 (>60) BUN/Creatinine Ratio 25.0 H (8-20) Glucose 108 H (70-100) mg/dL Calcium 9.9 (8.6-10.3) mg/dL Total Bilirubin 0.30 (0.2-1.0) mg/dL AST 12 L (13-39) U/L ALT 18 (7-52) U/L Alkaline Phosphatase 53 (34-104) U/L Troponin I 0.00 (<0.04) ng/mL Total Protein 6.7 (6.4-8.9) g/dL Albumin 4.2 (3.2-5.2) g/dL Globulin 2.5 (2-4) g/dL Albumin/Globulin Ratio 1.7 (1-3) Result Diagrams: 06/01/17 16:16 06/01/17 16:16 Lab Statement: Any lab studies that have been ordered have been reviewed, and results considered in the medical decision making process. - CT Brain CT CT Interpretation: No Acute Changes - IMPRESSION: Negative examination, unchanged. Dr. Lyles has reviewed this radiology report. CT Interpretation Completed By: Radiologist CTA Head/Neck CT Interpretation: Positive (See Comments) - IMPRESSION: Mild bilateral carotid bifurcation plaque formation. No evidence of significant stenosis, aneurysm, or branch occlusion. Dr. Lyles has reviewed this radiology report. CT Interpretation Completed By: Radiologist - EKG 16:04 Cardiac Rate: NL EKG Rhythm: Sinus Rhythm - at 75 bpm - Additional Comments Diagnostic Additional Comments: MRI Brain, as read by radiologist: Pending official radiologist report, [facility] Hypertension Course/Dx - Course Assessment/Plan: pt complains of persistent weakness of L hand and COLVIN, MRI pending, pt care signed out to PM attending Dr. Ruffin - Diagnoses Provider Diagnoses: Hand weakness Discharge - Discharge Plan Condition: Guarded Disposition: OTHER Discharge Disposition Comment: pt care signed out to PM attending Referrals: Sandee Gonzalez MD [Primary Care Provider] - The documentation as recorded by the Gurwinder smith Angela accurately reflects the service I personally performed and the decisions made by me, Rob Lyles MD.
[2017-06-01] MEDS ORDERED: HYDROmorphone INJ* 2 MG/ML CARPUJECT SYRINGE IV SLOW PU PRN (20:02)
[2017-06-01] MEDS ORDERED: LORazepam INJ* 2 MG/ML 1 ML VIAL IV PUSH ONE (20:13)
--- NOTE | 2017-06-01 21:00 | RAD ---
INDICATION: Left hand numbness. Headaches. COMPARISON: CT brain same date; CTA of the head and neck same date. TECHNIQUE: sagittal T1 FLAIR, axial diffusion, axial T1 FLAIR, axial T2, axial T2 FLAIR, and SWI images were acquired. FINDINGS: Craniocervical junction: The craniocervical junction appears normal. Ventricles/sulci: The ventricles and cisterns are normal in size and configuration for age. Brain parenchyma: There are scant T2-weighted hyperintensities which may represent small areas of gliosis. There are no other focal parenchymal abnormalities. There is no evidence of intracranial mass or mass effect. The diffusion weighted images show no evidence of acute ischemia. Intracranial hemorrhage: There is no intracranial hemorrhage. Extra-axial spaces: There are no extra-axial fluid collections or masses. Orbits: There are no MR abnormalities of the orbital structures. Paranasal sinuses/mastoid: The paranasal sinuses are clear. The mastoid air cells are well aerated.. Vascular: No abnormalities are seen. Other: None IMPRESSION: SCANT T2-WEIGHTED HYPERINTENSITIES, OTHERWISE NEGATIVE.
[2017-06-01 22:32] VITALS: BP 131/74
== END 2017-06-01 22:29 | disposition home or self-care (01) ==
LOC: ED 14:45
DX: R53.1 Weakness (principal); M54.9 Dorsalgia, unspecified; R51 Headache
CPT/HCPCS: 36415; 70450; 70496; 70498; 70551; 80053; 84484; 85025; 85610; 85730; 93005; 96374; 96375; 99283; J1170; J1200; J2060; J2765; Q9967

== ENCOUNTER 2017-11-03 01:42 | Emergency (ER) | payer OTHER, MEDICARE ==
[2017-11-03] MEDS ORDERED: oxyCODONE/Acetamin 5/325 MG* TAB PO ONE (02:24)
[2017-11-03 03:45] VITALS: BP 115/77
--- NOTE | 2017-11-03 07:47 | RAD ---
HISTORY: fall, right leg injury COMPARISONS: None VIEWS: 2, Frontal and lateral views of the right leg FINDINGS: BONE DENSITY: Normal. BONES: There is no displaced fracture. JOINTS: There is no arthropathy. ALIGNMENT: There is no dislocation. SOFT TISSUES: There is soft tissue swelling of the anterior distal foreleg. . OTHER FINDINGS: None. IMPRESSION: SOFT TISSUE SWELLING. NO ACUTE OSSEOUS INJURY. IF SYMPTOMS PERSIST, RECOMMEND REPEAT IMAGING.
--- NOTE | 2017-11-14 07:28 | ED ---
Blaire Mckay Elizabeth, scribed for Palma Perez MD on 11/03/17 at 0319 . Lower Extremity - HPI Summary HPI Summary: This patient is a 56 year old F presenting to [facility] accompanied by her with a chief complaint of RLE pain since last night. The patient reports that last night she fell on a ramp while helping her dog and hit her RLE and arm. The patient rates the pain 4/10 in severity. Symptoms aggravated by nothing. Symptoms alleviated by nothing. Patient has hx of hypercoagulation and takes Lovenox daily. - History of Current Complaint Chief Complaint: EDExtremityLower Stated Complaint: RIGHT LEG INJURY Time Seen by Provider: 11/03/17 02:05 Hx Obtained From: Patient Hx Last Menstrual Period: N/A Onset of Pain: Days - 1 day ago, Post Accident Onset/Duration: Still Present - 1 day Severity Initially: Mild Severity Currently: Mild Pain Intensity: 4 Pain Scale Used: 0-10 Numeric Timing: Constant, Lasting Days - 1 day Location: Is Discrete @ - RLE Associated Signs And Symptoms: Positive: Swelling, Bruising Aggravating Factor(s): Nothing Alleviating Factor(s): Nothing - Allergies/Home Medications Allergies/Adverse Reactions: Allergies Allergy/AdvReac Type Severity Reaction Status Date / Time bee venom protein (honey bee) Allergy Severe Anaphylatic Verified 11/03/17 02:14 Shock duloxetine [From Cymbalta] Allergy Severe seizure Verified 11/03/17 02:14 amitriptyline Allergy S-T Verified 11/03/17 02:14 depression on EKG amoxicillin [From Augmentin] Allergy Nausea And Verified 11/03/17 02:14 Vomiting ciprofloxacin [From Cipro] Allergy Itching Verified 11/03/17 02:14 clavulanic acid Allergy Nausea And Verified 11/03/17 02:14 [From Augmentin] Vomiting hydroxyzine Allergy Anxiety Verified 11/03/17 02:14 Sulfa (Sulfonamide Allergy Unknown Verified 11/03/17 02:14 Antibiotics) Reaction Details almonds Allergy TROUBLE Uncoded 11/03/17 02:14 BREATHING PMH/Surg Hx/FS Hx/Imm Hx Endocrine/Hematology History: Reports: Hx Anticoagulant Therapy - Currently on Levonox, Hx Blood Disorders, Hx Thyroid Disease, Other Endocrine/Hematological Disorders - pt states blood disorder but unable to tell what its called Denies: Hx Diabetes, Hx Anemia Cardiovascular History: Reports: Hx Angina, Hx Coronary Artery Disease, Hx Embolism - PE's, Hx Hypercholesterolemia, Hx Hypertension, Other Cardiovascular Problems/Disorders - Coronary artery spasms Denies: Hx Congestive Heart Failure, Hx Myocardial Infarction, Hx Pacemaker/ ICD, Hx Valvular Heart Disease Respiratory History: Reports: Hx Pneumonia, Hx Pulmonary Embolism, Hx Seasonal Allergies Denies: Hx Asthma, Hx Chronic Bronchitis - Gets acute Bronchitis occasionally , Hx Chronic Obstructive Pulmonary Disease (COPD) GI History: Reports: Hx Gall Bladder Disease - Cholestectomy, Hx Gastroesophageal Reflux Disease, Hx Gastrointestinal Bleed, Hx Hiatal Hernia, Hx Ulcer, Other GI Disorders - Esophageal spasms Denies: Hx Jaundice History: Reports: Hx Kidney Stones Denies: Hx Dialysis, Hx Renal Disease Musculoskeletal History: Reports: Hx Arthritis, Hx Back Problems, Hx Bursitis, Hx Orthopedic Injury - Fractured bilateral wrists, left ankle, left arm, fingers , ribs, Hx Osteoporosis, Hx Tendonitis Sensory History: Reports: Hx Contacts or Glasses, Hx Legally Blind - L eye, Hx Vision Problem - blind in left eye, Other Sensory Impairments - 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 Denies: Hx Hearing Aid Opthamlomology History: Reports: Hx Contacts or Glasses, Hx Legally Blind - L eye, Hx Vision Problem - blind in left eye, Other Sensory Impairments - 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 Neurological History: Reports: Hx CVA, Hx Headaches, Hx Migraine, Hx Seizures - 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 ABDOMINAL LAPROSCOPIC Hx Anesthesia Reactions: No - Immunization History Date of Tetanus Vaccine: utd Date of Influenza Vaccine: fall 2016 Infectious Disease History: No Infectious Disease History: Denies: Traveled Outside the [place] in Last 30 Days - Family History Known Family History: Positive: Cardiac Disease, Hypertension, Blood Disorder, Other - GERD - Social History Alcohol Use: None Hx Substance Use: No Substance Use Type: Reports: None Substance Use Comment - Amount & Last Used: occasional Hx Tobacco Use: No Smoking Status (MU): Never Smoked Tobacco Review of Systems Negative: Fever Negative: Epistaxis Positive: Edema - in RLE, Other - pain in RLE Positive: Bruising - in RLE All Other Systems Reviewed And Are Negative: Yes Physical Exam - Summary Physical Exam Summary: VITAL SIGNS: Reviewed. GENERAL: ~Patient is a well-developed and nourished FEMALE who is lying comfortable in the stretcher. Patient is not in any acute respiratory distress. HEAD AND FACE: No signs of trauma. No ecchymosis, hematomas or skull depressions. No sinus tenderness. EYES: PERRLA, EOMI x 2, No injected conjunctiva, no nystagmus. EARS: Hearing grossly intact. Ear canals and tympanic membranes are within normal limits. MOUTH: Oropharynx within normal limits. NECK: Supple, trachea is midline, no adenopathy, no JVD, no carotid bruit, no c- spine tenderness, neck with full ROM. CHEST: Symmetric, no tenderness at palpation LUNGS: Clear to auscultation bilaterally. No wheezing or crackles. CVS: Regular rate and rhythm, S1 and S2 present, no murmurs or gallops appreciated. ABDOMEN: Soft, non-tender. No signs of distention. No rebound no guarding, and no masses palpated. Bowel sounds are normal. EXTREMITIES: FROM in all major joints, no cyanosis or clubbing. Swollen tender area over the anterior aspect of the right leg. Neurovascular exam is intact distally.+2 dorsalis pedis and +2 posterior tibialis pulses NEURO: Alert and oriented x 3. No acute neurological deficits. Speech is normal and follows commands. SKIN: Dry and warm Triage Information Reviewed: Yes Vital Signs On Initial Exam: Initial Vitals Temp Pulse Resp BP Pulse Ox 97.8 F 86 18 132/75 100 11/03/17 01:44 11/03/17 01:44 11/03/17 01:44 11/03/17 01:44 11/03/17 01:44 Vital Signs Reviewed: Yes Diagnostics - Vital Signs Vital Signs Temp Pulse Resp BP Pulse Ox 11/03/17 02:30 16 11/03/17 01:44 97.8 F 86 18 132/75 100 - Laboratory Lab Statement: Any lab studies that have been ordered have been reviewed, and results considered in the medical decision making process. - Radiology Lower Right Leg XR Xray Interpretation: No Acute Changes - No fractures. Radiology Interpretation Completed By: ED Physician - Dr. Perez, pending official report. Lower Extremity Course/Dx - Course Course Of Treatment: This patient is a 56 year old reporting RLE pain following a fall last night. Patient has hx of hypercoagulation and takes Lovenox daily. Physical exam reveals swollen tender area over the anterior aspect of the right leg. Right lower extremity XR, pending official report, reveals no fracture. Imaging and lab results discussed with patient. In the ED course the patient was given oxycodone. Patient will be discharged home with dx of contusion and hematoma to her right leg, prescription for oxycodone, and follow up from her primary care physician in 1-2 days. Patient is advised to consider halting Lovenox after discussing with Dr. Mason. The patient is agreeable with this plan. - Diagnoses Provider Diagnoses: Contusion, Hematoma Discharge - Sign-Out/Discharge Documenting (check all that apply): Discharge/Admit/Transfer - Discharge Plan Condition: Stable Disposition: HOME Discharge Disposition Comment: discharge home Prescriptions: oxyCODONE/Acetamin 5/325 MG* [Percocet 5/325 TAB*] 1 tab PO Q6H PRN #14 tab MDD 4 PRN Reason: Pain Patient Education Materials: Contusion in Adults (ED) Referrals: Sandee Gonzalez MD [Primary Care Provider] - 2 Days (follow up with primary care physician in 1-2 days) Additional Instructions: Consider halting Lovenox after discussing with Dr. Mason. Follow up with primary care physician in 1-2 days. Return to the emergency department with any new or worsening symptoms. The documentation as recorded by the Blaire smith Elizabeth accurately reflects the service I personally performed and the decisions made by , Palma Perez MD.
== END 2017-11-03 03:44 | disposition home or self-care (01) ==
LOC: ED 01:42
DX: S80.11XA Contusion of right lower leg, initial encounter (principal); W10.2XXA Fall (on)(from) incline, initial encounter; Y93.K9 Activity, other involving animal care; Y92.9 Unspecified place or not applicable; D68.59 Other primary thrombophilia; Z86.711 Personal history of pulmonary embolism; Z79.01 Long term (current) use of anticoagulants; Z88.8 Allergy status to other drugs, medicaments and biological substances; Z88.3 Allergy status to other anti-infective agents; Z88.2 Allergy status to sulfonamides
CPT/HCPCS: 99282; A9270-GY

== ENCOUNTER 2018-04-28 14:36 | Emergency (ER) | payer OTHER, MEDICARE ==
--- NOTE | 2018-04-28 14:55 | ED ---
Shortness of Breath - HPI Summary HPI Summary: This patient is a 57 year old F presenting to [facility] with a chief complaint of SOB since 1 week ago, worsening today. The patient rates the pain 5/10 in severity. Patient reports heavy CP worsened by deep breath, dizziness, vomiting (yesterday), and nausea (yesterday). Patient denies palpitations and constipation. She was diagnosed with PNA 3 weeks ago, for which she completed a course of antibiotics. However, she still reports not feeling well recently. Patient has not traveled recently. - History of Current Complaint Chief Complaint: EDShortnessOfBreath Time Seen by Provider: 04/28/18 14:41 Hx Obtained From: Patient Onset/Duration: Lasting Days - Earlier this week, Worse Since - Today Dyspnea At: Rest Aggrevating Factors: Deep Breaths Associated Signs & Symptoms: Chest Pain Unrelated to Cough, Edema - Dizziness, vomiting (yesterday), and nausea (yesterday). Denies palpitations and constipation. - Allergy/Home Medications Allergies/Adverse Reactions: Allergies Allergy/AdvReac Type Severity Reaction Status Date / Time bee venom protein (honey bee) Allergy Severe Anaphylatic Verified 04/06/18 11:32 Shock duloxetine [From Cymbalta] Allergy Severe seizure Verified 04/06/18 11:32 amitriptyline Allergy S-T Verified 04/06/18 11:32 depression on EKG amoxicillin [From Augmentin] Allergy Nausea And Verified 04/06/18 11:32 Vomiting ciprofloxacin [From Cipro] Allergy Itching Verified 04/06/18 11:32 clavulanic acid Allergy Nausea And Verified 04/06/18 11:32 [From Augmentin] Vomiting hydroxyzine Allergy Anxiety Verified 04/06/18 11:32 Sulfa (Sulfonamide Allergy Unknown Verified 04/06/18 11:32 Antibiotics) Reaction Details almonds Allergy TROUBLE Uncoded 03/30/18 13:59 BREATHING PMH/Surg Hx/FS Hx/Imm Hx Endocrine/Hematology History: Reports: Hx Anticoagulant Therapy - Currently on Levonox, Hx Blood Disorders, Hx Thyroid Disease, Other Endocrine/Hematological Disorders - pt states blood disorder but unable to tell what its called Denies: Hx Diabetes, Hx Anemia Cardiovascular History: Reports: Hx Angina, Hx Coronary Artery Disease, Hx Embolism - PE's, Hx Hypercholesterolemia, Hx Hypertension, Other Cardiovascular Problems/Disorders - Coronary artery spasms Denies: Hx Congestive Heart Failure, Hx Myocardial Infarction, Hx Pacemaker/ ICD, Hx Valvular Heart Disease Respiratory History: Reports: Hx Pneumonia, Hx Pulmonary Embolism, Hx Seasonal Allergies Denies: Hx Asthma, Hx Chronic Bronchitis - Gets acute Bronchitis occasionally , Hx Chronic Obstructive Pulmonary Disease (COPD) GI History: Reports: Hx Gall Bladder Disease - Cholestectomy, Hx Gastroesophageal Reflux Disease, Hx Gastrointestinal Bleed, Hx Hiatal Hernia, Hx Ulcer, Other GI Disorders - Esophageal spasms Denies: Hx Jaundice History: Reports: Hx Kidney Stones Denies: Hx Dialysis, Hx Renal Disease Musculoskeletal History: Reports: Hx Arthritis, Hx Back Problems, Hx Bursitis, Hx Orthopedic Injury - Fractured bilateral wrists, left ankle, left arm, fingers , ribs, sacrum fx, Hx Osteoporosis, Hx Tendonitis Sensory History: Reports: Hx Contacts or Glasses, Hx Legally Blind - L eye, Hx Vision Problem - blind in left eye, Other Sensory Impairments - 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 Denies: Hx Hearing Aid Opthamlomology History: Reports: Hx Contacts or Glasses, Hx Legally Blind - L eye, Hx Vision Problem - blind in left eye, Other Sensory Impairments - 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 Neurological History: Reports: Hx CVA, Hx Headaches, Hx Migraine, Hx Seizures - 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 ABDOMINAL LAPROSCOPIC. BONE CEMENT FOR SACRAL FRACTURE 10/31/2017 Hx Anesthesia Reactions: No - Immunization History Date of Tetanus Vaccine: utd Date of Influenza Vaccine: fall 2016 Infectious Disease History: No Infectious Disease History: Denies: Traveled Outside the [place] in Last 30 Days - Family History Known Family History: Positive: Cardiac Disease, Hypertension, Blood Disorder, Other - GERD - Social History Alcohol Use: None Hx Substance Use: No Substance Use Type: Reports: None Substance Use Comment - Amount & Last Used: occasional Hx Tobacco Use: No Smoking Status (MU): Never Smoked Tobacco Review of Systems Positive: Chest Pain - Worsened by deep breaths. Negative: Palpitations Positive: Shortness Of Breath - since 1 week ago, worsening today Positive: Vomiting. Negative: Other - Denies constipation Neurological: Other - Dizziness All Other Systems Reviewed And Are Negative: Yes Physical Exam - Summary Physical Exam Summary: VITAL SIGNS: Reviewed. GENERAL: Patient is a well-developed and nourished FEMALE who is lying comfortable in the stretcher. Patient is not in respiratory distress but able to speak in full sentences. HEAD AND FACE: No signs of trauma. No ecchymosis, hematomas or skull depressions. No sinus tenderness. EYES: PERRLA, EOMI x 2, No injected conjunctiva, no nystagmus. EARS: Hearing grossly intact. Ear canals and tympanic membranes are within normal limits. MOUTH: Oropharynx within normal limits. NECK: Supple, trachea is midline, no adenopathy, no JVD, no carotid bruit, no c- spine tenderness, neck with full ROM. CHEST: Symmetric, no tenderness at palpation LUNGS: Clear to auscultation bilaterally. No wheezing or crackles. CVS: Regular rate and rhythm, S1 and S2 present, no murmurs or gallops appreciated. ABDOMEN: Soft, non-tender. No signs of distention. No rebound no guarding, and no masses palpated. Bowel sounds are normal. EXTREMITIES: FROM in all major joints, no edema, no cyanosis or clubbing. NEURO: Alert and oriented x 3. No acute neurological deficits. Speech is normal and follows commands. SKIN: Dry and warm Triage Information Reviewed: Yes Vital Signs On Initial Exam: Initial Vitals Temp Pulse Resp BP Pulse Ox 98.1 F 77 18 164/95 100 04/28/18 14:38 04/28/18 14:38 04/28/18 14:38 04/28/18 14:38 04/28/18 14:38 Vital Signs Reviewed: Yes Diagnostics - Vital Signs Vital Signs Temp Pulse Resp BP Pulse Ox 04/28/18 14:38 98.1 F 77 18 164/95 100 - Laboratory Result Diagrams: 04/28/18 14:57 04/28/18 14:57 Lab Statement: Any lab studies that have been ordered have been reviewed, and results considered in the medical decision making process. - Radiology Chest X-Ray Radiology Interpretation Completed By: Radiologist Summary of Radiographic Findings: 15:48. NO EVIDENCE FOR ACTIVE CARDIOPULMONARY DISEASE. ED Physician has reviewed this imaging report. - EKG 15:05 Cardiac Rate: NL - 74 BPM EKG Rhythm: Sinus Rhythm Summary of EKG Findings: ST depressions from V2-V6 Course/Dx - Course Assessment/Plan: This patient is a 57 year old F presenting to [facility] with a chief complaint of SOB since 1 week ago, worsening today. The patient rates the pain 5/10 in severity. Patient reports heavy CP worsened by deep breath, dizziness, vomiting (yesterday), and nausea (yesterday). Patient denies palpitations and constipation. She was diagnosed with PNA 3 weeks ago, for which she completed a course of antibiotics. However, she still reports not feeling well recently. Patient has not traveled recently. Blood work without any significant abnormality except for creatinine 1, calcium is 10.8, troponin 0.00. D-dimer is isnt 200 therefore no suspicion for PE. Chest x-ray impression:no evidence for cardiopulmonary disease. In the ED course the patient was given morphine for the pain and Zofran for nausea. After these medications were given all her symptoms are resolved. Second troponin 4 hours apart is also 0.00. Therefore the patient will be discharged home with follow- up with primary care physician. The heart score is equal to 3. I discussed all the findings and test results with the patient. Patient was instructed to return to the emergency room immediately if any of the symptoms return or worsens. Plan of care was discussed with the patient and understands and agrees. All questions were answered at patient satisfaction. There were no further complaints or concerns. Lung exam before discharge: CTA B/L. Good air exchange. No wheezing or crackles heard. CVS: S1 and S2 present. No murmurs appreciated. Patient is alert and oriented x 3. Patient is hemodynamically stable. Patient will be discharged home with follow up PCP in the next 2-3 days - Diagnoses Provider Diagnoses: Atypical chest pain Discharge - Sign-Out/Discharge Documenting (check all that apply): Patient Departure - D/C - Discharge Plan Condition: Stable Disposition: HOME Patient Education Materials: Chest Pain (ED) Referrals: Sandee Gonzalez MD [Primary Care Provider] - 3 Days Additional Instructions: RETURN THE ED FOR ANY WORSENING OR NEW SYMPTOMS. FOLLOW UP WITH YOUR PRIMARY CARE PROVIDER WITHIN 3 DAYS. - Billing Disposition and Condition Condition: STABLE Disposition: Home - Attestation Statements Document Initiated by Ronalde: Yes Documenting Scribe: Carroll Mccoy Provider For Whom Scribe is Documenting (Include Credential): Darryl Graves MD Scribe Attestation: ICarroll, scribed for Darryl Graves MD on 04/28/18 at 2119. Scribe Documentation Reviewed: Yes Provider Attestation: The documentation as recorded by the Carroll smith accurately reflects the service I personally performed and the decisions made by me, Darryl Graves MD Status of Scribe Document: Viewed
[2018-04-28 15:12] LABS: ABS Basophils 0.1 10^3/ul (0-0.2); ABS Eosinophils 0 10^3/ul (0-0.6); ABS Lymphocytes 1.9 10^3/ul (1.0-4.8); ABS Monocytes 0.7 10^3/ul (0-0.8); ABS Neutrophils 6.8 10^3/ul (1.5-7.7); ABS Nucleated RBC 0 10^3/ul; Eosinophil % 0.3 %; Hematocrit 44 % (35-47); Hemoglobin 14.9 g/dl (12.0-16.0); Lymphocyte % 19.8 %; Mean Corpuscular HGB Conc 34 g/dl (31-36); Mean Corpuscular Hemoglobin 30 pg (27-31); Mean Corpuscular Volume 89 fL (80-97); Nucleated Red Blood Cells % 0; Platelet Count 362 10^3/ul (150-450); Red Cell Distribution Width 14 % (10.5-15); White Blood Count 9.5 10^3/ul (3.5-10.8)
[2018-04-28 15:27] LABS: EGFR Non-African American 57.4 (>60)
[2018-04-28 15:37] LABS: INR 0.94 (0.77-1.02)
[2018-04-28] MEDS ORDERED: Ondansetron INJ* 2 MG/ML VIAL IV ONE (18:12)
[2018-04-28] MEDS ORDERED: Morphine VIAL* 4 MG/ML VIAL (1 ml vial) IV ONE (18:24)
[2018-04-28 19:45] VITALS: BP 139/92
== END 2018-04-28 19:47 | disposition home or self-care (01) ==
LOC: ED 14:36
DX: R07.89 Other chest pain (principal); R05 Cough; R60.9 Edema, unspecified; R42 Dizziness and giddiness; Z79.01 Long term (current) use of anticoagulants; Z88.0 Allergy status to penicillin; Z88.2 Allergy status to sulfonamides; Z88.8 Allergy status to other drugs, medicaments and biological substances; Z88.1 Allergy status to other antibiotic agents; Z91.030 Bee allergy status
CPT/HCPCS: 36415; 71046; 80053; 82550; 82553; 83605; 83880; 84484; 85025; 85379; 85610; 85730; 86140; 87040; 93005; 96374; 96375; 99284; J2270; J2405

== ENCOUNTER 2018-12-10 11:04 | Emergency (ER) | payer OTHER, MEDICARE ==
--- OUTSIDE RECORDS SUMMARY | 2018-12-10 11:18 | XMS REPORT | Continuity of Care Document ---
:1960 External Reference #:[id number] Author Name Marzena Andrade O.D. Address [address] [place] [address] Care Team Providers Name Role Phone Sandee Gonzalez M.D. 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 Family History Date Family Member(s) Observation Comments Father No Current Problems Mother No Current Problems Social History Type Date Description Comments Sex Unknown Marital Status Legal Status: Occupation [employer] Work Status Retired ETOH Use Denies alcohol use Tobacco Use Start: Unknown Patient has never smoked Recreational Drug Use Denies Drug Use Smoking Status Reviewed: 12/05/18 Patient has never smoked Allergies, Adverse Reactions, Alerts Active Allergies Reaction Severity Comments Date Augmentin 12/01/2018 Cymbalta 12/01/2018 Sulfa Antibiotics 12/01/2018 Vistaril 12/01/2018 Bee Stings 12/01/2018 Almonds 12/01/2018 Medications Active Medications SIG Qnty Indications Ordering Provider Date Buspirone HCL Take 1 To 2 Unknown 5mg Tablets Tablets By Mouth Twice Daily as Directed For Anxiety Maximum Daily Dose 4 Omeprazole Unknown 20mg Capsules Rosuvastatin Calcium Unknown 20mg Tablets Levothyroxine Sodium Unknown 50mcg Tablets Gralise Unknown 600mg Tablets Diltiazem HCL ER Unknown 240mg Caps ER 24HR Aspirin Low Dose 1 by mouth every Unknown 81mg day Tablets DR Medications Administered in Office Medication SIG Qnty Indications Ordering Provider Date Crizal Sp James 02/02/2002 Injection Procedures Date Code Description Status 12/01/2018 94014 New Patient Comprehensive Exam Completed 07/08/2004 32074 Determination Of Refractive State Completed 07/08/2004 31209 Est Patient Comprehensive Exam Completed 02/02/2002 113 Crizal Completed Plan of Treatment Future Appointment(s):12/15/2018 3:00 pm - Tracey Martin O.D. at [facility] MD, 2018 - Marzena Andrade O.D.H43.811 Vitreous degeneration, right eyeComments:Smoking can increase the risk of developing or worsening any eye related disease, as well as affect your overall health. If you are a smoker , we strongly recommend that you quit.If you are not a smoker, we strongly recommend that you do not start. You have a Posterior Vitreous Detachment in your right eye. If you have any changes in your floaters or flashing lights, please contact this office.Follow up:3 WEEKS [id number] Lattice degeneration of retina, bilateral
--- OUTSIDE RECORDS SUMMARY | 2018-12-10 11:18 | XMS REPORT | Continuity of Care Document ---
:1960 External Reference #:[id number] Author Name Marzena Andrade O.D. Address [address] [place] [address] Care Team Providers Name Role Phone Sandee Gonzalez M.D. 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 Onset: 12/01/2018 Family History Date Family Member(s) Observation Comments Father No Current Problems Mother No Current Problems Social History Type Date Description Comments Sex Unknown Marital Status Legal Status: Occupation Em[employer] Work Status Retired ETOH Use Denies alcohol use Tobacco Use Start: Unknown Patient has never smoked Recreational Drug Use Denies Drug Use Smoking Status Reviewed: 12/01/18 Patient has never smoked Allergies, Adverse Reactions, [...] 02/02/2002 Injection Procedures Date Code Description Status 07/08/2004 63590 Determination Of Refractive State Completed 07/08/2004 38033 Est Patient Comprehensive Exam Completed 02/02/2002 113 Crizal Completed Plan of Treatment 12/01/2018 - Marzena Andrade O.D.H43.811 Vitreous degeneration, right eyeComments:You have Vitreous Floaters. If you have any changed in your floaters or flashing lights, please contact this office.Follow up:2 WEEKS DFE OR SOONER [id number] Lattice degeneration of retina, bilateralComments: Smoking can increase the risk of developing or worsening any eye related disease , as well as affect your overall health. If you are a smoker, we strongly recommend that you quit.If you are not a smoker, we strongly recommend that you do not start.
--- NOTE | 2018-12-10 11:29 | ED ---
Allergic Reaction/Systemic - HPI Summary HPI Summary: Pt is a 58 y/o F presenting to the ED brought in by EMS for an allergic reaction. She states [facility] [place] [facility] [employer] [facility] when she was stung by a bee. She immediately went to the EMS tent, applied ice and took out the stinger, and was given Epinephrine and an Albuterol tx. She states it helped , but she reports some current throat swelling and dryness along with diaphoresis. She denies CP. Vital signs while in room: BP 157/94, HR 97bpm, SaO2 97% on room air with 22 respirations per minute. Home Medications Medication Instructions Recorded Confirmed Type Levothyroxine TAB* [Synthroid 25 50 mcg PO QAM 12/29/14 09/20/18 History MCG TAB*] Enoxaparin(*) [Lovenox(*)] 140 mg SUBCUT QPM 08/06/15 09/20/18 History Losartan Potassium [Cozaar] 100 mg PO BEDTIME 08/08/16 09/20/18 History Gabapentin [Gralise] 300 mg PO BEDTIME 09/15/16 09/20/18 History Cholecalciferol (Vitamin D3) 5,000 unit PO DAILY PRN 05/02/17 09/20/18 History [Vitamin D3] Nerve Tonic 6 tab SL DAILY PRN 05/02/17 09/20/18 History Omeprazole [Prilosec] 20 mg PO DAILY 05/02/17 09/20/18 History Aspirin EC TAB* [Ecotrin EC Low 81 mg PO DAILY 07/22/17 09/20/18 History Dose 81 MG*] Multivitamins/Minerals TAB* 1 tab PO DAILY 07/22/17 09/20/18 History [Theragran/minerals TAB*] Diltiazem CD CAP* [Cardizem CD 240 mg PO DAILY 03/30/18 09/20/18 History CAP*] EPINEPHrine [Epipen 2-Yves] 0.3 mg IM SEE INSTRUCTIONS PRN 03/30/18 09/20/18 History Magnesium Oxide [Magnesium] 500 mg PO DAILY 03/30/18 09/20/18 History Cyclobenzaprine TAB* [Flexeril 10 10 mg PO BEDTIME 09/20/18 09/20/18 History MG TAB*] Doxylamine Succinate [Unisom] 25 mg PO BEDTIME PRN 09/20/18 09/20/18 History - History of Current Complaint Chief Complaint: EDAllergicReaction Time Seen by Provider: 12/10/18 11:15 Hx Obtained From: Patient Hx Last Menstrual Period: N/A Onset/Duration: Sudden Onset, Started hours ago, Resolved Timing: Intermittent, Lasting Minutes Severity Initially: Moderate Severity Currently: Mild Pain Intensity: 3 Pain Scale Used: 0-10 Numeric Character: Swelling, Pain Aggravating Factor(s): Other - bee sting Alleviating Factor(s): Cold, Epinephrine, Other - albuterol tx - EMS Associated Signs And Symptoms: Positive: Diaphoresis, Hoarseness, Throat Tightening. Negative: Chest Pain - Related Hx Possible Reaction To: Insect - bee Prior Episode Dx as Allergic Reaction to: Same/Other: same - Allergies/Home Medications Allergies/Adverse Reactions: Allergies Allergy/AdvReac Type Severity Reaction Status Date / Time bee venom protein (honey bee) Allergy Severe Anaphylatic Verified 04/06/18 11:32 Shock duloxetine [From Cymbalta] Allergy Severe seizure Verified 04/06/18 11:32 amitriptyline Allergy S-T Verified 04/06/18 11:32 depression on EKG amoxicillin [From Augmentin] Allergy Nausea And Verified 04/06/18 11:32 Vomiting ciprofloxacin [From Cipro] Allergy Itching Verified 04/06/18 11:32 clavulanic acid Allergy Nausea And Verified 04/06/18 11:32 [From Augmentin] Vomiting hydroxyzine Allergy Anxiety Verified 04/06/18 11:32 Sulfa (Sulfonamide Allergy Unknown Verified 04/06/18 11:32 Antibiotics) Reaction Details almonds Allergy TROUBLE Uncoded 03/30/18 13:59 BREATHING PMH/Surg Hx/FS Hx/Imm Hx Previously Healthy: No Endocrine/Hematology History: Reports: Hx Anticoagulant Therapy - Currently on Levonox, Hx Blood Disorders, Hx Thyroid Disease, Other Endocrine/Hematological Disorders - pt states blood disorder but unable to tell what its called Denies: Hx Diabetes, Hx Anemia Cardiovascular History: Reports: Hx Angina, Hx Coronary Artery Disease, Hx Embolism - PE's, Hx Hypercholesterolemia, Hx Hypertension, Other Cardiovascular Problems/Disorders - Coronary artery spasms Denies: Hx Congestive Heart Failure, Hx Myocardial Infarction, Hx Pacemaker/ ICD, Hx Valvular Heart Disease Respiratory History: Reports: Hx Pneumonia, Hx Pulmonary Embolism, Hx Seasonal Allergies Denies: Hx Asthma, Hx Chronic Bronchitis - Gets acute Bronchitis occasionally , Hx Chronic Obstructive Pulmonary Disease (COPD) GI History: Reports: Hx Gall Bladder Disease - Cholestectomy, Hx Gastroesophageal Reflux Disease, Hx Gastrointestinal Bleed, Hx Hiatal Hernia, Hx Ulcer, Other GI Disorders - Esophageal spasms Denies: Hx Jaundice History: Reports: Hx Kidney Stones Denies: Hx Dialysis, Hx Renal Disease Musculoskeletal History: Reports: Hx Arthritis, Hx Back Problems, Hx Bursitis, Hx Orthopedic Injury - Fractured bilateral wrists, left ankle, left arm, fingers , ribs, sacrum fx, Hx Osteoporosis, Hx Tendonitis Sensory History: Reports: Hx Contacts or Glasses, Hx Legally Blind - L eye, Hx Vision Problem - blind in left eye, Other Sensory Impairments - 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 Denies: Hx Hearing Aid Opthamlomology History: Reports: Hx Contacts or Glasses, Hx Legally Blind - L eye, Hx Vision Problem - blind in left eye, Other Sensory Impairments - 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 Neurological History: Reports: Hx CVA, Hx Headaches, Hx Migraine, Hx Seizures - 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 ABDOMINAL LAPROSCOPIC. BONE CEMENT FOR SACRAL FRACTURE 10/31/2017 Hx Anesthesia Reactions: No - Immunization History Date of Tetanus Vaccine: utd Date of Influenza Vaccine: fall 2016 Infectious Disease History: No Infectious Disease History: Denies: Traveled Outside the [place] in Last 30 Days - Family History Known Family History: Positive: Unknown - paternal hx unknown, Cardiac Disease, Hypertension, Blood Disorder, Other - GERD, alcoholism - Social History Alcohol Use: None Hx Substance Use: Yes Substance Use Type: Reports: Marijuana Substance Use Comment - Amount & Last Used: occasional Hx Tobacco Use: No Smoking Status (MU): Never Smoked Tobacco Review of Systems Positive: Skin Diaphoresis Positive: Other - dry throat, throat edema Negative: Chest Pain Positive: Edema Positive: Other - bee sting site All Other Systems Reviewed And Are Negative: Yes Physical Exam - Summary Physical Exam Summary: Appearance: Ill-appearing, moderate pain distress, well-nourished, voice is slightly hoarse Skin: Warm, color reflects adequate perfusion, diaphoretic Head: Normal Head/Face inspection, atraumatic Eyes: Conjunctiva clear ENT: Pharynx is erythematous but there is no uvular edema Neck: Supple, no nodes, no JVD Respiratory: Lungs clear, decreased breath sounds, no respiratory distress Cardio: RRR, No murmur, pulses normal, brisk capillary refill Abdomen: Soft, nontender Bowel sounds: Present Musculoskeletal: Strength Intact/ROM intact, no calf tenderness, no edema. Psychological: Normal Neuro: Alert, muscle tone normal, no focal deficit Triage Information Reviewed: Yes Vital Signs On Initial Exam: Initial Vitals Temp Pulse Resp BP Pulse Ox 98.4 F 98 18 157/94 99 12/10/18 11:06 12/10/18 11:06 12/10/18 11:06 12/10/18 11:06 12/10/18 11:06 Vital Signs Reviewed: Yes Diagnostics - Vital Signs Vital Signs Temp Pulse Resp BP Pulse Ox 12/10/18 11:10 99 99 12/10/18 11:08 99 157/94 97 12/10/18 11:06 98.4 F 98 18 157/94 99 - Laboratory Result Diagrams: 12/10/18 12:05 12/10/18 12:05 Lab Statement: Any lab studies that have been ordered have been reviewed, and results considered in the medical decision making process. - EKG 1335 Cardiac Rate: NL - 95bpm EKG Rhythm: Sinus Rhythm ST Segment: Non-Specific Ectopy: None Summary of EKG Findings: An EKG at 1335 reveals NSR at 95bpm with nml AV/IV CT, prolonged QTc (509), and nml axis. No acute changes. No change from 04/28/18. ED MD has reviewed and interpreted this EKG. Allergic Reaction Course/Dx - Course Course Of Treatment: Pt is a 58 y/o F presenting to the ED brought in by EMS for an allergic reaction to a bee sting. EMS tx helped, but she reports some current throat swelling and dryness along with diaphoresis. She denies CP. Vital signs while in room: BP 157/94, HR 97bpm, SaO2 97% on room air with 22 respirations per minute. On exam, pt's voice is slightly hoarse, she is diaphoretic, and her pharynx is erythematous but there is no uvular edema. An EKG at 1335 reveals NSR at 95bpm with nml AV/IV CT, prolonged QTc (509), and nml axis. No acute changes. No change from 04/28/18. ED MD has reviewed and interpreted this EKG. Pt has been stable during her time in the ED. She will be sent home with dx of anaphylaxis. She is stable and agreeable with this plan. - Diagnoses Provider Diagnoses: Anaphylaxis Discharge - Sign-Out/Discharge Documenting (check all that apply): Patient Departure Patient Received Moderate/Deep Sedation with Procedure: No - Discharge Plan Condition: Stable Disposition: HOME Patient Education Materials: Insect Bite or Sting (ED), Anaphylaxis (ED) Referrals: Sandee Gonzalez MD [Primary Care Provider] - 2 Days Additional Instructions: You were given benadryl 50mg IV, Solumedrol 125mg IV, pepcid 20mg IV and a duoneb in the ER. Your symptoms improved. Please return to the ER if you have any new or worsening symptoms. - Attestation Statements Document Initiated by Scribe: Yes Documenting Scribe: Rhonda Reynolds Provider For Whom Roc is Documenting (Include Credential): Dr. Charissa Gold MD. Scribe Attestation: Rhonda Mckay, scribed for Dr. Charissa Gold MD. on 12/10/18 at 1353. Status of Scribe Document: Ready
[2018-12-10] MEDS ORDERED: NS 0.9% 1000 ML** 2,000 ML IV ONE (11:38)
[2018-12-10] MEDS ORDERED: Famotidine IV* 10 MG/ML 2 ML (20 mg) IV ONE (11:41)
[2018-12-10] MEDS ORDERED: Albuterol/Ipratropium NEB.SOL* Albuterol 2.5 MG/Ipratropium 0.5 MG 3 ML INH ONE (11:41)
[2018-12-10] MEDS ORDERED: diPHENhydraMINE IV* 50 MG/ML 1 ml VIAL (BENADRYL) IV ONE (11:41)
[2018-12-10] MEDS ORDERED: methylPREDNISolone 125 MG* 2 ML VIAL IV ONE (11:42)
[2018-12-10] MEDS ORDERED: diPHENhydraMINE IV* 50 MG/ML 1 ml VIAL (BENADRYL) ONE (12:03)
[2018-12-10 12:15] LABS: ABS Basophils 0.1 10^3/ul (0-0.2); ABS Eosinophils 0.2 10^3/ul (0-0.6); ABS Lymphocytes 3.4 10^3/ul (1.0-4.8); ABS Monocytes 0.8 10^3/ul (0-0.8); ABS Neutrophils 4.2 10^3/ul (1.5-7.7); Eosinophil % 2.7 %; Hematocrit 39 % (35-47); Hemoglobin 13.2 g/dL (12.0-16.0); Lymphocyte % 38.9 %; Mean Corpuscular HGB Conc 34 g/dL (31-36); Mean Corpuscular Hemoglobin 30 pg (27-31); Mean Corpuscular Volume 90 fL (80-97); Mean Platelet Volume 7.8 fL (7.4-10.4); Platelet Count 341 10^3/uL (150-450); Red Blood Count 4.35 10^6 /uL (3.70-4.87); Red Cell Distribution Width 14 % (10-15); White Blood Count 8.6 10^3/uL (3.5-10.8)
[2018-12-10 12:30] LABS: Albumin 4.2 g/dL (3.2-5.2); Albumin/Globulin Ratio 1.7 (1-3); BUN/Creatinine Ratio 14.2 (8-20); C Reactive Protein 5.87 mg/L (<8.01); EGFR African American 64.7 (>60); EGFR Non-African American 53.4 (>60); Globulin 2.5 g/dL (2-4); Potassium 3.5 mmol/L (3.5-5.0); Total Bilirubin 0.3 mg/dL (0.2-1.0); Total Protein 6.7 g/dL (6.4-8.9)
[2018-12-10 13:46] VITALS: BP 133/75
== END 2018-12-10 14:21 | disposition home or self-care (01) ==
LOC: ED 11:04
DX: T78.2XXA Anaphylactic shock, unspecified, initial encounter (principal); Y92.9 Unspecified place or not applicable; Z79.82 Long term (current) use of aspirin; Z79.899 Other long term (current) drug therapy; Z88.1 Allergy status to other antibiotic agents; Z88.2 Allergy status to sulfonamides; Z88.8 Allergy status to other drugs, medicaments and biological substances; Z79.01 Long term (current) use of anticoagulants; I25.119 Atherosclerotic heart disease of native coronary artery with unspecified angina pectoris; E78.00 Pure hypercholesterolemia, unspecified; I10 Essential (primary) hypertension; Z86.711 Personal history of pulmonary embolism
CPT/HCPCS: 36415; 80053; 85025; 86140; 93005; 96361; 96374; 96375; 99283; A9270-GY; J1200; J2930

== ENCOUNTER 2019-03-21 14:06 | Emergency (ER) | payer OTHER, MEDICARE ==
--- OUTSIDE RECORDS SUMMARY | 2019-03-21 14:42 | XMS REPORT | Summary of Care ---
:1960 Author Organization [facility] Address [address] [facility] [place] [address] Care Team Providers Name Role Phone Sandee Gonzalez MD Primary Care Provider Reason for Visit Reason Comments Follow Up MRI results in Epic. Encounter Details Date Type Department Care Team Description 01/29/2019 Office Visit [facility] - Ady Urias MD Spinal stenosis of lumbar region with radiculopathy (Primary Dx); [address] Closed fracture of sacrum and coccyx, initial encounter ([facility]) [address] [facility] [address] [place], [place] [address] [place] [id number] [phone] Allergies Active Allergy Reactions Severity Noted Date Comments Augmentin GI Reaction High 01/31/2013 Ciprofloxacin Hcl Hives 03/31/2015 She couldn't breath Duloxetine Hcl Other High 01/31/2013 Seizures Hydroxyzine Other High 01/31/2013 agitated/angry documented as of this encounter (statuses as of 01/29/2019) Medications Medication Sig Dispensed Refills Start Date End Date Status lisinopril (PRINIVIL, Take 20 mg by 0 Active ZESTRIL) 20 MG Oral mouth DAILY. Tab atorvastatin (LIPITOR) Take 20 mg by 0 Active 20 MG Oral Tab mouth DAILY. carisoprodol (SOMA) Take 350 mg by 0 Active 350 MG Oral Tab mouth FOUR TIMES DAILY. Diltiazem HCl 120 MG Take 240 mg by 0 Active Oral Tab mouth. Gabapentin, PHN, Take 1,200 mg by 0 Active (GRALISE) 600 MG Oral mouth. Tab Omeprazole 20 MG Oral Take by mouth. 0 Active Tab EC Pseudoephedrine-APAP Take 81 mg by 0 Active 30-500 MG Oral Tab mouth. enoxaparin (LOVENOX) Inject 120 mg 0 Active 150 MG/ML Subcutaneous beneath the Solution skin. Rosuvastatin Calcium Take by mouth 0 Active (CRESTOR) 20 MG Oral DAILY. Tab losartan (COZAAR) 50 Take 50 mg by 0 Active MG Oral Tab mouth DAILY. Aspirin 81 MG Oral Tab Take by mouth. 0 Active EC Magnesium 500 MG Oral Take by mouth. 0 Active Cap HYDROcodone-acetaminop Take 1 Tab by 28 Tab 0 01/29/2019 02/05/2019 Active hen (NORCO) 7.5-325 MG mouth EVERY SIX Oral Tab HOURS NEEDED (pain) for up to 7 days. Max Daily Amount: 4 Tabs. documented as of this encounter (statuses as of 01/29/2019) Active Problems Problem Noted Date Fx sacrum/coccyx-closed 01/10/2019 Closed fracture of sacrum with routine healing 12/11/2018 Closed fracture of sacrum with routine healing 09/28/2017 Lateral epicondylitis of right elbow 06/01/2016 Arm pain, left 03/10/2016 Left arm numbness 03/31/2015 Brachial neuritis or radiculitis NOS 11/19/2014 Stroke syndrome 09/09/2014 Neck pain 01/31/2013 Lumbosacral spondylosis without myelopathy 01/31/2013 Arthropathy, unspecified, other specified sites 01/31/2013 documented as of this encounter (statuses as of 01/29/2019) Immunizations Name Administration Dates Next Due Depo Medrol (30mg) 01/31/2013 Depo Medrol (40mg) 06/01/2016 Depo Medrol (80mg) 06/28/2016 documented as of this encounter Social History Tobacco Use Types Packs/Day Years Used Date Never Smoker Smokeless Tobacco: Never Used Alcohol Use Drinks/Week oz/Week Comments Yes rare Sex Assigned at Date Recorded Not on file Job Start Date Occupation Industry Not on file Not on file Not on file Travel History Travel Start Travel End No recent travel history available. documented as of this encounter Last Filed Vital Signs Vital Sign Reading Time Taken Comments Blood Pressure 148/107 01/29/2019 10:46 AM EDT Pulse 96 01/29/2019 10:46 AM EDT Temperature - - Respiratory Rate - - Oxygen Saturation - - Inhaled Oxygen Concentration - - Weight 95.3 kg (210 lb) 01/29/2019 10:46 AM EDT Height 154.9 cm (5' 1") 01/29/2019 10:46 AM EDT Body Mass Index 39.68 01/29/2019 10:46 AM EDT documented in this encounter Progress Notes Ady Urias MD - 01/29/2019 11:00 AM EDT Name: Nichole Boggs : 1960 Date of Service: 01/29/2019 Chief Complaint Patient presents with Follow Up MRI results in [facility]. Generally improving slowly. Rates pain at about 60% improvement compared to initially approximately2 months ago. Has continued low back pain but also some increase in right radicular pain. Also describes what sounds like it may possibly be left sided radicular pain into the groin. MRI reviewed. Again there is no evidence of acute sacral insufficiency fracture but symptoms consistent with that diagnosis. Also MRI consistent with stenosis with radicular component. No significant central stenosis. No large disc herniation seen. Physical exam shows a healthy-appearing woman in no acute distress. Alert and oriented. Tender lower back midline. Decreased range of motion. Flexion causes pain. Straight leg raising negative. No focal motor or sensory abnormalities. Impression: Improving as above. Persistent right-sided radicular pain. Plan: Will decrease Ten Sleep to 7.5/325 today and down to 5/325 next week. After this, will plan to discontinue. Will also schedule transforaminal epidurals right L4-5 and L5-S1. Will discontinue Lovenox prior to injections. ICD-9-CM ICD-10-CM 1. Spinal stenosis of lumbar region with radiculopathy 724.02 M48.061 724.4 M54.16 2. Closed fracture of sacrum and coccyx, initial encounter ([facility]) 805.6 S32.10XA S32.2XXA Author: Ady Urias MD 01/29/2019 11:04 This record contains sections created with voice recognition software. It has been electronically signed. A reasonable attempt at proofreading has been made. Please call with any questions or corrections. documented in this encounter Plan of Treatment Health Maintenance Due Date Last Done Comments MEDICARE ANNUAL WELLNESS 1960 VISIT PAP SMEAR 1960 DEPRESSION SCREENING 1973 HIV SCREENING 1976 HEPATITIS C SCREENING 2001 MAMMOGRAM (SCREENING) 2001 LIPID DISORDER SCREENING 09/27/2002 09/27/2001, 01/29/1999, 04/30/1998, Additional history exists COLONOSCOPY SCREENING 12/06/2011 ZOSTER IMMUNIZATION SERIES 12/06/2011 (1 of 2) DIABETES SCREENING 11/01/2018 11/01/2017 INFLUENZA VACCINE (#1) 2019 HPV IMMUNIZATION SERIES Aged Out No longer eligible based on patient's age to complete this topic MENINGOCOCCAL VACCINE IMM Aged Out No longer eligible based on patient's age to complete this topic PNEUMOCOCCAL 0-64 YRS Aged Out No longer eligible based on patient's age to complete this topic documented as of this encounter Results Not on filedocumented in this encounter Visit Diagnoses Diagnosis Spinal stenosis of lumbar region with radiculopathy - Primary Spinal stenosis, lumbar region, without neurogenic claudication Closed fracture of sacrum and coccyx, initial encounter ([facility]) documented in this encounter Insurance Payer Benefit Plan / Subscriber ID Effective Dates Phone Address Type Group [employer] COMMERCIAL AETNA ALLY xxxxxxxxxx 2016-Present [employer] [place] MEDICARE MEDICARE PART A xxxxxxxxxxx 2014-Present Medicare & B Guarantor Name Account Type Relation to Date of Phone Billing Address Patient Jaclyn Boggs Personal/Famil [phone] ([address]) [address] [phone] [place], [place] ([place]) [id number] documented as of this encounter
--- NOTE | 2019-03-21 17:19 | ED ---
Lower Extremity - HPI Summary HPI Summary: Patient is a 58-year-old female who presents emergency department for left calf times several days. 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 Patient is concerned because pain is persisting and she has a history of hypercoagulopathy and is currently on Lovenox. Patient is concerned she may have a DVT. She denies chest pain or shortness of breath. Symptoms are mild in severity. Walking makes symptoms worse. Rest makes symptoms better. - History of Current Complaint Chief Complaint: EDExtremityLower Stated Complaint: POSS BLOOD CLOT PER PT Time Seen by Provider: 03/21/19 15:55 Hx Obtained From: Patient Hx Last Menstrual Period: N/A Pain Intensity: 5 - Allergies/Home Medications Allergies/Adverse Reactions: Allergies Allergy/AdvReac Type Severity Reaction Status Date / Time bee venom protein (honey bee) Allergy Severe Anaphylatic Verified 04/06/18 11:32 Shock duloxetine [From Cymbalta] Allergy Severe seizure Verified 04/06/18 11:32 amitriptyline Allergy S-T Verified 04/06/18 11:32 depression on EKG amoxicillin [From Augmentin] Allergy Nausea And Verified 04/06/18 11:32 Vomiting ciprofloxacin [From Cipro] Allergy Itching Verified 04/06/18 11:32 clavulanic acid Allergy Nausea And Verified 04/06/18 11:32 [From Augmentin] Vomiting hydroxyzine Allergy Anxiety Verified 04/06/18 11:32 Sulfa (Sulfonamide Allergy Unknown Verified 04/06/18 11:32 Antibiotics) Reaction Details almonds Allergy TROUBLE Uncoded 03/30/18 13:59 BREATHING Home Medications: Home Medications Enoxaparin(*) [Lovenox(*)] 150 mg SUBCUT Q24H 03/21/19 [History Confirmed ] Losartan TAB* [Cozaar TAB*] 100 mg PO DAILY 03/21/19 [History Confirmed 03/21/19 ] Omeprazole CAP (NF) [Prilosec CAP* 20 MG] 20 mg PO DAILY 03/21/19 [History Confirmed 03/21/19] Rosuvastatin (NF) [Crestor] 20 mg PO BEDTIME 03/21/19 [History Confirmed ] busPIRone TAB* [Buspar TAB*] 2.5 mg PO BID PRN 03/21/19 [History Confirmed 03/21] PMH/Surg Hx/FS Hx/Imm Hx Previously Healthy: Yes Endocrine/Hematology History: Reports: Hx Anticoagulant Therapy - Currently on Lovenox, Hx Blood Disorders - pt states blood disorder but unable to tell what its called, Hx Thyroid Disease, Other Endocrine/Hematological Disorders - pt states blood disorder but unable to tell what its called Denies: Hx Diabetes, Hx Anemia Cardiovascular History: Reports: Hx Angina, Hx Coronary Artery Disease, Hx Embolism - PE's, Hx Hypercholesterolemia, Hx Hypertension, Other Cardiovascular Problems/Disorders - Coronary artery spasm Denies: Hx Congestive Heart Failure, Hx Myocardial Infarction, Hx Pacemaker/ ICD, Hx Valvular Heart Disease Respiratory History: Reports: Hx Pneumonia, Hx Pulmonary Embolism, Hx Seasonal Allergies Denies: Hx Asthma, Hx Chronic Bronchitis - Gets acute Bronchitis occasionally , Hx Chronic Obstructive Pulmonary Disease (COPD) GI History: Reports: Hx Gall Bladder Disease - Cholestectomy, Hx Gastroesophageal Reflux Disease, Hx Gastrointestinal Bleed, Hx Hiatal Hernia, Hx Ulcer, Other GI Disorders - Esophageal spasm Denies: Hx Jaundice History: Reports: Hx Kidney Stones Denies: Hx Dialysis, Hx Renal Disease Musculoskeletal History: Reports: Hx Arthritis, Hx Back Problems, Hx Bursitis, Hx Orthopedic Injury - Fractured bilateral wrists, left ankle, left arm, fingers , ribs, sacrum fx, Hx Osteoporosis, Hx Tendonitis Sensory History: Reports: Hx Contacts or Glasses, Hx Legally Blind - L eye, Hx Vision Problem - blind in left eye, Other Sensory Impairments - 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 Denies: Hx Hearing Aid Opthamlomology History: Reports: Hx Contacts or Glasses, Hx Legally Blind - L eye, Hx Vision Problem - blind in left eye, Other Sensory Impairments - 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 ABDOMINAL LAPROSCOPIC. BONE CEMENT FOR SACRAL FRACTURE 10/31/2017 Hx Anesthesia Reactions: No - Immunization History Date of Tetanus Vaccine: utd Date of Influenza Vaccine: fall 2016 Immunizations Up to Date: Yes Infectious Disease History: No Infectious Disease History: Denies: Traveled Outside the [place] in Last 30 Days - Family History Known Family History: Positive: Unknown - paternal hx unknown, Cardiac Disease, Hypertension, Blood Disorder, Other - GERD, alcoholism, Non-Contributory - Social History Occupation: Employed Full-time Lives: With Family Alcohol Use: None Hx Substance Use: Yes Substance Use Type: Reports: Marijuana Substance Use Comment - Amount & Last Used: occasional Hx Tobacco Use: No Smoking Status (MU): Never Smoked Tobacco Review of Systems Positive: Other - left calf pain Skin: Negative Neurological: Negative Negative: Weakness, Paresthesia, Numbness All Other Systems Reviewed And Are Negative: Yes Physical Exam Triage Information Reviewed: Yes Vital Signs On Initial Exam: Initial Vitals Temp Pulse Resp BP Pulse Ox 97.6 F 88 16 181/106 100 03/21/19 14:08 03/21/19 14:08 03/21/19 14:08 03/21/19 14:08 03/21/19 14:08 Vital Signs Reviewed: Yes Appearance: Positive: Well-Appearing - Patient sitting on bed in no acute distress. Skin: Positive: Warm, Dry Head/Face: Positive: Normal Head/Face Inspection Eyes: Positive: Normal, EOMI Musculoskeletal: Positive: Other - Diffuse left calf tenderness on palpation. To appreciate any edema. Good pulses. No open wounds. No bony tenderness. Neurological: Positive: Normal, CN Intact II-III Psychiatric: Positive: Affect/Mood Appropriate Procedures - Sedation Patient Received Moderate/Deep Sedation with Procedure: No Diagnostics - Vital Signs Vital Signs Temp Pulse Resp BP Pulse Ox 03/21/19 14:08 97.6 F 88 16 181/106 100 - Laboratory Lab Statement: Any lab studies that have been ordered have been reviewed, and results considered in the medical decision making process. Lower Extremity Course/Dx - Course Assessment/Plan: Patient presenting with left calf pain and history of DVT. Venous duplex negative for DVT or acute findings, reading per radiology. Suspect contusion. Advised patient to elevate and ice intermittently. To follow-up with PCP for recheck if symptoms persist. - Diagnoses Differential Diagnosis/HQI/PQRI: Positive: Contusion, DVT, Sprain, Strain Provider Diagnoses: Contusion of leg Discharge ED - Sign-Out/Discharge Documenting (check all that apply): Patient Departure - Discharge Plan Condition: Good Disposition: HOME Patient Education Materials: Contusion in Adults (ED) Referrals: Sandee Gonzalez MD [Primary Care Provider] - Additional Instructions: Follow up with PCP if symptoms persist Ice and elevate area Return to ER if symptoms change or worsen - Billing Disposition and Condition Condition: GOOD Disposition: Home - Attestation Statements Provider Attestation: I was available for consult. This patient was seen by the [facility]. The patient was not presented to, seen by, or examined by me. -John
[2019-03-21 18:04] VITALS: BP 137/86
== END 2019-03-21 17:47 | disposition home or self-care (01) ==
LOC: ED 14:06
DX: S80.12XA Contusion of left lower leg, initial encounter (principal); V49.88XA Car occupant (driver) (passenger) injured in other specified transport accidents, initial encounter; Y92.9 Unspecified place or not applicable; Y99.0 Civilian activity done for income or pay; I25.10 Atherosclerotic heart disease of native coronary artery without angina pectoris; I10 Essential (primary) hypertension; K21.9 Gastro-esophageal reflux disease without esophagitis; F41.9 Anxiety disorder, unspecified; F32.9 Major depressive disorder, single episode, unspecified; Z90.710 Acquired absence of both cervix and uterus; Z86.73 Personal history of transient ischemic attack (TIA), and cerebral infarction without residual deficits; Z90.49 Acquired absence of other specified parts of digestive tract; Z86.711 Personal history of pulmonary embolism; Z79.01 Long term (current) use of anticoagulants; Z79.899 Other long term (current) drug therapy; Z88.1 Allergy status to other antibiotic agents; Z88.0 Allergy status to penicillin; Z88.2 Allergy status to sulfonamides; Z88.8 Allergy status to other drugs, medicaments and biological substances
CPT/HCPCS: 99282

== ENCOUNTER 2020-10-03 15:33 | Observation (INO) ==
[2020-10-03] MEDS ORDERED: Morphine 4 MG/ML VIAL (1 ml) IV ONE ×2 (15:51→17:08)
[2020-10-03] MEDS ORDERED: Ondansetron 4 mg VIAL 2 MG/ML 2 ml VIAL IV ONE ×2 (15:51→17:08)
[2020-10-03] MEDS ORDERED: NS 0.9% 1000 ml BAG 1,000 ML IV ONE ×2 (15:51→17:08)
[2020-10-03 16:12] LABS: ABS Basophils 0.1 10^3/ul (0-0.2); ABS Lymphocytes 2.1 10^3/ul (1.0-4.8); ABS Monocytes 0.7 10^3/ul (0-0.8); ABS Neutrophils 8.1 10^3/ul (1.5-7.7); Eosinophil % 0.4 %; Hematocrit 43 % (35-47); Hemoglobin 14.8 g/dL (12.0-16.0); Lymphocyte % 19.2 %; Mean Corpuscular HGB Conc 35 g/dL (31-36); Mean Corpuscular Hemoglobin 32 pg (27-31); Mean Corpuscular Volume 92 fL (80-97); Mean Platelet Volume 8.3 fL (7.4-10.4); Platelet Count 372 10^3/uL (150-450); Red Blood Count 4.68 10^6 /uL (3.70-4.87); Red Cell Distribution Width 14 % (10-15)
[2020-10-03 16:22] LABS: INR 1.1 (0.82-1.09)
[2020-10-03 16:35] LABS: Troponin I 0.01 ng/mL (<0.03)
[2020-10-03 16:37] LABS: ALT 26 U/L (7-52); AST 18 U/L (13-39); Albumin 4.8 g/dL (3.2-5.2); Albumin/Globulin Ratio 1.7 (1-3); Alkaline Phosphatase 58 U/L (34-104); Anion Gap 9 mmol/L (2-11); Blood Urea Nitrogen 14 mg/dL (6-24); CO2 Carbon Dioxide 26 mmol/L (22-32); Calcium 9.9 mg/dL (8.6-10.3); Chloride 107 mmol/L (101-111); EGFR African American 61.7 (>60); Globulin 2.9 g/dL (2-4); Glucose 117 mg/dL (70-100); Potassium 4.2 mmol/L (3.5-5.0); Sodium 142 mmol/L (135-145); Total Protein 7.7 g/dL (6.4-8.9)
[2020-10-03] MEDS ORDERED: Morphine 10 MG/ML VIAL (1 ml) IV ONE (18:49)
[2020-10-03] MEDS ORDERED: Nitro 2% OINT (Nitroglycerin) 1 INCH/PAK TOPICAL ONE (18:49)
[2020-10-03] MEDS ORDERED: Iodixanol (CONTRAST) 320 MG/ML 100 ML SDV IV ONE (18:58)
[2020-10-03 19:22] LABS: Magnesium 1.9 mg/dL (1.9-2.7)
[2020-10-03 19:38] LABS: Alcohol, S < 10 mg/dL (<10)
[2020-10-03] MEDS: Prochlorperazine 5 mg/ml 2 ml VIAL (10 mg) IV PRN (19:45)
[2020-10-03 19:48] LABS: TSH Ultra Thyroid Stim Horm 2.61 mcIU/mL (0.34-5.60)
[2020-10-03] MEDS ORDERED: Albuterol HFA INHALER 8 gm MDI INH PRN (21:49)
[2020-10-03] MEDS ORDERED: Morphine 2 MG/ML SYRINGE IV ONE (23:11)
[2020-10-03] MEDS: Ondansetron 4 mg VIAL 2 MG/ML 2 ml VIAL IV PRN (23:44)
[2020-10-04] MEDS ORDERED: Morphine 2 MG/ML SYRINGE IV PRN (03:32)
[2020-10-04 03:44] LABS: ABS Basophils 0.1 10^3/ul (0-0.2); ABS Eosinophils 0.2 10^3/ul (0-0.6); ABS Lymphocytes 3.4 10^3/ul (1.0-4.8); ABS Monocytes 0.6 10^3/ul (0-0.8); ABS Neutrophils 4.1 10^3/ul (1.5-7.7); Eosinophil % 2.2 %; Hematocrit 39 % (35-47); Hemoglobin 13.3 g/dL (12.0-16.0); Lymphocyte % 41.3 %; Mean Corpuscular HGB Conc 34 g/dL (31-36); Mean Corpuscular Hemoglobin 32 pg (27-31); Mean Corpuscular Volume 93 fL (80-97); Mean Platelet Volume 8.1 fL (7.4-10.4); Platelet Count 326 10^3/uL (150-450); Red Blood Count 4.22 10^6 /uL (3.70-4.87); Red Cell Distribution Width 14 % (10-15); White Blood Count 8.3 10^3/uL (3.5-10.8)
[2020-10-04] MEDS: Prochlorperazine 5 mg/ml 2 ml VIAL (10 mg) IV PRN ×2 (04:08→17:55)
[2020-10-04 04:09] LABS: Calcium 8.8 mg/dL (8.6-10.3); EGFR African American 73.1 (>60); EGFR Non-African American 60.4 (>60)
[2020-10-04] MEDS: oxyCODONE/Acetamin 5/325 mg TAB PO PRN ×2 (08:45→20:30)
[2020-10-04] MEDS: Vitamin THERAPEUTIC TAB PO SCH (08:45)
[2020-10-04] MEDS: Cholecalciferol (VIT D3) 1,000 unit TAB PO SCH (08:45)
[2020-10-04] MEDS: Aspirin EC 81 mg TAB.EC (enteric coated) PO SCH (08:45)
[2020-10-04] MEDS: Ondansetron 4 mg VIAL 2 MG/ML 2 ml VIAL IV PRN ×3 (10:49→23:48)
[2020-10-04 13:17] LABS: Creatine Kinase 33 U/L (10-223)
[2020-10-04] MEDS: Morphine 10 MG/ML VIAL (1 ml) IV PRN ×3 (13:44→23:05)
[2020-10-04] MEDS: Nitro 2% OINT (Nitroglycerin) 1 INCH/PAK TOPICAL SCH (13:44)
[2020-10-04] MEDS ORDERED: Iodixanol (CONTRAST) 320 MG/ML 100 ML SDV IV ONE (14:50)
[2020-10-04] MEDS ORDERED: Metoclopramide 5 MG/ML VIAL (10 mg) IV SLOW PU ONE (18:05)
[2020-10-04] MEDS ORDERED: Nitro Patch/OINT Remove PATCH TOPICAL SCH (20:00)
[2020-10-05] MEDS: Ondansetron 4 mg VIAL 2 MG/ML 2 ml VIAL IV PRN ×2 (06:09→20:46)
[2020-10-05] MEDS: Morphine 10 MG/ML VIAL (1 ml) IV PRN ×3 (06:09→20:52)
[2020-10-05] MEDS: Nitro 2% OINT (Nitroglycerin) 1 INCH/PAK TOPICAL SCH (08:13)
[2020-10-05] MEDS: Aspirin EC 81 mg TAB.EC (enteric coated) PO SCH (08:15)
[2020-10-05] MEDS: Cholecalciferol (VIT D3) 1,000 unit TAB PO SCH (08:15)
[2020-10-05] MEDS: Vitamin THERAPEUTIC TAB PO SCH (08:16)
[2020-10-05] MEDS: Prochlorperazine 5 mg/ml 2 ml VIAL (10 mg) IV PRN ×2 (09:15→18:56)
[2020-10-05] MEDS: oxyCODONE/Acetamin 5/325 mg TAB PO PRN (18:57)
[2020-10-05] MEDS ORDERED: Metoclopramide 5 MG/ML VIAL (10 mg) ONE (19:37)
[2020-10-06] MEDS: Morphine 10 MG/ML VIAL (1 ml) IV PRN (04:07)
[2020-10-06] MEDS: Ondansetron 4 mg VIAL 2 MG/ML 2 ml VIAL IV PRN ×2 (04:07→11:33)
[2020-10-06] MEDS: Aspirin EC 81 mg TAB.EC (enteric coated) PO SCH (07:46)
[2020-10-06] MEDS: Vitamin THERAPEUTIC TAB PO SCH (07:46)
[2020-10-06] MEDS: Prochlorperazine 5 mg/ml 2 ml VIAL (10 mg) IV PRN (07:46)
[2020-10-06] MEDS: Cholecalciferol (VIT D3) 1,000 unit TAB PO SCH (07:46)
[2020-10-06] MEDS: oxyCODONE/Acetamin 5/325 mg TAB PO PRN (11:33)
[2020-10-06] MEDS ORDERED: Regadenoson 0.4 MG/5 ML SYRINGE ONE (13:27)
[2020-10-06 17:10] VITALS: BP 139/63
== END 2020-10-06 18:08 | disposition home or self-care (01) ==
LOC: ED 15:33 → MEDTELE 15:33
PROVIDERS: ADMIT Internal Medicine; ATTEND Hospitalist

== ENCOUNTER 2020-12-05 11:20 | Observation (INO) ==
[2020-12-05] MEDS ORDERED: Al Hydrox/Mg Hydrox/Simet LIQ 30 ML UDC PO ONE (12:06)
[2020-12-05] MEDS ORDERED: Lactated Ringers 1000 ml BAG 1,000 ML IV ONE ×2 (12:06→18:19)
[2020-12-05] MEDS ORDERED: HYDROmorphone 0.5 MG/0.5 ML SYRINGE IV ONE (12:07)
[2020-12-05 13:58] LABS: ABS Lymphocytes 1.7 10^3/ul (1.0-4.8); ABS Monocytes 0.5 10^3/ul (0-0.8); ABS Neutrophils 5.9 10^3/ul (1.5-7.7); Eosinophil % 0.4 %; Hematocrit 42 % (35-47); Hemoglobin 14.2 g/dL (12.0-16.0); Lymphocyte % 21.1 %; Mean Corpuscular HGB Conc 33 g/dL (31-36); Mean Corpuscular Hemoglobin 31 pg (27-31); Mean Corpuscular Volume 92 fL (80-97); Platelet Count 349 10^3/uL (150-450); Red Cell Distribution Width 14 % (10-15); White Blood Count 8.3 10^3/uL (3.5-10.8)
[2020-12-05 14:15] LABS: Albumin 4.5 g/dL (3.2-5.2); Albumin/Globulin Ratio 1.6 (1-3); C Reactive Protein 1.47 mg/L (<8.01); Calcium 9.8 mg/dL (8.6-10.3); EGFR African American 69.5 (>60); EGFR Non-African American 57.4 (>60); Globulin 2.8 g/dL (2-4); Potassium 3.7 mmol/L (3.5-5.0); Total Bilirubin 0.4 mg/dL (0.2-1.0); Total Protein 7.3 g/dL (6.4-8.9)
[2020-12-05] MEDS ORDERED: Iodixanol (CONTRAST) 320 MG/ML 100 ML SDV IV ONE (15:17)
[2020-12-05] MEDS ORDERED: Ondansetron 4 mg VIAL 2 MG/ML 2 ml VIAL IV ONE ×2 (16:25→18:21)
[2020-12-05] MEDS ORDERED: Metoclopramide 5 MG/ML VIAL (10 mg) IV ONE (18:19)
[2020-12-05] MEDS ORDERED: Pantoprazole VIAL 40 MG VIAL IV ONE (18:24)
[2020-12-05 18:41] LABS: Troponin I 0.01 ng/mL (<0.03)
[2020-12-05] MEDS ORDERED: HYDROmorphone 1 MG/1 ML SYRINGE IV SLOW PU ONE (20:08)
[2020-12-05] MEDS ORDERED: Metoclopramide 5 MG/ML VIAL (10 mg) IV SLOW PU ONE (20:09)
[2020-12-05] MEDS ORDERED: Al Hydrox/Mg Hydrox/Simet LIQ 30 ML UDC PO PRN (20:17)
[2020-12-05] MEDS ORDERED: Albuterol HFA INHALER 8 gm MDI INH PRN (20:39)
[2020-12-06] MEDS: Ondansetron 4 mg VIAL 2 MG/ML 2 ml VIAL IV PRN ×4 (05:52→21:46)
[2020-12-06] MEDS: HYDROmorphone 1 MG/1 ML SYRINGE IV SLOW PU PRN ×3 (05:52→20:21)
[2020-12-06 06:56] LABS: ABS Eosinophils 0.1 10^3/ul (0-0.6); ABS Lymphocytes 1.9 10^3/ul (1.0-4.8); ABS Monocytes 0.7 10^3/ul (0-0.8); ABS Neutrophils 4.5 10^3/ul (1.5-7.7); Eosinophil % 1.2 %; Hematocrit 41 % (35-47); Lymphocyte % 25.9 %; Mean Corpuscular HGB Conc 34 g/dL (31-36); Mean Corpuscular Hemoglobin 31 pg (27-31); Mean Corpuscular Volume 92 fL (80-97); Platelet Count 316 10^3/uL (150-450); Red Blood Count 4.48 10^6 /uL (3.70-4.87); Red Cell Distribution Width 14 % (10-15); White Blood Count 7.2 10^3/uL (3.5-10.8)
[2020-12-06 07:14] LABS: Albumin 4.3 g/dL (3.2-5.2); Albumin/Globulin Ratio 1.9 (1-3); C Reactive Protein 1.73 mg/L (<8.01); Calcium 9.7 mg/dL (8.6-10.3); Direct Bilirubin 0.1 mg/dL (0.03-0.18); EGFR African American 71.1 (>60); EGFR Non-African American 58.8 (>60); Globulin 2.3 g/dL (2-4); Indirect Bilirubin 0.5 mg/dL (0.3-1.0); Potassium 4.1 mmol/L (3.5-5.0); Total Bilirubin 0.6 mg/dL (0.2-1.0); Total Protein 6.6 g/dL (6.4-8.9)
[2020-12-06] MEDS: Pantoprazole VIAL 40 MG VIAL IV SCH (08:25)
[2020-12-06] MEDS: Prochlorperazine 5 mg/ml 2 ml VIAL (10 mg) IV PRN ×2 (09:05→15:01)
[2020-12-06] MEDS ORDERED: Pantoprazole VIAL 40 MG VIAL IV ONE (09:34)
[2020-12-06] MEDS ORDERED: Aspirin EC 81 mg TAB.EC (enteric coated) PO SCH (18:00)
[2020-12-06 22:32] LABS: Urine Appearance Clear; Urine Bilirubin Negative (Negative); Urine Blood 1+ (Negative); Urine Color Straw; Urine Glucose Negative (Negative); Urine Ketones Negative (Negative); Urine Nitrite Negative (Negative); Urine Protein Negative (Negative); Urine Specific Gravity 1.006 (1.002-1.030); Urine Urobilinogen Negative (Negative)
[2020-12-06 22:42] LABS: Urine Bacteria Absent (Absent); Urine Red Blood Cell Trace(0-2/hpf) (Absent); Urine Squamous Epithelial Cell Present (Absent); Urine White Blood Cell Trace(0-5/hpf) (Absent)
[2020-12-07] MEDS: HYDROmorphone 1 MG/1 ML SYRINGE IV SLOW PU PRN ×2 (03:12→12:30)
[2020-12-07] MEDS: Ondansetron 4 mg VIAL 2 MG/ML 2 ml VIAL IV PRN (08:53)
[2020-12-07] MEDS: Pantoprazole VIAL 40 MG VIAL IV SCH (08:54)
[2020-12-07 12:08] VITALS: BP 150/74
[2020-12-07 12:25] LABS: Urine Benzodiazepine Screen Presumptive Positive (None Detect); Urine Cannabinoids Screen Presumptive Positive (None Detect); Urine Opiates Screen Presumptive Positive (None Detect)
[2020-12-08] MEDS ORDERED: Scopolamine PATCH Remove NOTE PATCH OFF SCH (21:00)
== END 2020-12-07 13:50 | disposition home or self-care (01) ==
LOC: MED 11:20 → ED 11:20 → MED 22:49
PROVIDERS: ADMIT Internal Medicine; ATTEND Internal Medicine

== ENCOUNTER 2021-04-18 18:16 | Observation (INO) ==
[2021-04-18] MEDS ORDERED: Morphine 4 MG/ML VIAL (1 ml) IV ONE ×2 (18:41→20:27)
[2021-04-18] MEDS ORDERED: Iohexol 350 (CONTRAST) 500 ML MDV IV ONE (20:40)
[2021-04-18] MEDS ORDERED: Albuterol HFA INHALER 8 gm MDI INH PRN (22:02)
[2021-04-18 22:52] LABS: ABS Eosinophils 0.1 10^3/ul (0-0.6); ABS Lymphocytes 3.4 10^3/ul (1.0-4.8); ABS Monocytes 0.9 10^3/ul (0-0.8); ABS Neutrophils 5.7 10^3/ul (1.5-7.7); Eosinophil % 0.9 %; Hematocrit 38 % (35-47); Hemoglobin 12.7 g/dL (12.0-16.0); Lymphocyte % 33.8 %; Mean Corpuscular HGB Conc 34 g/dL (31-36); Mean Corpuscular Hemoglobin 31 pg (27-31); Mean Corpuscular Volume 91 fL (80-97); Mean Platelet Volume 7.8 fL (7.4-10.4); Platelet Count 365 10^3/uL (150-450); Red Blood Count 4.14 10^6 /uL (3.70-4.87); Red Cell Distribution Width 14 % (10-15); White Blood Count 10.2 10^3/uL (3.5-10.8)
[2021-04-18 23:05] LABS: Rapid COVID-19 Molecular Undetected (Undetected)
[2021-04-18 23:09] LABS: C Reactive Protein 1.28 mg/L (<8.01); Calcium 9.1 mg/dL (8.6-10.3); Potassium 4.1 mmol/L (3.5-5.0); eGFR CKD-EPI 64.9 (>60)
[2021-04-18] MEDS: Nitro 2% OINT (Nitroglycerin) 1 INCH/PAK TOPICAL SCH (23:21)
[2021-04-18 23:23] LABS: TSH Ultra Thyroid Stim Horm 4.26 mcIU/mL (0.34-5.60)
[2021-04-19 06:17] LABS: HDL Cholesterol 56.1 mg/dL
[2021-04-19] MEDS: Nitro 2% OINT (Nitroglycerin) 1 INCH/PAK TOPICAL SCH ×2 (08:32→13:37)
[2021-04-19] MEDS: Aspirin EC 81 mg TAB.EC (enteric coated) PO SCH (08:32)
[2021-04-19] MEDS ORDERED: Morphine ORAL.SOLN 10 mg 2 mg/ml UDC 5 ml (10 mg) PO PRN (13:05)
[2021-04-19] MEDS: Morphine ORAL.SOLN 10 mg 2 mg/ml UDC 5 ml (10 mg) PO PRN ×3 (13:38→19:43)
[2021-04-20] MEDS: Morphine ORAL.SOLN 10 mg 2 mg/ml UDC 5 ml (10 mg) PO PRN ×3 (02:00→10:59)
[2021-04-20] MEDS: Nitro 2% OINT (Nitroglycerin) 1 INCH/PAK TOPICAL SCH (08:03)
[2021-04-20] MEDS ORDERED: Cholecalciferol (VIT D3) 1,000 unit TAB PO SCH (09:00)
[2021-04-20] MEDS: Aspirin EC 81 mg TAB.EC (enteric coated) PO SCH (10:57)
[2021-04-20] MEDS ORDERED: Regadenoson 0.4 MG/5 ML SYRINGE ONE (11:42)
[2021-04-20 13:31] VITALS: BP 122/68
== END 2021-04-20 14:00 | disposition home or self-care (01) ==
LOC: ED 18:16 → EDHOLD 18:16 → SUATTDRO 21:55 → MEDTELE 23:26
PROVIDERS: ADMIT Internal Medicine; ATTEND Hospitalist

== ENCOUNTER 2023-05-13 03:32 | Observation (INO) ==
[2023-05-13 04:06] LABS: ABS Basophils 0.1 10^3/uL (0.0-0.1); ABS Eosinophils 0.1 10^3/uL (0.0-0.5); ABS Lymphocytes 2.1 10^3/uL (1.0-4.8); ABS Monocytes 0.8 10^3/uL (0.0-0.9); ABS Neutrophils 5.1 10^3/uL (1.5-7.6); ABS Nucleated RBC 0.01 10^3/ul; Eosinophil % 1.8 %; Hematocrit 36.1 % (35-45); Hemoglobin 12.1 g/dL (11.5-14.3); Lymphocyte % 25.5 %; Mean Corpuscular Hemoglobin 29.2 pg (27-33); Mean Corpuscular Hgb Conc 33.4 g/dL (31-36); Mean Corpuscular Volume 87.3 fL (80-97); Mean Platelet Volume 7.5 fL (7.5-11.2); Nucleated Red Blood Cells % 0.1 %/100WBC (0.0-0.8); Platelet Count 348 10^3/uL (150-450); Red Blood Count 4.13 10^6/uL (3.63-4.92); Red Cell Distribution Width 14.6 % (12-17); White Blood Count 8.2 10^3/uL (3.8-11.8)
[2023-05-13 04:15] LABS: INR 1.05 (0.83-1.13)
[2023-05-13 04:25] LABS: Albumin 4.3 g/dL (3.2-5.2); Albumin/Globulin Ratio 1.8 (1-3); Calcium 9.2 mg/dL (8.6-10.3); Creatinine, Serum 0.98 mg/dL (0.51-0.95); Globulin 2.4 g/dL (2-4); Potassium 3.7 mmol/L (3.5-5.0); Total Bilirubin 0.2 mg/dL (0.2-1.0); Total Protein 6.7 g/dL (6.4-8.9); eGFR CKD-EPI 65.7 (>60)
[2023-05-13 05:30] LABS: High Sensitivity Troponin 1 Hr 4 pg/mL (<15)
[2023-05-13] MEDS ORDERED: Ondansetron 4 mg VIAL 2 MG/ML 2 ml VIAL IV PRN (05:34)
[2023-05-13] MEDS ORDERED: Albuterol HFA INHALER 8 gm MDI INH PRN (07:25)
[2023-05-13] MEDS ORDERED: Aminophylline 25 MG/ML VIAL ONE (08:26)
[2023-05-13] MEDS ORDERED: Regadenoson 0.4 MG/5 ML SYRINGE ONE (08:26)
[2023-05-13 17:24] VITALS: BP 150/107
[2023-05-13] MEDS ORDERED: Aspirin EC 81 mg TAB.EC (enteric coated) PO SCH (21:00)
== END 2023-05-13 17:25 | disposition home or self-care (01) ==
LOC: ED 03:32 → EDHOLD 03:32 → SUATTDRO 05:34 → EDHOLD 17:24
PROVIDERS: ADMIT Internal Medicine; ATTEND Hospitalist

== ENCOUNTER 2023-06-08 05:21 | Observation (INO) ==
[2023-06-08] MEDS ORDERED: Lactated Ringers 1000 ml BAG 1,000 ML IV ONE (06:37)
[2023-06-08 07:06] LABS: ABS Basophils 0.1 10^3/uL (0.0-0.1); ABS Eosinophils 0.1 10^3/uL (0.0-0.5); ABS Monocytes 0.7 10^3/uL (0.0-0.9); ABS Neutrophils 5.8 10^3/uL (1.5-7.6); ABS Nucleated RBC 0.01 10^3/ul; Eosinophil % 1.1 %; Hematocrit 40.8 % (35-45); Hemoglobin 13.7 g/dL (11.5-14.3); INR 1.14 (0.83-1.13); Lymphocyte % 23.3 %; Mean Corpuscular Hgb Conc 33.6 g/dL (31-36); Mean Corpuscular Volume 86.4 fL (80-97); Mean Platelet Volume 7.5 fL (7.5-11.2); Nucleated Red Blood Cells % 0.1 %/100WBC (0.0-0.8); Platelet Count 400 10^3/uL (150-450); Red Blood Count 4.72 10^6/uL (3.63-4.92); Red Cell Distribution Width 14.3 % (12-17); White Blood Count 8.7 10^3/uL (3.8-11.8)
[2023-06-08 07:17] LABS: Albumin 4.9 g/dL (3.2-5.2); Albumin/Globulin Ratio 1.6 (1-3); Calcium 9.8 mg/dL (8.6-10.3); Creatinine, Serum 1.1 mg/dL (0.51-0.95); Globulin 3.1 g/dL (2-4); Potassium 3.6 mmol/L (3.5-5.0); Total Bilirubin 0.4 mg/dL (0.2-1.0); eGFR CKD-EPI 57.2 (>60)
[2023-06-08] MEDS ORDERED: Iodixanol (CONTRAST) 320 MG/ML 100 ML SDV IV ONE (08:01)
[2023-06-08 09:18] LABS: Lipase 28 U/L (11.0-82.0)
[2023-06-08 09:20] LABS: High Sensitivity Troponin 1 Hr 6 pg/mL (<15)
[2023-06-08] MEDS ORDERED: Morphine 2 MG/ML SYRINGE IV ONE (09:52)
[2023-06-08] MEDS ORDERED: EPINEPHrine Anaphylaxis SYR CERTADOSE SYR KIT IM PRN (17:02)
[2023-06-08] MEDS ORDERED: Aspirin EC 81 mg TAB.EC (enteric coated) PO SCH (21:00)
[2023-06-09] MEDS ORDERED: Gadoteridol (CONTRAST) 279.3 MG/ML 10 ML IV ONE (00:40)
[2023-06-09] MEDS: Nystatin TOP POWDER 15 GM BTL TOPICAL SCH ×2 (02:34→08:53)
[2023-06-09 06:09] LABS: Hematocrit 38.3 % (35-45); Hemoglobin 12.8 g/dL (11.5-14.3); Mean Corpuscular Hemoglobin 28.7 pg (27-33); Mean Corpuscular Hgb Conc 33.4 g/dL (31-36); Mean Corpuscular Volume 85.9 fL (80-97); Mean Platelet Volume 7.2 fL (7.5-11.2); Platelet Count 393 10^3/uL (150-450); Red Blood Count 4.46 10^6/uL (3.63-4.92); Red Cell Distribution Width 14.4 % (12-17); White Blood Count 8.3 10^3/uL (3.8-11.8)
[2023-06-09 06:27] LABS: HDL Cholesterol 48.9 mg/dL
[2023-06-09 06:28] LABS: Calcium 9.5 mg/dL (8.6-10.3); Creatinine, Serum 1.07 mg/dL (0.51-0.95); Magnesium 2.1 mg/dL (1.9-2.7); eGFR CKD-EPI 59.1 (>60)
[2023-06-09 08:03] LABS: TSH Ultra Thyroid Stim Horm 6.63 mcIU/mL (0.34-5.60)
[2023-06-09 13:45] VITALS: BP 147/82
== END 2023-06-09 14:12 | disposition home or self-care (01) ==
LOC: EDHOLD 05:21 → ED 05:21 → SUATTDRO 17:24 → MEDTELE 19:23
PROVIDERS: ADMIT Hospitalist; ATTEND Internal Medicine

== ENCOUNTER 2023-10-11 19:04 | Inpatient (IN) ==
[2023-10-11] MEDS ORDERED: Lorazepam PYXIS KEY PRN (20:04)
[2023-10-11] MEDS: diazePAM INJ CARPUJECT 5 MG/ML SYRINGE IV ONE (20:35)
[2023-10-11] MEDS: LORazepam 2 mg VIAL 1 ml IV PUSH ONE (20:36)
[2023-10-11] MEDS ORDERED: Senna TAB 8.6 mg TAB PO PRN (21:42)
[2023-10-11] MEDS ORDERED: Polyethylene Glycol 3350 17 GM PACKET PO PRN (21:42)
[2023-10-11] MEDS: Enoxaparin 40 MG/0.4 ML SYR SUBCUT SCH (22:19)
[2023-10-12] MEDS: Nystatin TOP POWDER 15 GM BTL TOPICAL SCH (02:07)
[2023-10-12 06:48] LABS: ABS Eosinophils 0.2 10^3/uL (0.0-0.5); ABS Lymphocytes 1.4 10^3/uL (1.0-4.8); ABS Monocytes 0.8 10^3/uL (0.0-0.9); ABS Neutrophils 7.1 10^3/uL (1.5-7.6); Eosinophil % 2.3 %; Hematocrit 34.8 % (35-45); Hemoglobin 11.5 g/dL (11.5-14.3); Lymphocyte % 14.4 %; Mean Corpuscular Hemoglobin 28.9 pg (27-33); Mean Corpuscular Hgb Conc 33.2 g/dL (31-36); Mean Corpuscular Volume 87.1 fL (80-97); Mean Platelet Volume 7.6 fL (7.5-11.2); Platelet Count 363 10^3/uL (150-450); Red Blood Count 3.99 10^6/uL (3.63-4.92); Red Cell Distribution Width 15.9 % (12-17); White Blood Count 9.5 10^3/uL (3.8-11.8)
[2023-10-12 07:16] LABS: Creatinine, Serum 1.08 mg/dL (0.51-0.95); Potassium 4.5 mmol/L (3.5-5.0); eGFR CKD-EPI 58.4 (>60)
[2023-10-12] MEDS: Aspirin EC 81 mg TAB.EC (enteric coated) PO SCH (09:18)
[2023-10-12 10:07] LABS: High Sensitivity Troponin 1 Hr 3 pg/mL (<15)
[2023-10-12] MEDS ORDERED: Sulfur Hexaflouride MICROSPHR 25 MG VIAL ONE (13:04)
[2023-10-12] MEDS: HYDROmorphone 0.5 MG/0.5 ML SYRINGE IV ONE (13:21)
[2023-10-12] MEDS: HYDROmorphone 0.5 MG/0.5 ML SYRINGE IV SLOW PU PRN (18:41)
[2023-10-12] MEDS: HYDROmorphone 0.5 MG/0.5 ML SYRINGE IV SLOW PU ONE (21:26)
[2023-10-13 07:38] LABS: Creatinine, Serum 1.07 mg/dL (0.51-0.95); Potassium 4.1 mmol/L (3.5-5.0); eGFR CKD-EPI 59.1 (>60)
[2023-10-13] MEDS: Al Hydrox/Mg Hydrox/Simet LIQ 30 ML UDC PO PRN (08:25)
[2023-10-13 10:04] LABS: High Sensitivity Troponin 1 Hr 3 pg/mL (<15)
[2023-10-13] MEDS: Lactated Ringers 1000 ml BAG 500 ML IV ONE (10:23)
[2023-10-13 11:27] LABS: ABS Eosinophils 0.1 10^3/uL (0.0-0.5); ABS Lymphocytes 1.2 10^3/uL (1.0-4.8); ABS Monocytes 0.5 10^3/uL (0.0-0.9); ABS Neutrophils 2.9 10^3/uL (1.5-7.6); Hematocrit 37.3 % (35-45); Hemoglobin 12.4 g/dL (11.5-14.3); Lymphocyte % 25.6 %; Mean Corpuscular Hemoglobin 28.9 pg (27-33); Mean Corpuscular Hgb Conc 33.2 g/dL (31-36); Mean Corpuscular Volume 87.2 fL (80-97); Mean Platelet Volume 7.2 fL (7.5-11.2); Nucleated Red Blood Cells % 0.1 %/100WBC (0.0-0.8); Platelet Count 355 10^3/uL (150-450); Red Blood Count 4.28 10^6/uL (3.63-4.92); Red Cell Distribution Width 15.6 % (12-17); White Blood Count 4.8 10^3/uL (3.8-11.8)
[2023-10-13 11:34] LABS: INR 1.06 (0.83-1.13)
[2023-10-13 12:08] LABS: Calcium 9.7 mg/dL (8.6-10.3); Creatinine, Serum 1.07 mg/dL (0.51-0.95); Potassium 4.3 mmol/L (3.5-5.0); eGFR CKD-EPI 59.1 (>60)
[2023-10-13] MEDS ORDERED: Heparin 1,000 UNIT/ML 10 ml (10,000 UNITS) CATHLAB/DIALYSIS ONE (12:59)
[2023-10-13] MEDS ORDERED: niCARdipine 0.1MG/ML IVPREMIX 20 MG/200 ML BAG IV ONE (13:01)
[2023-10-13] MEDS ORDERED: Iohexol 350 (CONTRAST) 100 ML PAK IV ONE (13:01)
[2023-10-13] MEDS ORDERED: Lidocaine 1% MPF 5 ML VIAL ONE (13:01)
[2023-10-13] MEDS ORDERED: Heparin 2 UNITS/ML 1000 mls 3,000 ML IV ONE (13:01)
[2023-10-13] MEDS ORDERED: nitroGLYCERIN DRIP 25,000 MCG/250 ML BTL ONE (13:01)
[2023-10-13] MEDS ORDERED: Flumazenil 0.5 mg/5 ml 0.1 MG/ML 5 ml VIAL IV PRN (13:57)
[2023-10-13] MEDS ORDERED: Naloxone 0.4 mg VIAL 0.4 mg/ml 1 ml VIAL IV PUSH PRN (13:57)
[2023-10-13] MEDS ORDERED: Midazolam 5 mg/5 ml VIAL 1 mg/ml 5 ml VIAL (5 mg) ONE (13:58)
[2023-10-13] MEDS ORDERED: fentaNYL 100 mcg/2 ml 50 MCG/ML VIAL ONE (13:59)
[2023-10-13] MEDS ORDERED: HYDROmorphone 1 MG/1 ML SYRINGE ONE (14:52)
[2023-10-13] MEDS: NS 0.9% 1000 ml BAG 1,000 ML IV SCH (17:10)
[2023-10-13] MEDS: Midazolam 10 mg/10 ml VIAL 1 mg/ml 10 ml VIAL (10 mg) IV SLOW PU ONE (17:10)
[2023-10-13] MEDS: fentaNYL 100 mcg/2 ml 50 MCG/ML VIAL IV SLOW PU ONE (17:10)
[2023-10-13 18:11] VITALS: BP 123/71
== END 2023-10-13 18:10 | disposition home or self-care (01) | DRG 287 ==
LOC: ED 19:04 → EDHOLD 19:04 → MEDTELE 23:46
PROVIDERS: ADMIT Student in an Organized Health Care Education/Training Program; ATTEND Student in an Organized Health Care Education/Training Program

== ENCOUNTER 2023-12-27 11:40 | Observation (INO) ==
[2023-12-27 12:32] LABS: ABS Lymphocytes 0.8 10^3/uL (1.0-4.8); ABS Monocytes 0.3 10^3/uL (0.0-0.9); ABS Neutrophils 5.8 10^3/uL (1.5-7.6); Eosinophil % 0.1 %; Hematocrit 39.2 % (35-45); Hemoglobin 12.9 g/dL (11.5-14.3); Lymphocyte % 11.1 %; Mean Corpuscular Hemoglobin 27.6 pg (27-33); Mean Corpuscular Volume 83.8 fL (80-97); Mean Platelet Volume 8.3 fL (7.5-11.2); Nucleated Red Blood Cells % 0.1 %/100WBC (0.0-0.8); Platelet Count 320 10^3/uL (150-450); Red Blood Count 4.67 10^6/uL (3.63-4.92); Red Cell Distribution Width 15.3 % (12-17); White Blood Count 6.9 10^3/uL (3.8-11.8)
[2023-12-27 12:36] LABS: Activated Partial Thrombo Time 23.1 seconds (26.0-38.0); INR 1.09 (0.83-1.13)
[2023-12-27 13:23] LABS: ALT 16 U/L (7-52); Albumin 4.7 g/dL (3.2-5.2); Albumin/Globulin Ratio 1.9 (1-3); Alkaline Phosphatase 73 U/L (35-149); Blood Urea Nitrogen 23 mg/dL (6-24); CO2 Carbon Dioxide 25 mmol/L (22-32); Calcium 10.2 mg/dL (8.6-10.3); Chloride 103 mmol/L (101-111); Cholesterol 146 mg/dL; Creatinine, Serum 1.57 mg/dL (0.51-0.95); Globulin 2.5 g/dL (2-4); Glucose 124 mg/dL (70-100); HDL Cholesterol 48.7 mg/dL; LDL Cholesterol 69 mg/dL; Sodium 139 mmol/L (135-145); Total Bilirubin 0.5 mg/dL (0.2-1.0); Total Protein 7.2 g/dL (6.4-8.9); Triglycerides 144 mg/dL; eGFR CKD-EPI 37.1 (>60)
[2023-12-27 14:09] LABS: AST 21 U/L (13-39); Anion Gap 11 mmol/L (2-16); Direct Bilirubin 0.1 mg/dL (0.03-0.18); Indirect Bilirubin 0.4 mg/dL (0.3-1.0); Potassium 4.5 mmol/L (3.5-5.0)
[2023-12-27 14:16] LABS: Urine Appearance Clear; Urine Bilirubin Negative (Negative); Urine Blood Negative (Negative); Urine Color Yellow; Urine Glucose Negative (Negative); Urine Ketones Negative (Negative); Urine Nitrite Negative (Negative); Urine Protein Trace (Negative); Urine Specific Gravity 1.022 (1.002-1.030); Urine Urobilinogen Negative (Negative)
[2023-12-27] MEDS ORDERED: Lorazepam PYXIS KEY PRN (14:30)
[2023-12-27] MEDS: LORazepam 2 mg VIAL 1 ml IV PUSH ONE (14:49)
[2023-12-27] MEDS: Lactated Ringers 1000 ml BAG 1,000 ML IV ONE (14:50)
[2023-12-27 15:05] LABS: Acetaminophen < 15 mcg/mL; Salicylate < 2.50 mg/dL (<30)
[2023-12-27 15:43] LABS: Creatine Kinase 311 U/L (10-223)
[2023-12-27 17:24] LABS: Urine Benzodiazepine Screen None Detected (None Detect); Urine Buprenorphine Screen None Detected (None Detect); Urine Cannabinoids Screen Presumptive Positive (None Detect); Urine Fentanyl Screen None Detected (None Detect); Urine Hydrocodone Screen Presumptive Positive (None Detect); Urine Opiates Screen Presumptive Positive (None Detect)
[2023-12-28 02:30] LABS: High Sensitivity Troponin 1 Hr 12 pg/mL (<15)
[2023-12-28] MEDS ORDERED: LORazepam 2 MG/ML 1 mL Syringe IV PRN (05:09)
[2023-12-28] MEDS: LORazepam 2 mg VIAL 1 ml IV PUSH PRN (05:17)
[2023-12-28 05:53] LABS: ABS Basophils 0.1 10^3/uL (0.0-0.1); ABS Eosinophils 0.1 10^3/uL (0.0-0.5); ABS Lymphocytes 1.8 10^3/uL (1.0-4.8); ABS Monocytes 0.9 10^3/uL (0.0-0.9); ABS Neutrophils 5.6 10^3/uL (1.5-7.6); Eosinophil % 0.6 %; Hematocrit 35.8 % (35-45); Hemoglobin 11.7 g/dL (11.5-14.3); Lymphocyte % 21.1 %; Mean Corpuscular Hemoglobin 27.9 pg (27-33); Mean Corpuscular Hgb Conc 32.8 g/dL (31-36); Mean Platelet Volume 8.1 fL (7.5-11.2); Platelet Count 311 10^3/uL (150-450); Red Blood Count 4.21 10^6/uL (3.63-4.92); White Blood Count 8.4 10^3/uL (3.8-11.8)
[2023-12-28 06:46] LABS: Anion Gap 8 mmol/L (2-16); Blood Urea Nitrogen 20 mg/dL (6-24); CO2 Carbon Dioxide 27 mmol/L (22-32); Calcium 9.3 mg/dL (8.6-10.3); Chloride 106 mmol/L (101-111); Creatine Kinase 415 U/L (10-223); Creatinine, Serum 1.34 mg/dL (0.51-0.95); Glucose 97 mg/dL (70-100); Magnesium 1.9 mg/dL (1.9-2.7); Sodium 141 mmol/L (135-145); eGFR CKD-EPI 44.8 (>60)
[2023-12-28] MEDS: Aspirin EC 81 mg TAB.EC (enteric coated) PO SCH (11:41)
[2023-12-28 16:07] LABS: Phosphorus 3.6 mg/dL (2.5-5.0); Potassium Redraw 4.1 mmol/L (3.5-5.0)
[2023-12-28] MEDS: NS 0.9% 1000 ml BAG 1,000 ML IV SCH (16:19)
[2023-12-28 16:21] LABS: TSH Ultra Thyroid Stim Horm 0.94 mcIU/mL (0.34-5.60)
[2023-12-29] MEDS: COWS Protocol Daily Order Reminder FOLLOW UP SCH (00:27)
[2023-12-29 07:21] LABS: Calcium 8.8 mg/dL (8.6-10.3); Creatinine, Serum 1.23 mg/dL (0.51-0.95); Potassium 3.9 mmol/L (3.5-5.0); eGFR CKD-EPI 49.7 (>60)
[2023-12-29 13:53] VITALS: BP 133/74
== END 2023-12-29 16:38 | disposition home or self-care (01) ==
LOC: EDHOLD 11:40 → ED 11:40 → SUATTDRO 16:01 → EDHOLD 12-28 06:14 → MEDTELE 12-28 07:25
PROVIDERS: ADMIT Internal Medicine; ATTEND Student in an Organized Health Care Education/Training Program

== ENCOUNTER 2024-05-03 23:23 | Observation (INO) ==
[2024-05-03] MEDS ORDERED: Lorazepam PYXIS KEY PRN (23:43)
[2024-05-03] MEDS ORDERED: LORazepam 2 mg VIAL 1 ml ONE (23:44)
[2024-05-03] MEDS: LORazepam 2 mg VIAL 1 ml IV PUSH ONE (23:52)
[2024-05-04] MEDS ORDERED: Lorazepam PYXIS KEY PRN ×2 (00:03→08:52)
[2024-05-04 00:06] LABS: ABS Basophils 0.1 10^3/uL (0.0-0.1); ABS Eosinophils 0.1 10^3/uL (0.0-0.5); ABS Lymphocytes 0.7 10^3/uL (1.0-4.8); ABS Monocytes 0.9 10^3/uL (0.0-0.9); ABS Neutrophils 17.2 10^3/uL (1.5-7.6); Eosinophil % 0.3 %; Hematocrit 42.2 % (35-45); Lymphocyte % 3.8 %; Mean Corpuscular Hemoglobin 29.2 pg (27-33); Mean Corpuscular Hgb Conc 33.2 g/dL (31-36); Mean Corpuscular Volume 87.7 fL (80-97); Mean Platelet Volume 7.7 fL (7.5-11.2); Platelet Count 411 10^3/uL (150-450); Red Blood Count 4.81 10^6/uL (3.63-4.92); Red Cell Distribution Width 15.8 % (12-17); White Blood Count 18.9 10^3/uL (3.8-11.8)
[2024-05-04] MEDS: LORazepam 2 mg VIAL 1 ml IV PUSH ONE ×2 (00:13→09:04)
[2024-05-04 00:35] LABS: Venous Bicarbonate HCO3 25.7 mmol/L (24-28)
[2024-05-04 00:43] LABS: ALT 19 U/L (7-52); AST 21 U/L (13-39); Acetaminophen < 15 mcg/mL; Albumin 4.5 g/dL (3.2-5.2); Albumin/Globulin Ratio 1.9 (1-3); Alcohol, S < 13 mg/dL (<13); Alkaline Phosphatase 70 U/L (35-149); Anion Gap 12 mmol/L (2-16); Blood Urea Nitrogen 32 mg/dL (6-24); CO2 Carbon Dioxide 24 mmol/L (22-32); Calcium 9.9 mg/dL (8.6-10.3); Chloride 104 mmol/L (101-111); Creatine Kinase 61 U/L (10-223); Creatinine, Serum 1.61 mg/dL (0.51-0.95); Globulin 2.4 g/dL (2-4); Glucose 107 mg/dL (70-100); Potassium 4.3 mmol/L (3.5-5.0); Salicylate < 2.50 mg/dL (<30); Sodium 140 mmol/L (135-145); Total Bilirubin 0.7 mg/dL (0.2-1.0); Total Protein 6.9 g/dL (6.4-8.9)
[2024-05-04] MEDS: Lactated Ringers 1000 ml BAG 1,000 ML IV ONE (03:43)
[2024-05-04 03:46] LABS: C Reactive Protein 7.71 mg/L (<8.01)
[2024-05-04 04:00] LABS: TSH Ultra Thyroid Stim Horm 0.31 mcIU/mL (0.34-5.60)
[2024-05-04] MEDS: cefTRIAXone 1 gm/50 mL D5W 1 GM/50 ML BAG IV ONE (05:15)
[2024-05-04 08:11] LABS: Urine Appearance Clear; Urine Bilirubin Negative (Negative); Urine Blood Negative (Negative); Urine Color Yellow; Urine Glucose Negative (Negative); Urine Ketones Trace (Negative); Urine Nitrite Negative (Negative); Urine Protein 1+ (>=30 mg/dL) (Negative); Urine Specific Gravity 1.043 (1.002-1.030); Urine Urobilinogen Negative (Negative)
[2024-05-04 08:16] LABS: Acetaminophen < 15 mcg/mL
[2024-05-04 08:29] LABS: Urine Benzodiazepine Screen None Detected (None Detect); Urine Cannabinoids Screen Presumptive Positive (None Detect); Urine Opiates Screen Presumptive Positive (None Detect)
[2024-05-04 08:34] LABS: Urine Bacteria Absent /HPF (Absent); Urine Red Blood Cell 1+(3-5/hpf) /HPF (0-Trace); Urine Squamous Epithelial Cell Present /HPF (Absent); Urine White Blood Cell Trace(0-5/hpf) /HPF (0-Trace)
[2024-05-04 09:13] LABS: Creatine Kinase 51 U/L (10-223)
[2024-05-04] MEDS: Aspirin EC 81 mg TAB.EC (enteric coated) PO SCH ×2 (11:14→15:53)
[2024-05-04] MEDS ORDERED: Aspirin EC 81 mg TAB.EC (enteric coated) PO SCH (15:00)
[2024-05-05 07:05] LABS: ABS Basophils 0.1 10^3/uL (0.0-0.1); ABS Eosinophils 0.3 10^3/uL (0.0-0.5); ABS Lymphocytes 1.6 10^3/uL (1.0-4.8); ABS Monocytes 1.1 10^3/uL (0.0-0.9); ABS Neutrophils 12.2 10^3/uL (1.5-7.6); Eosinophil % 2.1 %; Hematocrit 37.3 % (35-45); Hemoglobin 12.7 g/dL (11.5-14.3); Lymphocyte % 10.5 %; Mean Corpuscular Hemoglobin 29.6 pg (27-33); Mean Corpuscular Hgb Conc 33.9 g/dL (31-36); Mean Corpuscular Volume 87.4 fL (80-97); Mean Platelet Volume 7.9 fL (7.5-11.2); Platelet Count 366 10^3/uL (150-450); Red Blood Count 4.27 10^6/uL (3.63-4.92); Red Cell Distribution Width 15.6 % (12-17); White Blood Count 15.4 10^3/uL (3.8-11.8)
[2024-05-05 07:29] LABS: Calcium 9.1 mg/dL (8.6-10.3); Creatinine, Serum 1.13 mg/dL (0.51-0.95); Potassium 4.2 mmol/L (3.5-5.0)
[2024-05-05 10:13] VITALS: BP 123/61
== END 2024-05-05 16:14 | disposition home or self-care (01) ==
LOC: EDHOLD 23:23 → ED 23:23 → SUATTDRO 05-04 02:37 → MED 05-04 14:01
PROVIDERS: ADMIT Hospitalist; ATTEND Internal Medicine

== ENCOUNTER 2024-05-06 21:22 | Inpatient (IN) ==
[2024-05-06 22:22] LABS: Venous Bicarbonate HCO3 22.9 mmol/L (24-28)
[2024-05-06 22:23] LABS: ABS Basophils 0.1 10^3/uL (0.0-0.1); ABS Lymphocytes 0.9 10^3/uL (1.0-4.8); ABS Monocytes 0.7 10^3/uL (0.0-0.9); ABS Neutrophils 10.9 10^3/uL (1.5-7.6); Hematocrit 36.9 % (35-45); Hemoglobin 12.4 g/dL (11.5-14.3); Mean Corpuscular Hemoglobin 29.1 pg (27-33); Mean Corpuscular Hgb Conc 33.6 g/dL (31-36); Mean Corpuscular Volume 86.7 fL (80-97); Platelet Count 431 10^3/uL (150-450); Red Blood Count 4.26 10^6/uL (3.63-4.92); White Blood Count 12.6 10^3/uL (3.8-11.8)
[2024-05-06 23:06] LABS: Acetaminophen < 15 mcg/mL; Alcohol, S < 13 mg/dL (<13); Anion Gap 12 mmol/L (2-16); Blood Urea Nitrogen 21 mg/dL (6-24); CO2 Carbon Dioxide 20 mmol/L (22-32); Calcium 10.5 mg/dL (8.6-10.3); Chloride 109 mmol/L (101-111); Creatinine, Serum 1.15 mg/dL (0.51-0.95); Glucose 151 mg/dL (70-100); Potassium 3.8 mmol/L (3.5-5.0); Salicylate < 2.50 mg/dL (<30); Sodium 141 mmol/L (135-145); eGFR CKD-EPI 53.9 (>60)
[2024-05-06 23:30] LABS: TSH Ultra Thyroid Stim Horm 1.72 mcIU/mL (0.34-5.60)
[2024-05-07] MEDS ORDERED: Lorazepam PYXIS KEY PRN (02:02)
[2024-05-07] MEDS: LORazepam 2 mg VIAL 1 ml IV PUSH ONE (02:11)
[2024-05-07 04:25] LABS: ALT 15 U/L (7-52); AST 22 U/L (13-39); Acetaminophen < 15 mcg/mL; Albumin 4.4 g/dL (3.2-5.2); Alkaline Phosphatase 65 U/L (35-149); Anion Gap 13 mmol/L (2-16); Blood Urea Nitrogen 20 mg/dL (6-24); CO2 Carbon Dioxide 20 mmol/L (22-32); Calcium 9.9 mg/dL (8.6-10.3); Chloride 107 mmol/L (101-111); Creatinine, Serum 1.12 mg/dL (0.51-0.95); Globulin 2.2 g/dL (2-4); Glucose 139 mg/dL (70-100); Sodium 140 mmol/L (135-145); Total Bilirubin 0.5 mg/dL (0.2-1.0); Total Protein 6.6 g/dL (6.4-8.9); eGFR CKD-EPI 55.6 (>60)
[2024-05-07 05:35] LABS: Urine Benzodiazepine Screen None Detected (None Detect); Urine Cannabinoids Screen Presumptive Positive (None Detect); Urine Opiates Screen None Detected (None Detect)
[2024-05-08] MEDS: Aspirin EC 81 mg TAB.EC (enteric coated) PO SCH (10:17)
[2024-05-08] MEDS: OLANZapine 5 mg TAB *ODT PO PRN (15:07)
[2024-05-09] MEDS: Zinc Oxide 40% (TOPICAL) TUBE TOPICAL SCH (09:39)
[2024-05-09] MEDS ORDERED: OLANZapine IM (NF) 10 MG VIAL IM ONE (11:09)
[2024-05-09 11:17] LABS: Urine Benzodiazepine Screen None Detected (None Detect); Urine Buprenorphine Screen None Detected (None Detect); Urine Cannabinoids Screen Presumptive Positive (None Detect); Urine Fentanyl Screen Presumptive Positive (None Detect); Urine Hydrocodone Screen None Detected (None Detect); Urine Opiates Screen Presumptive Positive (None Detect)
[2024-05-09] MEDS: OLANZapine IM (NF) 10 MG VIAL IM ONE (23:10)
[2024-05-10] MEDS: LORazepam 2 MG/ML 1 mL Syringe IM ONE ×3 (01:13→21:38)
[2024-05-10] MEDS ORDERED: Lorazepam PYXIS KEY PRN (02:51)
[2024-05-10 15:06] LABS: ABS Basophils 0.1 10^3/uL (0.0-0.1); ABS Eosinophils 0.1 10^3/uL (0.0-0.5); ABS Lymphocytes 3.4 10^3/uL (1.0-4.8); ABS Monocytes 1.3 10^3/uL (0.0-0.9); ABS Neutrophils 7.2 10^3/uL (1.5-7.6); ABS Nucleated RBC 0.01 10^3/ul; Eosinophil % 1.2 %; Hematocrit 38.2 % (35-45); Hemoglobin 12.7 g/dL (11.5-14.3); Lymphocyte % 28.2 %; Mean Corpuscular Hemoglobin 29.5 pg (27-33); Mean Corpuscular Hgb Conc 33.3 g/dL (31-36); Mean Corpuscular Volume 88.4 fL (80-97); Mean Platelet Volume 8.2 fL (7.5-11.2); Platelet Count 445 10^3/uL (150-450); Red Blood Count 4.32 10^6/uL (3.63-4.92); Red Cell Distribution Width 15.6 % (12-17); White Blood Count 12.2 10^3/uL (3.8-11.8)
[2024-05-10] MEDS: Sterile Water for Inj 10 ML ONE (15:35)
[2024-05-10] MEDS: LORazepam 2 MG/ML 1 mL Syringe ONE ×2 (15:35)
[2024-05-10] MEDS: OLANZapine IM (NF) 10 MG VIAL IM ONE (15:35)
[2024-05-10 15:41] LABS: Albumin 4.6 g/dL (3.5-5.7); Calcium 9.7 mg/dL (8.6-10.3); Creatinine, Serum 1.31 mg/dL (0.51-0.95); Globulin 2.3 g/dL (2-4); HDL Cholesterol 36.6 mg/dL; Magnesium 2.1 mg/dL (1.9-2.7); Potassium 3.8 mmol/L (3.5-5.0); Total Bilirubin 0.7 mg/dL (0.2-1.0); Total Protein 6.9 g/dL (6.4-8.9); eGFR CKD-EPI 46.1 (>60)
[2024-05-10 15:54] LABS: TSH Ultra Thyroid Stim Horm 3.63 mcIU/mL (0.34-5.60)
[2024-05-10] MEDS: Bacitracin OINTMENT TUBE TOPICAL SCH (21:19)
[2024-05-10] MEDS: chlorproMAZINE 25 MG/ML 2 ML (50 MG) IM ONE (21:38)
[2024-05-10] MEDS: Ziprasidone IM 20 mg VIAL 1 ml VIAL IM ONE (22:22)
[2024-05-10] MEDS ORDERED: OLANZapine IM (NF) 10 MG VIAL IM ONE (23:00)
[2024-05-11] MEDS: chlorproMAZINE 25 MG/ML 2 ML (50 MG) ONE (00:17)
[2024-05-11] MEDS: Sterile Water for Inj 10 ML ONE (00:17)
[2024-05-11] MEDS: LORazepam 2 MG/ML 1 mL Syringe ONE (00:17)
[2024-05-11] MEDS: Ziprasidone IM 20 mg VIAL 1 ml VIAL ONE (00:18)
[2024-05-11] MEDS: Haloperidol 5 mg/ml SDV IV/IM 5 MG/ML AMP IM ONE (00:34)
[2024-05-11] MEDS: Haloperidol 5 mg/ml SDV IV/IM 5 MG/ML AMP ONE (00:49)
[2024-05-11] MEDS ORDERED: Buprenorphine 2 mg SL TAB SL PRN (09:15)
[2024-05-14] MEDS: Gadoteridol (CONTRAST) 279.3 MG/ML 10 ML IV ONE (20:52)
[2024-05-15 12:18] LABS: Noroxycodone Conf, Urine Negative ng/mL (Cutoff: 25); Noroxymorphone, Urine Negative ng/mL (Cutoff: 25); Oxycodone Conf, Urine Negative ng/mL (Cutoff: 25); Oxycodone Interpretation, U Negative.; Oxymorphone, Urine Negative ng/mL (Cutoff: 25)
[2024-05-15] MEDS: Buprenorp/Nalox 2-0.5 mg SL TB PO SCH (14:15)
[2024-05-16] MEDS: Al Hydrox/Mg Hydrox/Simet LIQ 30 ML UDC PO PRN (20:33)
[2024-05-18] MEDS: Polyethylene Glycol 3350 17 GM PACKET PO PRN (10:31)
[2024-05-20 09:42] VITALS: BP 115/65
[2024-05-20] MEDS: Ondansetron ODT 4 mg TAB 4 MG TAB PO PRN (18:03)
== END 2024-05-21 08:00 | DRG 885 ==
LOC: ED 21:22 → BSU 05-07 10:15
PROVIDERS: ADMIT Psychiatry & Neurology Psychiatry; ATTEND Student in an Organized Health Care Education/Training Program